=== PATIENT | female | born 1940 | race Caucasian/White ===

== ENCOUNTER 2020-06-26 12:34 | Inpatient (IN) | payer BC ==
[2020-06-26 12:42] VITALS: BMI 26.6
[2020-06-26] MEDS ORDERED: METOPROLOL TARTRATE 5 MG/5 ML VIAL IVPUSH ONE ×3 (13:38→16:02)
[2020-06-26] MEDS ORDERED: METOPROLOL TARTRATE 5 MG/5 ML VIAL ONE ×4 (14:19→16:36)
[2020-06-26 14:37] LABS: BASO % 0.3 % (0-2.0); EOS % 0.6 % (0-4.5); HEMATOCRIT 41.5 % (32.4-45.2); HEMOGLOBIN 13.3 GM/dL (10.7-15.3); LYMPH % 15.6 % (8-40); MCH 28.8 pg (25.7-33.7); MEAN CELL VOLUME 90.1 fl (80-96); MEAN PLT VOLUME 8.3 fl (7.5-11.1); MONO % 8.3 % (3.8-10.2); NEUT % 75.2 % (42.8-82.8); PLATELET COUNT 250 K/MM3 (134-434); RBC 4.61 M/mm3 (3.60-5.2); RDW 16.5 % (11.6-15.6); WHITE BLOOD COUNT 6.9 K/mm3 (4.0-10.0)
[2020-06-26] MEDS ORDERED: dilTIAZem HCL 50 MG/10 ML - 10 ML VIAL IVPUSH ONE ×4 (14:50→21:26)
[2020-06-26 14:55] LABS: POTASSIUM 4.2 mmol/L (3.5-5.1)
[2020-06-26 14:58] LABS: ALBUMIN 3.4 g/dl (3.4-5.0); BLOOD UREA NITROGEN 25.1 mg/dL (7-18); CALCIUM 9.2 mg/dL (8.5-10.1)
[2020-06-26 15:01] LABS: CREATININE 0.7 mg/dL (0.55-1.3)
[2020-06-26] MEDS ORDERED: dilTIAZem HCL 125 MG/25 ML - 25 ML VIAL ONE (15:01)
[2020-06-26 15:03] LABS: BILIRUBIN,TOTAL 0.3 mg/dL (0.2-1); TOT PROT 6.7 g/dl (6.4-8.2)
[2020-06-26 15:06] LABS: N-TERMINAL BNP 3422.9 pg/ml (5-450)
[2020-06-26] MEDS ORDERED: dilTIAZem HCL 50 MG/10 ML - 10 ML VIAL ONE (15:33)
[2020-06-26] MEDS ORDERED: DILTIAZEM INJECTION 125 MG in SODIUM CHLORIDE 100 ML IVPB SCH (21:30)
[2020-06-26] MEDS ORDERED: APIXABAN 5 MG TABLET PO SCH (22:00)
[2020-06-26] MEDS ORDERED: APIXABAN 5 MG TABLET ONE (22:54)
[2020-06-26 23:12] VITALS: TEMP 98.5
[2020-06-27] MEDS ORDERED: DILTIAZEM INJECTION 125 MG in SODIUM CHLORIDE 100 ML IVPB SCH (00:50)
[2020-06-27 06:31] VITALS: BP 139/105; PULSE 150
== END 2020-06-27 06:42 | disposition short-term general hospital (02) | DRG 309 ==
LOC: JER 12:34 → JERBED 17:47
PROVIDERS: ADMIT Hospitalist; ATTEND Hospitalist
DX: I48.0 Paroxysmal atrial fibrillation (principal); I24.8 Other forms of acute ischemic heart disease; R77.8 Other specified abnormalities of plasma proteins; M06.9 Rheumatoid arthritis, unspecified; I11.0 Hypertensive heart disease with heart failure; I50.9 Heart failure, unspecified; I48.92 Unspecified atrial flutter
CPT/HCPCS: 36415; 71045-TC-FY; 80053; 82550; 83880; 84484; 85025; 93005; 93010; 99291; C9803; U0003; U0005

== ENCOUNTER 2020-08-31 10:02 | Emergency (ER) | payer BC ==
[2020-08-31 10:06] VITALS: BP 161/85; PULSE 84; TEMP 98.4; BMI 26.6
[2020-08-31 12:13] LABS: BASO % 0.1 % (0-2.0); EOS % 0.2 % (0-4.5); HEMATOCRIT 31.1 % (32.4-45.2); HEMOGLOBIN 10.2 GM/dL (10.7-15.3); LYMPH % 3.6 % (8-40); MCH 28.9 pg (25.7-33.7); MCHC 32.7 g/dl (32.0-36.0); MEAN CELL VOLUME 88.4 fl (80-96); MEAN PLT VOLUME 6.6 fl (7.5-11.1); MONO % 4.9 % (3.8-10.2); NEUT % 91.2 % (42.8-82.8); PLATELET COUNT 390 K/MM3 (134-434); RBC 3.52 M/mm3 (3.60-5.2); RDW 16.8 % (11.6-15.6); WHITE BLOOD COUNT 11.3 K/mm3 (4.0-10.0)
[2020-08-31] MEDS ORDERED: ACETAMINOPHEN 1000 MG/100 ML VIAL (NON FORMULARY) IVPB ONE (12:18)
[2020-08-31 12:20] LABS: INR 1.26 (0.83-1.09); PROTHROMBIN TIME (PATIENT) 15.1 SEC (9.7-13.0)
[2020-08-31 12:23] LABS: ACTIVATED PTT 40.3 SECONDS (25.2-36.5)
[2020-08-31 12:28] LABS: CHLORIDE 107 mmol/L (98-107); SODIUM 142 mmol/L (136-145)
[2020-08-31 12:30] LABS: ALBUMIN 3.4 g/dl (3.4-5.0); ANION GAP 7 MMOL/L (8-16); CALCIUM 9.2 mg/dL (8.5-10.1); CO2 28 mmol/L (21-32)
[2020-08-31 12:31] LABS: BLOOD UREA NITROGEN 18.9 mg/dL (7-18); GLUCOSE,RANDOM 97 mg/dL (74-106); MAGNESIUM 2.3 mg/dL (1.8-2.4)
[2020-08-31 12:33] LABS: SGPT/ALT 14 U/L (13-61)
[2020-08-31 12:34] LABS: CREATININE 0.6 mg/dL (0.55-1.3); SGOT/AST 17 U/L (15-37)
[2020-08-31 12:35] LABS: BILIRUBIN,TOTAL 0.5 mg/dL (0.2-1); TOT PROT 6.8 g/dl (6.4-8.2)
[2020-08-31 12:36] LABS: ALK PHOS 102 U/L (45-117)
[2020-08-31 12:39] LABS: N-TERMINAL BNP 641.1 pg/ml (5-450)
[2020-08-31] MEDS ORDERED: ACETAMINOPHEN INJECTION 100 ML IVPB ONE (13:26)
[2020-08-31 15:13] LABS: ANISOCYTOSIS 0; MACROCYTOSIS 0; PLATELET ESTIMATE NORMAL
== END 2020-08-31 14:00 | disposition home or self-care (01) ==
LOC: JER 10:02
PROC: 3E0333Z Introduction of Anti-inflammatory into Peripheral Vein, Percutaneous Approach (ICD-10-PCS; principal; 2020-08-31)
DX: R22.42 Localized swelling, mass and lump, left lower limb (principal); R22.41 Localized swelling, mass and lump, right lower limb; M25.561 Pain in right knee
CPT/HCPCS: 36415; 71045-TC-FY; 73562-TC-RT-FY; 80053; 82550; 83735; 83880; 84443; 84484; 85025; 85610; 85730; 93005; 93010; 93970-TC; 99285-25; C9803; J0131; U0003; U0005

== ENCOUNTER 2020-10-16 10:38 | Inpatient (IN) | payer BC, OTHER ==
[2020-10-16 10:54] VITALS: BMI 25.0
[2020-10-16] MEDS ORDERED: ACETAMINOPHEN 325 MG TABLET (FP) PO ONE ×2 (11:52→22:45)
[2020-10-16] MEDS ORDERED: ACETAMINOPHEN 325 MG TABLET (FP) ONE ×2 (12:04→16:43)
[2020-10-16 12:07] LABS: BASO % 0.4 % (0-2.0); EOS % 0.9 % (0-4.5); HEMATOCRIT 19.4 % (32.4-45.2); LYMPH % 12.2 % (8-40); MCH 25.7 pg (25.7-33.7); MCHC 30.5 g/dl (32.0-36.0); MEAN CELL VOLUME 84.3 fl (80-96); MEAN PLT VOLUME 5.9 fl (7.5-11.1); MONO % 4.6 % (3.8-10.2); NEUT % 81.9 % (42.8-82.8); PLATELET COUNT 549 10^3/uL (134-434); RDW 22.1 % (11.6-15.6); WHITE BLOOD COUNT 8.4 K/mm3 (4.0-10.0)
[2020-10-16 12:13] LABS: HEMOGLOBIN 5.9 GM/dL (10.7-15.3)
[2020-10-16 12:28] LABS: CALCIUM 8.2 mg/dL (8.5-10.1)
[2020-10-16 12:29] LABS: ALBUMIN 2.6 g/dl (3.4-5.0); BLOOD UREA NITROGEN 18.6 mg/dL (7-18); MAGNESIUM 2.2 mg/dL (1.8-2.4)
[2020-10-16 12:32] LABS: CREATININE 0.6 mg/dL (0.55-1.3)
[2020-10-16 12:34] LABS: BILIRUBIN,TOTAL 0.6 mg/dL (0.2-1)
[2020-10-16 13:04] LABS: INR 1.56 (0.83-1.09); PROTHROMBIN TIME (PATIENT) 18.9 SEC (9.7-13.0)
[2020-10-16 13:07] LABS: ACTIVATED PTT 38.4 SECONDS (25.2-36.5)
[2020-10-16 13:54] LABS: ANISOCYTOSIS 1+; MACROCYTOSIS 0; PLATELET ESTIMATE INCREASED
[2020-10-16] MEDS ORDERED: PANTOPRAZOLE SODIUM 80 MG in SODIUM CHLORIDE 100 ML IVPB SCH (15:15)
[2020-10-16] MEDS ORDERED: LACTATED RINGERS SOLUTION 1,000 ML/1,000 ML INFUS.BAG IV SCH (15:15)
[2020-10-16] MEDS: PANTOPRAZOLE SODIUM 160 MG in SODIUM CHLORIDE 290 ML IVPB SCH (16:02)
[2020-10-16] MEDS ORDERED: METHOTREXATE 2.5 MG TABLET PO SCH (16:45)
[2020-10-16] MEDS: ACETAMINOPHEN 325 MG TABLET (FP) PO PRN (16:48)
[2020-10-16 22:01] LABS: HEMATOCRIT 22.8 % (32.4-45.2); MCH 25.9 pg (25.7-33.7); MCHC 30.5 g/dl (32.0-36.0); MEAN CELL VOLUME 85.1 fl (80-96); MEAN PLT VOLUME 6.3 fl (7.5-11.1); PLATELET COUNT 523 10^3/uL (134-434); RBC 2.68 M/mm3 (3.60-5.2); WHITE BLOOD COUNT 9.7 K/mm3 (4.0-10.0)
[2020-10-16] MEDS ORDERED: metoPROLOL SUCCINATE 25 MG TAB.SR.24H (FP) PO ONE (22:33)
[2020-10-16] MEDS ORDERED: oxyCODONE HCL 5 MG TABLET PO ONE (22:45)
[2020-10-17] MEDS: ACETAMINOPHEN 325 MG TABLET (FP) PO PRN ×3 (06:44→21:32)
[2020-10-17 07:29] LABS: BASO % 0.4 % (0-2.0); HEMATOCRIT 23.4 % (32.4-45.2); HEMOGLOBIN 7.3 GM/dL (10.7-15.3); LYMPH % 10.1 % (8-40); MCH 26.7 pg (25.7-33.7); MCHC 31.2 g/dl (32.0-36.0); MEAN CELL VOLUME 85.6 fl (80-96); MEAN PLT VOLUME 6.2 fl (7.5-11.1); MONO % 5.9 % (3.8-10.2); NEUT % 82.6 % (42.8-82.8); PLATELET COUNT 513 10^3/uL (134-434); RBC 2.73 M/mm3 (3.60-5.2); RDW 20.8 % (11.6-15.6)
[2020-10-17 07:51] LABS: ALBUMIN 2.6 g/dl (3.4-5.0); BLOOD UREA NITROGEN 11.3 mg/dL (7-18); CALCIUM 8.2 mg/dL (8.5-10.1); MAGNESIUM 2.2 mg/dL (1.8-2.4)
[2020-10-17 07:54] LABS: CREATININE 0.5 mg/dL (0.55-1.3)
[2020-10-17 07:55] LABS: PHOSPHOROUS 3.5 mg/dL (2.5-4.9)
[2020-10-17 07:56] LABS: BILIRUBIN,TOTAL 0.9 mg/dL (0.2-1); TOT PROT 5.7 g/dl (6.4-8.2)
[2020-10-17 08:14] LABS: EPI CELLS 6 /uL (0-25.1); HYALINE CASTS 0 /uL (0-3.1); PH,URINE 6.5 (5.0-8.0); URINE APPEARANCE CLEAR; URINE BACTERIA 57 /uL (0-1359); URINE BILIRUBIN NEGATIVE (NEGATIVE); URINE COLOR YELLOW; URINE GLUCOSE (UA) NEGATIVE (NEGATIVE); URINE KETONE 1+ (NEGATIVE); URINE LEUK ESTERASE NEGATIVE (NEGATIVE); URINE NITRITE NEGATIVE (NEGATIVE); URINE PROTEIN 1+ (NEGATIVE); URINE RBC 4 /uL (0-23.9); URINE WBC 14 /uL (0-25.8)
[2020-10-17] MEDS ORDERED: LACTATED RINGERS SOLUTION 1,000 ML/1,000 ML INFUS.BAG IV SCH (08:28)
[2020-10-17] MEDS ORDERED: FUROSEMIDE 40 MG/4 ML INJECTABLE VIAL IVPUSH ONE (09:58)
[2020-10-17] MEDS: metoPROLOL SUCCINATE 25 MG TAB.SR.24H (FP) PO SCH (10:22)
[2020-10-17] MEDS: AMIODARONE HCL 200 MG TABLET PO SCH (10:22)
[2020-10-17] MEDS: PANTOPRAZOLE SODIUM 160 MG in SODIUM CHLORIDE 290 ML IVPB SCH (14:24)
[2020-10-17] MEDS: LISINOPRIL 10 MG TABLET PO SCH (21:33)
[2020-10-17] MEDS ORDERED: ATORVASTATIN CA 10 MG TABLET (FP) PO SCH (22:00)
[2020-10-17] MEDS ORDERED: MORPHINE SULFATE 2 MG/ML VIAL IVPUSH ONE (22:37)
[2020-10-18 06:41] LABS: BASO % 0.3 % (0-2.0); EOS % 0.7 % (0-4.5); HEMATOCRIT 22.2 % (32.4-45.2); LYMPH % 5.6 % (8-40); MCH 26.6 pg (25.7-33.7); MCHC 31.2 g/dl (32.0-36.0); MEAN CELL VOLUME 85.3 fl (80-96); MEAN PLT VOLUME 6.4 fl (7.5-11.1); MONO % 7.4 % (3.8-10.2); PLATELET COUNT 440 10^3/uL (134-434); RDW 21.4 % (11.6-15.6); WHITE BLOOD COUNT 9.2 K/mm3 (4.0-10.0)
[2020-10-18 06:57] LABS: HEMOGLOBIN 6.9 GM/dL (10.7-15.3)
[2020-10-18 07:01] LABS: BLOOD UREA NITROGEN 10.4 mg/dL (7-18); CALCIUM 8.1 mg/dL (8.5-10.1)
[2020-10-18 07:02] LABS: ALBUMIN 2.3 g/dl (3.4-5.0)
[2020-10-18 07:05] LABS: CREATININE 0.4 mg/dL (0.55-1.3); PHOSPHOROUS 3.2 mg/dL (2.5-4.9)
[2020-10-18 07:06] LABS: BILIRUBIN,TOTAL 0.8 mg/dL (0.2-1); TOT PROT 5.2 g/dl (6.4-8.2)
[2020-10-18] MEDS ORDERED: PANTOPRAZOLE 40 MG TABLET PO SCH (10:00)
[2020-10-18] MEDS: AMIODARONE HCL 200 MG TABLET PO SCH (10:09)
[2020-10-18] MEDS: metoPROLOL SUCCINATE 25 MG TAB.SR.24H (FP) PO SCH (10:10)
[2020-10-18] MEDS: LISINOPRIL 10 MG TABLET PO SCH ×2 (10:10→22:01)
[2020-10-18] MEDS: PANTOPRAZOLE SODIUM 160 MG in SODIUM CHLORIDE 290 ML IVPB SCH (10:27)
[2020-10-18] MEDS ORDERED: POTASSIUM CHLORIDE TABS 20 MEQ TABLET.ER (FP) PO ONE (12:42)
[2020-10-18] MEDS ORDERED: fentaNYL CITRATE 250 MCG/5 ML VIAL ONE (13:55)
[2020-10-18] MEDS ORDERED: PROPOFOL 20 ML ONE (13:56)
[2020-10-18] MEDS ORDERED: SUCCINYLCHOLINE CHLORIDE 200 MG/10 ML SYRINGE ONE (13:57)
[2020-10-18] MEDS ORDERED: ONDANSETRON 4 MG/2 ML VIAL IVPUSH PRN (15:53)
[2020-10-18] MEDS ORDERED: MORPHINE SULFATE 2 MG/ML VIAL IVPUSH ONE (16:03)
[2020-10-18] MEDS ORDERED: MIDAZOLAM HCL 2 MG/2 ML SINGLE DOSE VIAL ONE (16:35)
[2020-10-18] MEDS ORDERED: ACETAMINOPHEN INJECTION 100 ML IVPB ONE (16:35)
[2020-10-18] MEDS ORDERED: ACETAMINOPHEN 1000 MG/100 ML VIAL (NON FORMULARY) IVPB ONE ×3 (16:40→22:00)
[2020-10-18] MEDS: MIDAZOLAM HCL 2 MG/2 ML SINGLE DOSE VIAL IVPUSH PRN ×2 (16:50→17:04)
[2020-10-18] MEDS ORDERED: HYDROmorphone HCl 2 MG/ML VIAL ONE (17:09)
[2020-10-18] MEDS ORDERED: HYDROmorphone HCl 2 MG/ML VIAL IVPUSH ONE ×2 (17:12→17:23)
[2020-10-18] MEDS ORDERED: PT OWN MED DRAWER 7, Y5N ONE ×2 (17:37→20:29)
[2020-10-18] MEDS ORDERED: METHOTREXATE 2.5 MG TABLET PO SCH (18:00)
[2020-10-18] MEDS ORDERED: HYDROmorphone HCl 2 MG/ML VIAL IVPUSH PRN (20:12)
[2020-10-18] MEDS: oxyCODONE HCL 5 MG TABLET PO PRN (20:46)
[2020-10-18] MEDS: ATORVASTATIN CA 10 MG TABLET (FP) PO SCH (21:59)
[2020-10-18] MEDS ORDERED: ceFAZolin 2 GRAM PREMIX BAG IVPB SCH (23:00)
[2020-10-18] MEDS: ceFAZolin 2 GRAM PREMIX BAG IVPB SCH (23:10)
[2020-10-18] MEDS: LACTATED RINGERS SOLUTION 1,000 ML/1,000 ML INFUS.BAG IV SCH (23:11)
[2020-10-19] MEDS: oxyCODONE HCL 5 MG TABLET PO PRN ×2 (03:58→21:44)
[2020-10-19] MEDS: ACETAMINOPHEN 325 MG TABLET (FP) PO PRN ×2 (04:04→21:43)
[2020-10-19] MEDS: ceFAZolin 2 GRAM PREMIX BAG IVPB SCH (06:36)
[2020-10-19 06:50] LABS: BASO % 0.4 % (0-2.0); EOS % 1.4 % (0-4.5); HEMATOCRIT 24.1 % (32.4-45.2); HEMOGLOBIN 7.7 GM/dL (10.7-15.3); LYMPH % 4.2 % (8-40); MCH 27.2 pg (25.7-33.7); MCHC 31.9 g/dl (32.0-36.0); MEAN CELL VOLUME 85.3 fl (80-96); MEAN PLT VOLUME 6.1 fl (7.5-11.1); MONO % 8.3 % (3.8-10.2); NEUT % 85.7 % (42.8-82.8); PLATELET COUNT 394 10^3/uL (134-434); RBC 2.82 M/mm3 (3.60-5.2); RDW 20.6 % (11.6-15.6); WHITE BLOOD COUNT 9.4 K/mm3 (4.0-10.0)
[2020-10-19 07:16] LABS: CALCIUM 7.9 mg/dL (8.5-10.1); CREATININE 0.5 mg/dL (0.55-1.3); PHOSPHOROUS 3.6 mg/dL (2.5-4.9)
[2020-10-19 07:17] LABS: ALBUMIN 2.2 g/dl (3.4-5.0); BLOOD UREA NITROGEN 11.8 mg/dL (7-18); MAGNESIUM 1.8 mg/dL (1.8-2.4)
[2020-10-19 07:18] LABS: BILIRUBIN,TOTAL 0.6 mg/dL (0.2-1); TOT PROT 5.2 g/dl (6.4-8.2)
[2020-10-19] MEDS: AMIODARONE HCL 200 MG TABLET PO SCH (10:20)
[2020-10-19] MEDS: PANTOPRAZOLE 40 MG TABLET PO SCH (10:20)
[2020-10-19] MEDS: LISINOPRIL 10 MG TABLET PO SCH (10:20)
[2020-10-19] MEDS: metoPROLOL SUCCINATE 25 MG TAB.SR.24H (FP) PO SCH (10:30)
[2020-10-19] MEDS: LACTATED RINGERS SOLUTION 1,000 ML/1,000 ML INFUS.BAG IV SCH (15:26)
[2020-10-19] MEDS: ATORVASTATIN CA 10 MG TABLET (FP) PO SCH (21:46)
[2020-10-20] MEDS: LISINOPRIL 10 MG TABLET PO SCH ×3 (06:31→21:01)
[2020-10-20] MEDS: ACETAMINOPHEN 325 MG TABLET (FP) PO PRN (06:33)
[2020-10-20] MEDS: oxyCODONE HCL 5 MG TABLET PO PRN ×3 (06:35→21:01)
[2020-10-20 07:47] LABS: BASO % 0.3 % (0-2.0); EOS % 2.3 % (0-4.5); HEMATOCRIT 23.6 % (32.4-45.2); HEMOGLOBIN 7.6 GM/dL (10.7-15.3); LYMPH % 6.1 % (8-40); MCH 27.4 pg (25.7-33.7); MEAN CELL VOLUME 85.5 fl (80-96); MEAN PLT VOLUME 6.4 fl (7.5-11.1); MONO % 7.9 % (3.8-10.2); NEUT % 83.4 % (42.8-82.8); PLATELET COUNT 394 10^3/uL (134-434); RBC 2.76 M/mm3 (3.60-5.2); RDW 20.6 % (11.6-15.6); WHITE BLOOD COUNT 8.2 K/mm3 (4.0-10.0)
[2020-10-20 07:57] LABS: BLOOD UREA NITROGEN 13.7 mg/dL (7-18); CALCIUM 7.9 mg/dL (8.5-10.1)
[2020-10-20 07:59] LABS: CREATININE 0.5 mg/dL (0.55-1.3)
[2020-10-20 08:00] LABS: PHOSPHOROUS 2.6 mg/dL (2.5-4.9)
[2020-10-20 08:01] LABS: BILIRUBIN,TOTAL 0.4 mg/dL (0.2-1)
[2020-10-20] MEDS: PANTOPRAZOLE 40 MG TABLET PO SCH (09:57)
[2020-10-20] MEDS: AMIODARONE HCL 200 MG TABLET PO SCH (09:58)
[2020-10-20] MEDS: metoPROLOL SUCCINATE 25 MG TAB.SR.24H (FP) PO SCH (09:58)
[2020-10-20 12:04] LABS: ANISOCYTOSIS 1+; MACROCYTOSIS 1+; PLATELET ESTIMATE NORMAL; TARGET CELLS 1+
[2020-10-20] MEDS: LACTATED RINGERS SOLUTION 1,000 ML/1,000 ML INFUS.BAG IV SCH (16:52)
[2020-10-20] MEDS: ATORVASTATIN CA 10 MG TABLET (FP) PO SCH (21:01)
[2020-10-21 07:13] LABS: HEMATOCRIT 23.3 % (32.4-45.2); HEMOGLOBIN 7.1 GM/dL (10.7-15.3); MCH 26.3 pg (25.7-33.7); MCHC 30.7 g/dl (32.0-36.0); MEAN CELL VOLUME 85.7 fl (80-96); MEAN PLT VOLUME 6.4 fl (7.5-11.1); PLATELET COUNT 398 10^3/uL (134-434); RBC 2.72 M/mm3 (3.60-5.2); RDW 20.3 % (11.6-15.6); WHITE BLOOD COUNT 6.1 K/mm3 (4.0-10.0)
[2020-10-21 07:36] LABS: BLOOD UREA NITROGEN 14.9 mg/dL (7-18)
[2020-10-21 07:39] LABS: CREATININE 0.5 mg/dL (0.55-1.3)
[2020-10-21] MEDS: AMIODARONE HCL 200 MG TABLET PO SCH (09:56)
[2020-10-21] MEDS: LISINOPRIL 10 MG TABLET PO SCH ×2 (09:56→21:36)
[2020-10-21] MEDS: PANTOPRAZOLE 40 MG TABLET PO SCH (09:57)
[2020-10-21] MEDS: metoPROLOL SUCCINATE 25 MG TAB.SR.24H (FP) PO SCH (09:57)
[2020-10-21] MEDS: SENNOSIDES 8.6MG TABLET (FP) PO PRN (09:58)
[2020-10-21] MEDS ORDERED: POLYETHYLENE GLYCOL (HEALTHYLAX) 3350 17 GM PACKET PO SCH (10:00)
[2020-10-21] MEDS: oxyCODONE HCL 5 MG TABLET PO PRN (10:30)
[2020-10-21] MEDS: ACETAMINOPHEN 325 MG TABLET (FP) PO PRN ×2 (10:31→22:41)
[2020-10-21] MEDS ORDERED: METHOTREXATE 2.5 MG TABLET PO SCH (11:00)
[2020-10-21] MEDS: POLYETHYLENE GLYCOL (HEALTHYLAX) 3350 17 GM PACKET PO SCH ×2 (14:03→21:37)
[2020-10-21] MEDS: LACTATED RINGERS SOLUTION 1,000 ML/1,000 ML INFUS.BAG IV SCH (16:12)
[2020-10-21] MEDS: ATORVASTATIN CA 10 MG TABLET (FP) PO SCH (21:36)
[2020-10-21] MEDS: DOCUSATE SODIUM 100 MG CAPSULE (FP) PO SCH (21:36)
[2020-10-22] MEDS: LACTATED RINGERS SOLUTION 1,000 ML/1,000 ML INFUS.BAG IV SCH (01:47)
[2020-10-22] MEDS: POLYETHYLENE GLYCOL (HEALTHYLAX) 3350 17 GM PACKET PO SCH ×3 (05:00→21:54)
[2020-10-22] MEDS ORDERED: LISINOPRIL 10 MG TABLET PO ONE (06:38)
[2020-10-22] MEDS ORDERED: metoPROLOL SUCCINATE 25 MG TAB.SR.24H (FP) PO ONE (07:00)
[2020-10-22 08:02] LABS: BASO % 0.4 % (0-2.0); EOS % 2.5 % (0-4.5); HEMATOCRIT 25.6 % (32.4-45.2); LYMPH % 6.9 % (8-40); MCH 26.5 pg (25.7-33.7); MCHC 31.1 g/dl (32.0-36.0); MEAN CELL VOLUME 85.1 fl (80-96); MEAN PLT VOLUME 6.5 fl (7.5-11.1); NEUT % 83.2 % (42.8-82.8); PLATELET COUNT 467 10^3/uL (134-434); RBC 3.01 M/mm3 (3.60-5.2); WHITE BLOOD COUNT 7.8 K/mm3 (4.0-10.0)
[2020-10-22 08:17] LABS: CALCIUM 8.2 mg/dL (8.5-10.1)
[2020-10-22 08:18] LABS: ALBUMIN 2.3 g/dl (3.4-5.0)
[2020-10-22 08:20] LABS: BLOOD UREA NITROGEN 11.4 mg/dL (7-18)
[2020-10-22 08:21] LABS: CREATININE 0.4 mg/dL (0.55-1.3); PHOSPHOROUS 2.5 mg/dL (2.5-4.9)
[2020-10-22 08:22] LABS: BILIRUBIN,TOTAL 0.4 mg/dL (0.2-1); TOT PROT 5.6 g/dl (6.4-8.2)
[2020-10-22] MEDS: AMIODARONE HCL 200 MG TABLET PO SCH (09:12)
[2020-10-22] MEDS: PANTOPRAZOLE 40 MG TABLET PO SCH (09:12)
[2020-10-22] MEDS: ACETAMINOPHEN 325 MG TABLET (FP) PO PRN (12:22)
[2020-10-22] MEDS: oxyCODONE HCL 5 MG TABLET PO PRN (13:48)
[2020-10-22] MEDS ORDERED: FUROSEMIDE 40 MG/4 ML INJECTABLE VIAL IVPUSH ONE (14:15)
[2020-10-22] MEDS ORDERED: amLODIPine BESYLATE 5 MG TABLET (FP) PO ONE (14:44)
[2020-10-22] MEDS: ATORVASTATIN CA 10 MG TABLET (FP) PO SCH (21:54)
[2020-10-22] MEDS: DOCUSATE SODIUM 100 MG CAPSULE (FP) PO SCH (21:54)
[2020-10-22] MEDS: LISINOPRIL 10 MG TABLET PO SCH (21:54)
[2020-10-23] MEDS: POLYETHYLENE GLYCOL (HEALTHYLAX) 3350 17 GM PACKET PO SCH ×3 (06:00→21:44)
[2020-10-23 08:31] LABS: BASO % 0.5 % (0-2.0); EOS % 1.9 % (0-4.5); HEMATOCRIT 24.5 % (32.4-45.2); HEMOGLOBIN 7.7 GM/dL (10.7-15.3); LYMPH % 11.3 % (8-40); MCH 26.7 pg (25.7-33.7); MCHC 31.5 g/dl (32.0-36.0); MEAN CELL VOLUME 84.5 fl (80-96); MEAN PLT VOLUME 6.7 fl (7.5-11.1); MONO % 8.4 % (3.8-10.2); NEUT % 77.9 % (42.8-82.8); PLATELET COUNT 471 10^3/uL (134-434); RDW 20.4 % (11.6-15.6); WHITE BLOOD COUNT 7.3 K/mm3 (4.0-10.0)
[2020-10-23 08:59] LABS: ALBUMIN 2.1 g/dl (3.4-5.0); BLOOD UREA NITROGEN 9.3 mg/dL (7-18); CALCIUM 7.9 mg/dL (8.5-10.1)
[2020-10-23 09:02] LABS: PHOSPHOROUS 2.9 mg/dL (2.5-4.9)
[2020-10-23 09:03] LABS: CREATININE 0.4 mg/dL (0.55-1.3)
[2020-10-23 09:04] LABS: BILIRUBIN,TOTAL 0.5 mg/dL (0.2-1); TOT PROT 5.3 g/dl (6.4-8.2)
[2020-10-23] MEDS: metoPROLOL SUCCINATE 25 MG TAB.SR.24H (FP) PO SCH (09:45)
[2020-10-23] MEDS: AMIODARONE HCL 200 MG TABLET PO SCH (09:45)
[2020-10-23] MEDS: PANTOPRAZOLE 40 MG TABLET PO SCH (09:46)
[2020-10-23] MEDS: LISINOPRIL 10 MG TABLET PO SCH ×2 (09:46→21:40)
[2020-10-23] MEDS: oxyCODONE HCL 5 MG TABLET PO PRN (13:19)
[2020-10-23] MEDS: ACETAMINOPHEN 325 MG TABLET (FP) PO PRN (13:21)
[2020-10-23] MEDS: DOCUSATE SODIUM 100 MG CAPSULE (FP) PO SCH (21:40)
[2020-10-23] MEDS: SENNOSIDES 8.6MG TABLET (FP) PO PRN (21:40)
[2020-10-23] MEDS: ATORVASTATIN CA 10 MG TABLET (FP) PO SCH (21:40)
[2020-10-24] MEDS: POLYETHYLENE GLYCOL (HEALTHYLAX) 3350 17 GM PACKET PO SCH (07:06)
[2020-10-24 07:54] LABS: BASO % 0.8 % (0-2.0); EOS % 3.3 % (0-4.5); HEMATOCRIT 25.4 % (32.4-45.2); MCH 26.3 pg (25.7-33.7); MCHC 31.5 g/dl (32.0-36.0); MEAN CELL VOLUME 83.7 fl (80-96); MEAN PLT VOLUME 6.4 fl (7.5-11.1); MONO % 8.5 % (3.8-10.2); NEUT % 78.4 % (42.8-82.8); PLATELET COUNT 516 10^3/uL (134-434); RBC 3.04 M/mm3 (3.60-5.2); RDW 20.4 % (11.6-15.6); WHITE BLOOD COUNT 6.5 K/mm3 (4.0-10.0)
[2020-10-24 08:18] LABS: ALBUMIN 2.3 g/dl (3.4-5.0); BLOOD UREA NITROGEN 11.2 mg/dL (7-18); CALCIUM 8.1 mg/dL (8.5-10.1)
[2020-10-24 08:21] LABS: CREATININE 0.4 mg/dL (0.55-1.3)
[2020-10-24 08:22] LABS: PHOSPHOROUS 3.2 mg/dL (2.5-4.9)
[2020-10-24 08:23] LABS: BILIRUBIN,TOTAL 0.5 mg/dL (0.2-1); TOT PROT 5.7 g/dl (6.4-8.2)
[2020-10-24] MEDS ORDERED: FUROSEMIDE 40 MG/4 ML INJECTABLE VIAL IVPUSH ONE ×2 (10:35)
[2020-10-24] MEDS ORDERED: MAG HYDROX/AL HYDROX/SIMETH 30 ML UNIT-DOSE CUP PO PRN (10:35)
[2020-10-24] MEDS: PANTOPRAZOLE 40 MG TABLET PO SCH (11:02)
[2020-10-24] MEDS: LISINOPRIL 10 MG TABLET PO SCH ×2 (11:02→21:35)
[2020-10-24] MEDS: metoPROLOL SUCCINATE 25 MG TAB.SR.24H (FP) PO SCH (11:02)
[2020-10-24] MEDS: MULTIVITAMINS THER W-MINERALS COMBO TABLET (FP) PO SCH (11:02)
[2020-10-24] MEDS: AMIODARONE HCL 200 MG TABLET PO SCH (11:03)
[2020-10-24] MEDS: ACETAMINOPHEN 325 MG TABLET (FP) PO PRN ×2 (14:19→22:05)
[2020-10-24 15:09] LABS: N-TERMINAL BNP 2938.4 pg/ml (5-450)
[2020-10-24] MEDS: DOCUSATE SODIUM 100 MG CAPSULE (FP) PO SCH (21:35)
[2020-10-24] MEDS: ATORVASTATIN CA 10 MG TABLET (FP) PO SCH (21:35)
[2020-10-25] MEDS: oxyCODONE HCL 5 MG TABLET PO PRN ×3 (01:27→21:14)
[2020-10-25] MEDS: AMIODARONE HCL 200 MG TABLET PO SCH (09:13)
[2020-10-25] MEDS: PANTOPRAZOLE 40 MG TABLET PO SCH (09:13)
[2020-10-25] MEDS: metoPROLOL SUCCINATE 25 MG TAB.SR.24H (FP) PO SCH (09:14)
[2020-10-25] MEDS: MULTIVITAMINS THER W-MINERALS COMBO TABLET (FP) PO SCH (09:15)
[2020-10-25] MEDS: POLYETHYLENE GLYCOL (HEALTHYLAX) 3350 17 GM PACKET PO SCH (09:15)
[2020-10-25] MEDS: LISINOPRIL 10 MG TABLET PO SCH ×2 (09:15→21:15)
[2020-10-25 11:57] LABS: BASO % 0.5 % (0-2.0); EOS % 2.8 % (0-4.5); HEMATOCRIT 25.2 % (32.4-45.2); HEMOGLOBIN 7.9 GM/dL (10.7-15.3); LYMPH % 7.7 % (8-40); MCHC 31.2 g/dl (32.0-36.0); MEAN CELL VOLUME 83.2 fl (80-96); MEAN PLT VOLUME 6.5 fl (7.5-11.1); MONO % 8.1 % (3.8-10.2); NEUT % 80.9 % (42.8-82.8); PLATELET COUNT 552 10^3/uL (134-434); RBC 3.02 M/mm3 (3.60-5.2); RDW 20.6 % (11.6-15.6); WHITE BLOOD COUNT 7.7 K/mm3 (4.0-10.0)
[2020-10-25 12:26] LABS: CALCIUM 8.3 mg/dL (8.5-10.1)
[2020-10-25 12:27] LABS: ALBUMIN 2.3 g/dl (3.4-5.0); BLOOD UREA NITROGEN 11.7 mg/dL (7-18); MAGNESIUM 2.2 mg/dL (1.8-2.4)
[2020-10-25 12:30] LABS: CREATININE 0.5 mg/dL (0.55-1.3); PHOSPHOROUS 3.3 mg/dL (2.5-4.9)
[2020-10-25 12:31] LABS: BILIRUBIN,TOTAL 0.6 mg/dL (0.2-1)
[2020-10-25 12:32] LABS: TOT PROT 5.7 g/dl (6.4-8.2)
[2020-10-25 13:51] LABS: ANISOCYTOSIS 1+; MACROCYTOSIS 0; OVALOCYTE 1+; PLATELET ESTIMATE INCREASED; TEAR DROP CELLS 1+
[2020-10-25] MEDS: ATORVASTATIN CA 10 MG TABLET (FP) PO SCH (21:15)
[2020-10-25] MEDS: DOCUSATE SODIUM 100 MG CAPSULE (FP) PO SCH (21:15)
[2020-10-26] MEDS: oxyCODONE HCL 5 MG TABLET PO PRN (06:50)
[2020-10-26 07:54] LABS: BASO % 0.7 % (0-2.0); HEMATOCRIT 25.8 % (32.4-45.2); HEMOGLOBIN 7.9 GM/dL (10.7-15.3); LYMPH % 9.5 % (8-40); MCH 25.5 pg (25.7-33.7); MCHC 30.8 g/dl (32.0-36.0); MEAN CELL VOLUME 82.8 fl (80-96); MEAN PLT VOLUME 6.8 fl (7.5-11.1); MONO % 8.8 % (3.8-10.2); PLATELET COUNT 598 10^3/uL (134-434); RBC 3.11 M/mm3 (3.60-5.2); WHITE BLOOD COUNT 6.9 K/mm3 (4.0-10.0)
[2020-10-26 08:12] LABS: CALCIUM 8.4 mg/dL (8.5-10.1)
[2020-10-26 08:13] LABS: ALBUMIN 2.4 g/dl (3.4-5.0); BLOOD UREA NITROGEN 10.6 mg/dL (7-18); MAGNESIUM 2.3 mg/dL (1.8-2.4)
[2020-10-26 08:14] LABS: CREATININE 0.5 mg/dL (0.55-1.3)
[2020-10-26 08:16] LABS: PHOSPHOROUS 3.8 mg/dL (2.5-4.9)
[2020-10-26 08:17] LABS: BILIRUBIN,TOTAL 0.4 mg/dL (0.2-1); TOT PROT 5.8 g/dl (6.4-8.2)
[2020-10-26 09:35] VITALS: BP 145/70; PULSE 86; TEMP 98.1
[2020-10-26] MEDS ORDERED: METHOTREXATE 2.5 MG TABLET PO SCH (10:00)
[2020-10-26] MEDS: POLYETHYLENE GLYCOL (HEALTHYLAX) 3350 17 GM PACKET PO SCH (10:08)
[2020-10-26] MEDS: LISINOPRIL 10 MG TABLET PO SCH (10:08)
[2020-10-26] MEDS: MULTIVITAMINS THER W-MINERALS COMBO TABLET (FP) PO SCH (10:08)
[2020-10-26] MEDS: AMIODARONE HCL 200 MG TABLET PO SCH (10:08)
[2020-10-26] MEDS: PANTOPRAZOLE 40 MG TABLET PO SCH (10:08)
[2020-10-26] MEDS: metoPROLOL SUCCINATE 25 MG TAB.SR.24H (FP) PO SCH (10:08)
== END 2020-10-26 10:27 | DRG 488 ==
LOC: JER 10:38 → JERBED 12:25 → INTOOBSV 12:25 → OBSVTOIN 15:05 → J4W 20:39
PROVIDERS: ATTEND Internal Medicine
PROC: 30233N1 Transfusion of Nonautologous Red Blood Cells into Peripheral Vein, Percutaneous Approach (ICD-10-PCS; 2020-10-16)
PROC: 0S9C0ZZ Drainage of Right Knee Joint, Open Approach (ICD-10-PCS; principal; 2020-10-18 15:00)
DX: M25.061 Hemarthrosis, right knee (principal); D62 Acute posthemorrhagic anemia; S80.01XA Contusion of right knee, initial encounter; I10 Essential (primary) hypertension; E87.6 Hypokalemia; E78.5 Hyperlipidemia, unspecified; D64.9 Anemia, unspecified; Z79.01 Long term (current) use of anticoagulants; E11.9 Type 2 diabetes mellitus without complications; I48.0 Paroxysmal atrial fibrillation; M06.9 Rheumatoid arthritis, unspecified; M25.461 Effusion, right knee; K59.00 Constipation, unspecified; W19.XXXA Unspecified fall, initial encounter; Y93.89 Activity, other specified; Y92.89 Other specified places as the place of occurrence of the external cause; Y99.8 Other external cause status
CPT/HCPCS: 36415; 36430; 36511; 71045-TC-FY; 73560-TC-RT-FY; 73700-TC-RT; 80048; 80053; 81003; 82272; 82550; 82607; 82728; 82746; 83010; 83540; 83550; 83615; 83735; 83880; 84100; 84436; 84443; 84484; 85025; 85027; 85045; 85610; 85730; 86140; 86850; 86900; 86901; 86922; 87070; 87205; 93005; 93010; 94010; 94760; 94761; 97116-GP; 97162-GP; 99285-25; C9803; G0378; J0131; J8610; P9038; P9058; U0003; U0005

== ENCOUNTER 2022-03-08 05:09 | Inpatient (IN) | payer BC ==
[2022-03-08] MEDS ORDERED: METOPROLOL TARTRATE 5 MG/5 ML VIAL ONE ×2 (05:17→08:52)
[2022-03-08] MEDS ORDERED: METOPROLOL TARTRATE 5 MG/5 ML VIAL IVPUSH ONE ×2 (05:28→08:25)
[2022-03-08 07:03] LABS: INR 1.15 (0.83-1.09); PROTHROMBIN TIME (PATIENT) 13.3 SEC (9.7-13.0)
[2022-03-08 07:06] LABS: ACTIVATED PTT 34.8 SECONDS (25.2-36.5)
[2022-03-08] MEDS ORDERED: metoPROLOL SUCCINATE 25 MG TAB.SR.24H (FP) PO ONE ×2 (07:20→07:26)
[2022-03-08 07:30] LABS: BASO % 0.4 % (0-2.0); EOS % 0.2 % (0-4.5); HEMOGLOBIN 13.5 GM/dL (10.7-15.3); MCH 28.4 pg (25.7-33.7); MCHC 31.5 g/dl (32.0-36.0); MEAN CELL VOLUME 90.1 fl (80-96); MEAN PLT VOLUME 8.4 fl (7.5-11.1); MONO % 6.6 % (3.8-10.2); NEUT % 80.8 % (42.8-82.8); PLATELET COUNT 282 10^3/uL (134-434); RBC 4.77 M/mm3 (3.60-5.2); RDW 20.9 % (11.6-15.6); WHITE BLOOD COUNT 9.1 K/mm3 (4.0-10.0)
[2022-03-08 07:34] LABS: LACTIC ACID 2.7 mmol/L (0.4-2.0)
[2022-03-08] MEDS ORDERED: SODIUM CHLORIDE 1,000 ML IV STA (08:27)
[2022-03-08 08:35] LABS: ALBUMIN 3.4 g/dl (3.4-5.0)
[2022-03-08 08:36] LABS: MAGNESIUM 2.4 mg/dL (1.8-2.4)
[2022-03-08 08:38] LABS: PHOSPHOROUS 3.7 mg/dL (2.5-4.9)
[2022-03-08 08:39] LABS: CREATININE 1.1 mg/dL (0.55-1.3)
[2022-03-08 08:40] LABS: BILIRUBIN,TOTAL 0.5 mg/dL (0.2-1); TOT PROT 6.7 g/dl (6.4-8.2)
[2022-03-08 09:06] LABS: ANISOCYTOSIS 1+; MACROCYTOSIS 0
[2022-03-08] MEDS ORDERED: dilTIAZem HCL 125 MG/25 ML - 25 ML VIAL ONE ×2 (09:24→12:47)
[2022-03-08] MEDS ORDERED: METOPROLOL TARTRATE 25 MG TABLET (FP) ONE ×3 (09:24→18:08)
[2022-03-08] MEDS ORDERED: dilTIAZem HCL 50 MG/10 ML - 10 ML VIAL IVPUSH ONE ×2 (09:25→12:43)
[2022-03-08] MEDS ORDERED: METOPROLOL TARTRATE 25 MG TABLET (FP) PO SCH (09:30)
[2022-03-08 10:51] LABS: N-TERMINAL BNP 7890.6 pg/ml (5-450)
[2022-03-08] MEDS: METOPROLOL TARTRATE 25 MG TABLET (FP) PO SCH ×2 (11:57→18:11)
[2022-03-08] MEDS ORDERED: CALCIUM GLUCONATE 10% - 1,000 MG/10 ML VIAL IVPUSH ONE (13:41)
[2022-03-08] MEDS ORDERED: SODIUM CHLORIDE 500 ML IV STA (14:17)
[2022-03-08] MEDS ORDERED: HEPARIN NA (PORCINE) 5,000 UNITS/ML 1ML VIAL IVPUSH ONE (14:55)
[2022-03-08] MEDS ORDERED: HEPARIN NA (PORCINE) 5,000 UNITS/ML 1ML VIAL IVPUSH PRN ×2 (14:55)
[2022-03-08] MEDS ORDERED: AMIODARONE HCL 200 MG TABLET PO ONE (14:59)
[2022-03-08] MEDS ORDERED: AMIODARONE HCL 200 MG TABLET ONE (15:13)
[2022-03-08] MEDS ORDERED: HEPARIN INFUSION - 25,000 UNITS/500 ML INFUS.BAG IVPB ONE ×2 (15:14→16:41)
[2022-03-08] MEDS ORDERED: HEPARIN NA (PORCINE) 5,000 UNITS/ML 1ML VIAL ONE ×2 (15:14→16:41)
[2022-03-08] MEDS: HEPARIN INFUSION - 25,000 UNITS/500 ML INFUS.BAG IVPB SCH (16:50)
[2022-03-09 00:37] LABS: INR 1.15 (0.83-1.09); PROTHROMBIN TIME (PATIENT) 13.2 SEC (9.7-13.0)
[2022-03-09 00:40] LABS: ACTIVATED PTT 93.1 SECONDS (25.2-36.5)
[2022-03-09] MEDS: METOPROLOL TARTRATE 25 MG TABLET (FP) PO SCH ×4 (00:48→17:08)
[2022-03-09] MEDS ORDERED: METOPROLOL TARTRATE 25 MG TABLET (FP) ONE (00:48)
[2022-03-09 01:34] LABS: URINE APPEARANCE CLOUDY; URINE BILIRUBIN NEGATIVE (NEGATIVE); URINE COLOR YELLOW; URINE GLUCOSE (UA) NEGATIVE (NEGATIVE); URINE KETONE NEGATIVE (NEGATIVE); URINE LEUK ESTERASE NEGATIVE (NEGATIVE); URINE NITRITE NEGATIVE (NEGATIVE); URINE PROTEIN TRACE (NEGATIVE); URINE UROBILINOGEN 0.2 mg/dL (0.2-1.0)
[2022-03-09 07:46] LABS: BASO % 0.4 % (0-2.0); HEMOGLOBIN 11.7 GM/dL (10.7-15.3); LYMPH % 13.5 % (8-40); MCH 29.3 pg (25.7-33.7); MCHC 32.4 g/dl (32.0-36.0); MEAN CELL VOLUME 90.5 fl (80-96); MEAN PLT VOLUME 8.3 fl (7.5-11.1); MONO % 7.7 % (3.8-10.2); NEUT % 77.4 % (42.8-82.8); PLATELET COUNT 211 10^3/uL (134-434); RBC 3.98 M/mm3 (3.60-5.2); RDW 19.5 % (11.6-15.6); WHITE BLOOD COUNT 7.7 K/mm3 (4.0-10.0)
[2022-03-09 08:14] LABS: CALCIUM 8.4 mg/dL (8.5-10.1)
[2022-03-09 08:15] LABS: BLOOD UREA NITROGEN 24.6 mg/dL (7-18)
[2022-03-09 08:18] LABS: CREATININE 0.9 mg/dL (0.55-1.3)
[2022-03-09] MEDS: MUPIROCIN 2% TOPICAL OINTMENT FOR DECOLONIZATION NS SCH ×2 (09:42→21:36)
[2022-03-09] MEDS: PANTOPRAZOLE 20 MG TABLET PO SCH (09:43)
[2022-03-09] MEDS: ASPIRIN COATED 81 MG TABLET.EC PO SCH (09:43)
[2022-03-09] MEDS ORDERED: AMIODARONE HCL 200 MG TABLET PO SCH (10:00)
[2022-03-09 11:26] LABS: MAGNESIUM 2.1 mg/dL (1.8-2.4)
[2022-03-09 11:30] LABS: PHOSPHOROUS 2.9 mg/dL (2.5-4.9)
[2022-03-09] MEDS ORDERED: METOPROLOL TARTRATE 5 MG/5 ML VIAL IVPUSH ONE ×3 (14:59→17:27)
[2022-03-09] MEDS: HEPARIN INFUSION - 25,000 UNITS/500 ML INFUS.BAG IVPB SCH (17:05)
[2022-03-09] MEDS: CHLORHEXIDINE GLUCONATE 4% CLEANSER FOR DECOLONIZATION TP SCH (21:36)
[2022-03-09] MEDS: AMIODARONE HCL 200 MG TABLET PO SCH (21:36)
[2022-03-10] MEDS: METOPROLOL TARTRATE 25 MG TABLET (FP) PO SCH ×4 (00:40→18:10)
[2022-03-10 07:25] LABS: HEMATOCRIT 36.5 % (32.4-45.2); HEMOGLOBIN 11.8 GM/dL (10.7-15.3); MCH 28.9 pg (25.7-33.7); MCHC 32.2 g/dl (32.0-36.0); MEAN CELL VOLUME 89.8 fl (80-96); MEAN PLT VOLUME 8.6 fl (7.5-11.1); PLATELET COUNT 210 10^3/uL (134-434); RBC 4.07 M/mm3 (3.60-5.2); RDW 19.9 % (11.6-15.6); WHITE BLOOD COUNT 7.3 K/mm3 (4.0-10.0)
[2022-03-10 07:46] LABS: ALBUMIN 2.7 g/dl (3.4-5.0); BLOOD UREA NITROGEN 19.5 mg/dL (7-18); CALCIUM 8.3 mg/dL (8.5-10.1)
[2022-03-10 07:50] LABS: CREATININE 0.8 mg/dL (0.55-1.3); PHOSPHOROUS 2.4 mg/dL (2.5-4.9)
[2022-03-10 07:51] LABS: BILIRUBIN,TOTAL 0.5 mg/dL (0.2-1); TOT PROT 5.7 g/dl (6.4-8.2)
[2022-03-10] MEDS: PANTOPRAZOLE 20 MG TABLET PO SCH (10:57)
[2022-03-10] MEDS: ASPIRIN COATED 81 MG TABLET.EC PO SCH (10:57)
[2022-03-10] MEDS: MUPIROCIN 2% TOPICAL OINTMENT FOR DECOLONIZATION NS SCH ×2 (10:57→22:11)
[2022-03-10] MEDS: AMIODARONE HCL 200 MG TABLET PO SCH ×2 (10:57→22:11)
[2022-03-10] MEDS ORDERED: METOPROLOL TARTRATE 25 MG TABLET (FP) PO ONE (14:33)
[2022-03-10] MEDS ORDERED: ACETAMINOPHEN 325 MG TABLET (FP) PO ONE (15:00)
[2022-03-10] MEDS: HEPARIN INFUSION - 25,000 UNITS/500 ML INFUS.BAG IVPB SCH (16:40)
[2022-03-10] MEDS: METOPROLOL TARTRATE 50 MG TABLET (FP) PO SCH (22:11)
[2022-03-10] MEDS: CHLORHEXIDINE GLUCONATE 4% CLEANSER FOR DECOLONIZATION TP SCH (22:12)
[2022-03-10] MEDS ORDERED: METOPROLOL TARTRATE 5 MG/5 ML VIAL ONE ×2 (22:28→22:35)
[2022-03-11] MEDS ORDERED: METOPROLOL TARTRATE 5 MG/5 ML VIAL IVPUSH ONE ×4 (00:02→11:30)
[2022-03-11] MEDS: METOPROLOL TARTRATE 50 MG TABLET (FP) PO SCH ×3 (05:45→21:23)
[2022-03-11] MEDS ORDERED: AMIODARONE HCL 200 MG TABLET PO ONE (06:30)
[2022-03-11 08:52] LABS: BASO % 0.4 % (0-2.0); EOS % 0.7 % (0-4.5); HEMATOCRIT 38.5 % (32.4-45.2); LYMPH % 9.5 % (8-40); MCH 28.2 pg (25.7-33.7); MCHC 31.2 g/dl (32.0-36.0); MEAN CELL VOLUME 90.4 fl (80-96); MEAN PLT VOLUME 8.8 fl (7.5-11.1); MONO % 7.2 % (3.8-10.2); NEUT % 82.2 % (42.8-82.8); PLATELET COUNT 210 10^3/uL (134-434); RBC 4.26 M/mm3 (3.60-5.2); RDW 19.4 % (11.6-15.6); WHITE BLOOD COUNT 7.6 K/mm3 (4.0-10.0)
[2022-03-11] MEDS: AMIODARONE HCL 200 MG TABLET PO SCH ×2 (09:02→21:23)
[2022-03-11] MEDS: PANTOPRAZOLE 20 MG TABLET PO SCH (09:02)
[2022-03-11] MEDS: ASPIRIN COATED 81 MG TABLET.EC PO SCH (09:02)
[2022-03-11] MEDS: MUPIROCIN 2% TOPICAL OINTMENT FOR DECOLONIZATION NS SCH (09:03)
[2022-03-11 09:29] LABS: BLOOD UREA NITROGEN 20.6 mg/dL (7-18)
[2022-03-11 09:30] LABS: ALBUMIN 2.8 g/dl (3.4-5.0); MAGNESIUM 2.3 mg/dL (1.8-2.4)
[2022-03-11 09:33] LABS: CREATININE 0.8 mg/dL (0.55-1.3); PHOSPHOROUS 2.9 mg/dL (2.5-4.9)
[2022-03-11 09:34] LABS: TOT PROT 5.9 g/dl (6.4-8.2)
[2022-03-11 09:35] LABS: BILIRUBIN,TOTAL 0.6 mg/dL (0.2-1)
[2022-03-11] MEDS ORDERED: METOPROLOL TARTRATE 5 MG/5 ML VIAL IVPUSH PRN (11:30)
[2022-03-11] MEDS ORDERED: ONDANSETRON 4 MG/2 ML VIAL IVPUSH PRN (11:37)
[2022-03-11] MEDS: FUROSEMIDE 40 MG/4 ML INJECTABLE VIAL IVPUSH SCH (11:45)
[2022-03-11] MEDS ORDERED: ONDANSETRON 4 MG/2 ML VIAL ONE (11:55)
[2022-03-11] MEDS: POLYETHYLENE GLYCOL (HEALTHYLAX) 3350 17 GM PACKET PO SCH (13:10)
[2022-03-11] MEDS ORDERED: HEPARIN INFUSION - 25,000 UNITS/500 ML INFUS.BAG IVPB SCH (20:36)
[2022-03-11] MEDS ORDERED: HEPARIN NA (PORCINE) 5,000 UNITS/ML 1ML VIAL IVPUSH PRN ×4 (20:36)
[2022-03-11] MEDS: dilTIAZem HCL 30 MG TABLET PO SCH (21:23)
[2022-03-11] MEDS ORDERED: MUPIROCIN 2% TOPICAL OINTMENT FOR DECOLONIZATION NS SCH (22:00)
[2022-03-11] MEDS ORDERED: CHLORHEXIDINE GLUCONATE 4% CLEANSER FOR DECOLONIZATION TP SCH (22:00)
[2022-03-12] MEDS: dilTIAZem HCL 30 MG TABLET PO SCH ×3 (05:24→22:18)
[2022-03-12] MEDS: METOPROLOL TARTRATE 50 MG TABLET (FP) PO SCH ×3 (05:24→22:17)
[2022-03-12 08:12] LABS: HEMATOCRIT 36.4 % (32.4-45.2); HEMOGLOBIN 11.4 GM/dL (10.7-15.3); MCH 28.5 pg (25.7-33.7); MCHC 31.5 g/dl (32.0-36.0); MEAN CELL VOLUME 90.5 fl (80-96); MEAN PLT VOLUME 8.9 fl (7.5-11.1); PLATELET COUNT 198 10^3/uL (134-434); RBC 4.02 M/mm3 (3.60-5.2); RDW 19.4 % (11.6-15.6)
[2022-03-12] MEDS ORDERED: ASPIRIN COATED 81 MG TABLET.EC PO SCH (10:00)
[2022-03-12] MEDS: AMIODARONE HCL 200 MG TABLET PO SCH ×2 (10:22→22:17)
[2022-03-12] MEDS: POLYETHYLENE GLYCOL (HEALTHYLAX) 3350 17 GM PACKET PO SCH (10:23)
[2022-03-12] MEDS: FUROSEMIDE 40 MG/4 ML INJECTABLE VIAL IVPUSH SCH (10:23)
[2022-03-12] MEDS: PANTOPRAZOLE 20 MG TABLET PO SCH (10:23)
[2022-03-12] MEDS ORDERED: METOPROLOL TARTRATE 5 MG/5 ML VIAL IVPUSH ONE (12:47)
[2022-03-12 15:04] LABS: ALBUMIN 2.9 g/dl (3.4-5.0); BLOOD UREA NITROGEN 24.9 mg/dL (7-18); MAGNESIUM 2.2 mg/dL (1.8-2.4)
[2022-03-12 15:07] LABS: CREATININE 0.9 mg/dL (0.55-1.3); PHOSPHOROUS 2.7 mg/dL (2.5-4.9)
[2022-03-12 15:09] LABS: BILIRUBIN,TOTAL 0.6 mg/dL (0.2-1); TOT PROT 6.2 g/dl (6.4-8.2)
[2022-03-12] MEDS ORDERED: METOPROLOL TARTRATE 5 MG/5 ML VIAL IVPUSH PRN (16:09)
[2022-03-13] MEDS: dilTIAZem HCL 30 MG TABLET PO SCH ×3 (05:48→22:04)
[2022-03-13 08:10] LABS: HEMATOCRIT 36.2 % (32.4-45.2); HEMOGLOBIN 11.1 GM/dL (10.7-15.3); MCH 27.9 pg (25.7-33.7); MCHC 30.8 g/dl (32.0-36.0); MEAN CELL VOLUME 90.5 fl (80-96); PLATELET COUNT 199 10^3/uL (134-434); RBC 3.99 M/mm3 (3.60-5.2); RDW 19.7 % (11.6-15.6)
[2022-03-13 08:29] LABS: CALCIUM 9.1 mg/dL (8.5-10.1)
[2022-03-13 08:30] LABS: ALBUMIN 2.7 g/dl (3.4-5.0); BLOOD UREA NITROGEN 24.3 mg/dL (7-18)
[2022-03-13 08:33] LABS: CREATININE 0.8 mg/dL (0.55-1.3)
[2022-03-13 08:34] LABS: BILIRUBIN,TOTAL 0.6 mg/dL (0.2-1); TOT PROT 5.8 g/dl (6.4-8.2)
[2022-03-13] MEDS: AMIODARONE HCL 200 MG TABLET PO SCH ×2 (09:48→22:04)
[2022-03-13] MEDS: PANTOPRAZOLE 20 MG TABLET PO SCH (09:48)
[2022-03-13] MEDS: FUROSEMIDE 40 MG/4 ML INJECTABLE VIAL IVPUSH SCH (09:49)
[2022-03-13] MEDS: METOPROLOL TARTRATE 50 MG TABLET (FP) PO SCH ×3 (09:49→22:03)
[2022-03-13] MEDS: POLYETHYLENE GLYCOL (HEALTHYLAX) 3350 17 GM PACKET PO SCH (09:49)
[2022-03-13] MEDS ORDERED: METHOTREXATE 2.5 MG TABLET PO SCH (10:30)
[2022-03-13 15:12] LABS: MAGNESIUM 2.2 mg/dL (1.8-2.4)
[2022-03-14] MEDS: dilTIAZem HCL 30 MG TABLET PO SCH ×3 (05:45→21:03)
[2022-03-14 08:20] LABS: HEMATOCRIT 36.3 % (32.4-45.2); HEMOGLOBIN 11.3 GM/dL (10.7-15.3); MCH 28.1 pg (25.7-33.7); MCHC 31.2 g/dl (32.0-36.0); PLATELET COUNT 225 10^3/uL (134-434); RBC 4.03 M/mm3 (3.60-5.2); RDW 19.3 % (11.6-15.6); WHITE BLOOD COUNT 7.9 K/mm3 (4.0-10.0)
[2022-03-14 08:27] LABS: ALBUMIN 2.7 g/dl (3.4-5.0); BLOOD UREA NITROGEN 20.2 mg/dL (7-18); CREATININE 0.7 mg/dL (0.55-1.3)
[2022-03-14 08:28] LABS: BILIRUBIN,TOTAL 0.6 mg/dL (0.2-1); TOT PROT 5.8 g/dl (6.4-8.2)
[2022-03-14 08:29] LABS: CALCIUM 8.8 mg/dL (8.5-10.1)
[2022-03-14] MEDS: POLYETHYLENE GLYCOL (HEALTHYLAX) 3350 17 GM PACKET PO SCH (09:32)
[2022-03-14] MEDS: ASPIRIN 81 MG CHEWABLE TABLETS PO SCH (09:32)
[2022-03-14] MEDS: AMIODARONE HCL 200 MG TABLET PO SCH ×2 (09:32→21:03)
[2022-03-14] MEDS: PANTOPRAZOLE 20 MG TABLET PO SCH (09:32)
[2022-03-14] MEDS: METOPROLOL TARTRATE 50 MG TABLET (FP) PO SCH ×2 (09:32→21:03)
[2022-03-14 19:39] VITALS: BMI 26.8
[2022-03-15 03:56] VITALS: RESP 20
[2022-03-15 06:05] VITALS: TEMP 98
[2022-03-15] MEDS: dilTIAZem HCL 30 MG TABLET PO SCH ×2 (06:41→14:45)
[2022-03-15 08:17] LABS: BASO % 0.4 % (0-2.0); EOS % 1.8 % (0-4.5); HEMATOCRIT 38.5 % (32.4-45.2); LYMPH % 9.4 % (8-40); MCH 28.3 pg (25.7-33.7); MCHC 31.3 g/dl (32.0-36.0); MEAN CELL VOLUME 90.6 fl (80-96); MONO % 7.8 % (3.8-10.2); NEUT % 80.6 % (42.8-82.8); PLATELET COUNT 241 10^3/uL (134-434); RBC 4.25 M/mm3 (3.60-5.2); WHITE BLOOD COUNT 7.9 K/mm3 (4.0-10.0)
[2022-03-15 08:37] LABS: CALCIUM 9.1 mg/dL (8.5-10.1)
[2022-03-15 08:38] LABS: BLOOD UREA NITROGEN 22.1 mg/dL (7-18); MAGNESIUM 2.3 mg/dL (1.8-2.4)
[2022-03-15 08:41] LABS: CREATININE 0.8 mg/dL (0.55-1.3); PHOSPHOROUS 3.1 mg/dL (2.5-4.9)
[2022-03-15] MEDS: AMIODARONE HCL 200 MG TABLET PO SCH (10:22)
[2022-03-15] MEDS: POLYETHYLENE GLYCOL (HEALTHYLAX) 3350 17 GM PACKET PO SCH (10:22)
[2022-03-15] MEDS: ASPIRIN 81 MG CHEWABLE TABLETS PO SCH (10:22)
[2022-03-15] MEDS: PANTOPRAZOLE 20 MG TABLET PO SCH (10:22)
[2022-03-15] MEDS: METOPROLOL TARTRATE 50 MG TABLET (FP) PO SCH (10:22)
[2022-03-15] MEDS ORDERED: AMIODARONE HCL 200 MG TABLET PO ONE (13:58)
[2022-03-15] MEDS ORDERED: dilTIAZem HCL 30 MG TABLET PO ONE (14:23)
[2022-03-15] MEDS ORDERED: METOPROLOL TARTRATE 50 MG TABLET (FP) PO ONE (14:23)
[2022-03-15 17:10] VITALS: BP 150/68; PULSE 55
== END 2022-03-15 17:11 | disposition home or self-care (01) | DRG 309 ==
LOC: JER 05:09 → JERBED 08:55 → JICU 03-09 01:14 → J4W 03-11 14:38
PROVIDERS: ADMIT Internal Medicine Pulmonary Disease; ATTEND Internal Medicine
DX: I48.0 Paroxysmal atrial fibrillation (principal); I50.20 Unspecified systolic (congestive) heart failure; I50.32 Chronic diastolic (congestive) heart failure; I47.1 Supraventricular tachycardia; I25.119 Atherosclerotic heart disease of native coronary artery with unspecified angina pectoris; E78.5 Hyperlipidemia, unspecified; M06.9 Rheumatoid arthritis, unspecified; I11.0 Hypertensive heart disease with heart failure; R74.01 Elevation of levels of liver transaminase levels
CPT/HCPCS: 0241U-QW; 36415; 71045-TC-FY; 80048; 80053; 81003; 82272; 82550; 83605; 83735; 83880; 84100; 84443; 84484; 85025; 85027; 85610; 85730; 86850; 86900; 86901; 87086; 87186; 93005; 93010; 93306-TC; 99285-25; J1644

== ENCOUNTER 2022-03-25 11:22 | Inpatient (IN) | payer BC ==
[2022-03-25 13:53] LABS: BASO % 0.4 % (0-2.0); EOS % 0.1 % (0-4.5); HEMATOCRIT 36.7 % (32.4-45.2); HEMOGLOBIN 11.5 GM/dL (10.7-15.3); LYMPH % 8.5 % (8-40); MCH 28.3 pg (25.7-33.7); MCHC 31.4 g/dl (32.0-36.0); MEAN CELL VOLUME 90.2 fl (80-96); MEAN PLT VOLUME 7.9 fl (7.5-11.1); MONO % 6.7 % (3.8-10.2); NEUT % 84.3 % (42.8-82.8); PLATELET COUNT 350 10^3/uL (134-434); RBC 4.07 M/mm3 (3.60-5.2); RDW 19.4 % (11.6-15.6)
[2022-03-25] MEDS ORDERED: VANCOMYCIN 1 GM in D5W (PRE-DOCKED) 1,000 MG/250 ML IVPB ONE (14:05)
[2022-03-25] MEDS ORDERED: PIPERACILLIN/TAZOB 4.5 GM 4.5 GM in DEXTROSE 5%-WATER 100 ML IVPB ONE (14:06)
[2022-03-25] MEDS ORDERED: FUROSEMIDE 40 MG/4 ML INJECTABLE VIAL IVPUSH ONE (14:08)
[2022-03-25 14:18] LABS: ALBUMIN 3.1 g/dl (3.4-5.0); BLOOD UREA NITROGEN 22.3 mg/dL (7-18); CALCIUM 9.1 mg/dL (8.5-10.1)
[2022-03-25] MEDS ORDERED: PIPERACILLIN/TAZOB 4.5 GM 4.5 GM/100 ML BAG IVPB ONE (14:19)
[2022-03-25] MEDS ORDERED: FUROSEMIDE 40 MG/4 ML INJECTABLE VIAL ONE (14:19)
[2022-03-25] MEDS ORDERED: VANCOMYCIN/WATER FOR INJ (PEG) 1,000 MG/200 ML BAG IVPB ONE (14:19)
[2022-03-25 14:23] LABS: BILIRUBIN,TOTAL 0.7 mg/dL (0.2-1); TOT PROT 6.4 g/dl (6.4-8.2)
[2022-03-25 14:26] LABS: N-TERMINAL BNP 2402.4 pg/ml (5-450)
[2022-03-25 14:34] LABS: CREATININE 0.7 mg/dL (0.55-1.3)
[2022-03-25] MEDS ORDERED: NOREPINEPHRINE BITARTRATE 4 MG/4 ML ML IV ONE (15:07)
[2022-03-25] MEDS ORDERED: ACETAMINOPHEN 325 MG TABLET (FP) PO PRN (15:30)
[2022-03-25] MEDS ORDERED: METHOTREXATE 2.5 MG TABLET PO SCH (15:30)
[2022-03-25] MEDS ORDERED: POLYETHYLENE GLYCOL (HEALTHYLAX) 3350 17 GM PACKET ONE (21:08)
[2022-03-25] MEDS ORDERED: ATORVASTATIN CA 10 MG TABLET (FP) ONE (21:09)
[2022-03-25] MEDS ORDERED: LISINOPRIL 20 MG TABLET ONE (21:09)
[2022-03-25] MEDS ORDERED: dilTIAZem HCL 30 MG TABLET ONE (21:09)
[2022-03-25] MEDS ORDERED: METOPROLOL TARTRATE 50 MG TABLET (FP) ONE (21:09)
[2022-03-25] MEDS: ATORVASTATIN CA 10 MG TABLET (FP) PO SCH (21:15)
[2022-03-25] MEDS: LISINOPRIL 20 MG TABLET PO SCH (21:15)
[2022-03-25] MEDS: POLYETHYLENE GLYCOL (HEALTHYLAX) 3350 17 GM PACKET PO SCH (21:15)
[2022-03-25] MEDS: dilTIAZem HCL 30 MG TABLET PO SCH (21:15)
[2022-03-25] MEDS: METOPROLOL TARTRATE 50 MG TABLET (FP) PO SCH (21:15)
[2022-03-25] MEDS: METHOTREXATE 2.5 MG TABLET PO SCH (21:59)
[2022-03-25] MEDS ORDERED: AMIODARONE HCL 200 MG TABLET PO SCH (22:00)
[2022-03-26] MEDS ORDERED: FUROSEMIDE 40 MG/4 ML INJECTABLE VIAL ONE ×2 (06:50→13:40)
[2022-03-26] MEDS ORDERED: POLYETHYLENE GLYCOL (HEALTHYLAX) 3350 17 GM PACKET ONE ×2 (06:50→13:39)
[2022-03-26] MEDS ORDERED: dilTIAZem HCL 30 MG TABLET ONE ×2 (06:50→13:40)
[2022-03-26] MEDS: POLYETHYLENE GLYCOL (HEALTHYLAX) 3350 17 GM PACKET PO SCH ×3 (06:55→22:12)
[2022-03-26] MEDS: FUROSEMIDE 40 MG/4 ML INJECTABLE VIAL IVPUSH SCH ×2 (06:55→15:14)
[2022-03-26] MEDS: dilTIAZem HCL 30 MG TABLET PO SCH ×3 (06:57→22:11)
[2022-03-26 07:33] LABS: BASO % 0.5 % (0-2.0); HEMATOCRIT 32.8 % (32.4-45.2); HEMOGLOBIN 10.6 GM/dL (10.7-15.3); LYMPH % 12.2 % (8-40); MCH 28.8 pg (25.7-33.7); MCHC 32.3 g/dl (32.0-36.0); MEAN PLT VOLUME 7.5 fl (7.5-11.1); NEUT % 77.3 % (42.8-82.8); PLATELET COUNT 313 10^3/uL (134-434); RBC 3.68 M/mm3 (3.60-5.2); RDW 18.6 % (11.6-15.6); WHITE BLOOD COUNT 6.4 K/mm3 (4.0-10.0)
[2022-03-26 07:53] LABS: BLOOD UREA NITROGEN 25.5 mg/dL (7-18); CALCIUM 8.8 mg/dL (8.5-10.1); MAGNESIUM 2.4 mg/dL (1.8-2.4)
[2022-03-26 07:56] LABS: PHOSPHOROUS 4.4 mg/dL (2.5-4.9)
[2022-03-26] MEDS ORDERED: dilTIAZem HCL 30 MG TABLET PO SCH (10:00)
[2022-03-26] MEDS: METOPROLOL TARTRATE 50 MG TABLET (FP) PO SCH (10:36)
[2022-03-26] MEDS ORDERED: ENOXAPARIN NA (PORCINE) 40 MG/0.4 ML DISP.SYRIN SQ ONE (10:38)
[2022-03-26] MEDS ORDERED: LISINOPRIL 20 MG TABLET ONE (10:38)
[2022-03-26] MEDS ORDERED: ASPIRIN 81 MG CHEWABLE TABLETS ONE (10:38)
[2022-03-26] MEDS ORDERED: AMIODARONE HCL 200 MG TABLET ONE (10:38)
[2022-03-26] MEDS: LISINOPRIL 20 MG TABLET PO SCH ×2 (10:44→22:12)
[2022-03-26] MEDS: ASPIRIN 81 MG CHEWABLE TABLETS PO SCH (10:44)
[2022-03-26] MEDS: ENOXAPARIN NA (PORCINE) 40 MG/0.4 ML DISP.SYRIN SQ SCH (10:44)
[2022-03-26] MEDS: AMIODARONE HCL 200 MG TABLET PO SCH (10:44)
[2022-03-26] MEDS ORDERED: METOPROLOL TARTRATE 50 MG TABLET (FP) PO ONE (18:47)
[2022-03-26] MEDS ORDERED: METOPROLOL TARTRATE 5 MG/5 ML VIAL IVPUSH ONE (18:47)
[2022-03-26] MEDS ORDERED: METOPROLOL TARTRATE 50 MG TABLET (FP) ONE (18:55)
[2022-03-26] MEDS ORDERED: METOPROLOL TARTRATE 5 MG/5 ML VIAL ONE (18:55)
[2022-03-26] MEDS: ATORVASTATIN CA 10 MG TABLET (FP) PO SCH (22:11)
[2022-03-26 22:50] VITALS: BMI 27.1
[2022-03-27] MEDS: dilTIAZem HCL 30 MG TABLET PO SCH ×3 (05:49→23:40)
[2022-03-27] MEDS: FUROSEMIDE 40 MG/4 ML INJECTABLE VIAL IVPUSH SCH (05:50)
[2022-03-27] MEDS: POLYETHYLENE GLYCOL (HEALTHYLAX) 3350 17 GM PACKET PO SCH ×3 (05:53→23:40)
[2022-03-27] MEDS: AMIODARONE HCL 200 MG TABLET PO SCH ×2 (08:03→09:36)
[2022-03-27] MEDS: METOPROLOL TARTRATE 50 MG TABLET (FP) PO SCH ×3 (08:21→23:43)
[2022-03-27] MEDS ORDERED: dilTIAZem HCL 30 MG TABLET PO SCH (08:28)
[2022-03-27 08:35] LABS: CALCIUM 8.6 mg/dL (8.5-10.1)
[2022-03-27 08:36] LABS: ALBUMIN 2.8 g/dl (3.4-5.0); BLOOD UREA NITROGEN 22.3 mg/dL (7-18); MAGNESIUM 2.1 mg/dL (1.8-2.4)
[2022-03-27 08:39] LABS: CREATININE 0.8 mg/dL (0.55-1.3)
[2022-03-27 08:41] LABS: PHOSPHOROUS 3.3 mg/dL (2.5-4.9); TOT PROT 5.8 g/dl (6.4-8.2)
[2022-03-27] MEDS: ENOXAPARIN NA (PORCINE) 40 MG/0.4 ML DISP.SYRIN SQ SCH (09:35)
[2022-03-27] MEDS: ASPIRIN 81 MG CHEWABLE TABLETS PO SCH (09:35)
[2022-03-27 09:37] LABS: BILIRUBIN,DIRECT 0.2 mg/dL (0.0-0.2); BILIRUBIN,TOTAL 0.7 mg/dL (0.2-1)
[2022-03-27] MEDS: LISINOPRIL 20 MG TABLET PO SCH ×2 (09:38→23:43)
[2022-03-27] MEDS ORDERED: FLU VACC QS2022-23(6MOS UP)/PF 60 MCG/0.5 ML SYRINGE IM ONE (12:00)
[2022-03-27 13:48] LABS: CREATININE 0.9 mg/dL (0.55-1.3)
[2022-03-27] MEDS: ATORVASTATIN CA 10 MG TABLET (FP) PO SCH (23:41)
[2022-03-28] MEDS: dilTIAZem HCL 30 MG TABLET PO SCH ×3 (06:06→21:45)
[2022-03-28] MEDS: POLYETHYLENE GLYCOL (HEALTHYLAX) 3350 17 GM PACKET PO SCH ×3 (06:07→21:41)
[2022-03-28 08:20] LABS: HEMATOCRIT 35.1 % (32.4-45.2); HEMOGLOBIN 11.2 GM/dL (10.7-15.3); MCH 28.5 pg (25.7-33.7); MCHC 31.9 g/dl (32.0-36.0); MEAN CELL VOLUME 89.1 fl (80-96); MEAN PLT VOLUME 7.3 fl (7.5-11.1); PLATELET COUNT 289 10^3/uL (134-434); RBC 3.94 M/mm3 (3.60-5.2); RDW 18.7 % (11.6-15.6); WHITE BLOOD COUNT 6.1 K/mm3 (4.0-10.0)
[2022-03-28 09:14] LABS: CALCIUM 8.7 mg/dL (8.5-10.1)
[2022-03-28 09:15] LABS: MAGNESIUM 2.4 mg/dL (1.8-2.4)
[2022-03-28 09:18] LABS: CREATININE 0.8 mg/dL (0.55-1.3); PHOSPHOROUS 2.9 mg/dL (2.5-4.9)
[2022-03-28] MEDS: LISINOPRIL 20 MG TABLET PO SCH ×2 (09:24→21:42)
[2022-03-28] MEDS: ENOXAPARIN NA (PORCINE) 40 MG/0.4 ML DISP.SYRIN SQ SCH (09:24)
[2022-03-28] MEDS: FUROSEMIDE 40 MG/4 ML INJECTABLE VIAL IVPUSH SCH (09:25)
[2022-03-28] MEDS: ASPIRIN 81 MG CHEWABLE TABLETS PO SCH (09:26)
[2022-03-28] MEDS: METOPROLOL TARTRATE 50 MG TABLET (FP) PO SCH ×2 (09:26→21:42)
[2022-03-28] MEDS: AMIODARONE HCL 200 MG TABLET PO SCH (09:27)
[2022-03-28] MEDS ORDERED: guaiFENesin 200 MG/10 ML 10 ML UNIT-DOSE CUPS PO ONE (18:18)
[2022-03-28] MEDS: ATORVASTATIN CA 10 MG TABLET (FP) PO SCH (21:43)
[2022-03-29] MEDS: dilTIAZem HCL 30 MG TABLET PO SCH ×4 (06:43→22:07)
[2022-03-29] MEDS: POLYETHYLENE GLYCOL (HEALTHYLAX) 3350 17 GM PACKET PO SCH ×3 (06:43→22:07)
[2022-03-29 08:39] LABS: HEMATOCRIT 36.1 % (32.4-45.2); HEMOGLOBIN 11.4 GM/dL (10.7-15.3); MCH 28.3 pg (25.7-33.7); MCHC 31.5 g/dl (32.0-36.0); MEAN CELL VOLUME 89.7 fl (80-96); MEAN PLT VOLUME 7.3 fl (7.5-11.1); PLATELET COUNT 296 10^3/uL (134-434); RBC 4.02 M/mm3 (3.60-5.2); RDW 18.8 % (11.6-15.6); WHITE BLOOD COUNT 7.5 K/mm3 (4.0-10.0)
[2022-03-29 08:53] LABS: BLOOD UREA NITROGEN 17.5 mg/dL (7-18)
[2022-03-29 08:54] LABS: CALCIUM 8.6 mg/dL (8.5-10.1); MAGNESIUM 2.4 mg/dL (1.8-2.4)
[2022-03-29 08:57] LABS: CREATININE 0.8 mg/dL (0.55-1.3); PHOSPHOROUS 2.4 mg/dL (2.5-4.9)
[2022-03-29] MEDS: AMIODARONE HCL 200 MG TABLET PO SCH (10:02)
[2022-03-29] MEDS: METOPROLOL TARTRATE 50 MG TABLET (FP) PO SCH ×2 (10:02→22:07)
[2022-03-29] MEDS: ASPIRIN 81 MG CHEWABLE TABLETS PO SCH (10:02)
[2022-03-29] MEDS: FUROSEMIDE 40 MG/4 ML INJECTABLE VIAL IVPUSH SCH (10:02)
[2022-03-29] MEDS: ENOXAPARIN NA (PORCINE) 40 MG/0.4 ML DISP.SYRIN SQ SCH (10:02)
[2022-03-29] MEDS: LISINOPRIL 20 MG TABLET PO SCH ×2 (10:02→22:07)
[2022-03-29] MEDS: guaiFENesin 200 MG/10 ML 10 ML UNIT-DOSE CUPS PO PRN (18:30)
[2022-03-29] MEDS: ATORVASTATIN CA 10 MG TABLET (FP) PO SCH (22:07)
[2022-03-29] MEDS ORDERED: dilTIAZem HCL 50 MG/10 ML - 10 ML VIAL IVPUSH ONE (22:30)
[2022-03-30] MEDS ORDERED: SODIUM CHLORIDE 250 ML IV STA (02:08)
[2022-03-30] MEDS: POLYETHYLENE GLYCOL (HEALTHYLAX) 3350 17 GM PACKET PO SCH ×3 (06:47→21:27)
[2022-03-30] MEDS: dilTIAZem HCL 30 MG TABLET PO SCH ×3 (06:47→21:27)
[2022-03-30 09:24] LABS: HEMATOCRIT 38.7 % (32.4-45.2); HEMOGLOBIN 12.2 GM/dL (10.7-15.3); MCH 28.4 pg (25.7-33.7); MCHC 31.5 g/dl (32.0-36.0); MEAN CELL VOLUME 90.2 fl (80-96); MEAN PLT VOLUME 6.9 fl (7.5-11.1); PLATELET COUNT 275 10^3/uL (134-434); RDW 18.8 % (11.6-15.6); WHITE BLOOD COUNT 6.5 K/mm3 (4.0-10.0)
[2022-03-30 09:28] LABS: INR 1.2 (0.83-1.09); PROTHROMBIN TIME (PATIENT) 13.8 SEC (9.7-13.0)
[2022-03-30 09:54] LABS: CALCIUM 8.7 mg/dL (8.5-10.1)
[2022-03-30 09:55] LABS: ALBUMIN 2.8 g/dl (3.4-5.0); BLOOD UREA NITROGEN 13.4 mg/dL (7-18); MAGNESIUM 2.2 mg/dL (1.8-2.4)
[2022-03-30 09:58] LABS: CREATININE 0.8 mg/dL (0.55-1.3); PHOSPHOROUS 2.6 mg/dL (2.5-4.9)
[2022-03-30 09:59] LABS: BILIRUBIN,TOTAL 0.7 mg/dL (0.2-1); TOT PROT 6.1 g/dl (6.4-8.2)
[2022-03-30] MEDS: ASPIRIN 81 MG CHEWABLE TABLETS PO SCH (10:10)
[2022-03-30] MEDS: ENOXAPARIN NA (PORCINE) 40 MG/0.4 ML DISP.SYRIN SQ SCH (10:10)
[2022-03-30] MEDS: METOPROLOL TARTRATE 50 MG TABLET (FP) PO SCH ×3 (10:10→21:30)
[2022-03-30] MEDS: AMIODARONE HCL 200 MG TABLET PO SCH (10:10)
[2022-03-30] MEDS: LISINOPRIL 20 MG TABLET PO SCH ×2 (10:10→21:31)
[2022-03-30 10:19] LABS: ANISOCYTOSIS 2+; MACROCYTOSIS 1+; OVALOCYTE 1+
[2022-03-30 14:52] LABS: EPI CELLS 33 /uL (0-25.1); HYALINE CASTS 1 /uL (0-3.1); PH,URINE 6.5 (5.0-8.0); URINE APPEARANCE CLEAR; URINE BACTERIA >9,000 /uL (0-1359); URINE BILIRUBIN NEGATIVE (NEGATIVE); URINE COLOR YELLOW; URINE GLUCOSE (UA) NEGATIVE (NEGATIVE); URINE KETONE NEGATIVE (NEGATIVE); URINE LEUK ESTERASE NEGATIVE (NEGATIVE); URINE NITRITE NEGATIVE (NEGATIVE); URINE PROTEIN 1+ (NEGATIVE); URINE RBC 16 /uL (0-23.9); URINE WBC 6 /uL (0-25.8)
[2022-03-30] MEDS: ACETAMINOPHEN 325 MG TABLET (FP) PO PRN (16:52)
[2022-03-30] MEDS ORDERED: VANCOMYCIN/WATER 1,250 MG/250 ML BAG (RESTRICTED TO ID ONLY) IVPB ONE (17:13)
[2022-03-30] MEDS ORDERED: CEFEPIME 2 GM in DEXTROSE 5%-WATER 100 ML IVPB SCH (17:15)
[2022-03-30] MEDS: ATORVASTATIN CA 10 MG TABLET (FP) PO SCH (21:28)
[2022-03-30] MEDS: guaiFENesin 200 MG/10 ML 10 ML UNIT-DOSE CUPS PO PRN (21:31)
[2022-03-31] MEDS: METOPROLOL TARTRATE 50 MG TABLET (FP) PO SCH ×3 (00:08→22:09)
[2022-03-31] MEDS: dilTIAZem HCL 50 MG/10 ML - 10 ML VIAL IVPUSH PRN (00:39)
[2022-03-31] MEDS: ACETAMINOPHEN 325 MG TABLET (FP) PO PRN ×2 (01:04→16:09)
[2022-03-31] MEDS: BENZOCAINE/MENTH/CETYLPYRD CL 1 EACH LOZENGE MM PRN (01:05)
[2022-03-31] MEDS: dilTIAZem HCL 30 MG TABLET PO SCH ×3 (05:59→17:51)
[2022-03-31] MEDS: POLYETHYLENE GLYCOL (HEALTHYLAX) 3350 17 GM PACKET PO SCH ×3 (05:59→22:30)
[2022-03-31 07:47] LABS: BASO % 0.3 % (0-2.0); EOS % 0.5 % (0-4.5); HEMOGLOBIN 11.8 GM/dL (10.7-15.3); LYMPH % 5.3 % (8-40); MCH 28.4 pg (25.7-33.7); MEAN CELL VOLUME 88.9 fl (80-96); MEAN PLT VOLUME 7.4 fl (7.5-11.1); MONO % 8.9 % (3.8-10.2); PLATELET COUNT 247 10^3/uL (134-434); RBC 4.16 M/mm3 (3.60-5.2); RDW 19.2 % (11.6-15.6); WHITE BLOOD COUNT 6.1 K/mm3 (4.0-10.0)
[2022-03-31 07:54] LABS: CALCIUM 8.7 mg/dL (8.5-10.1)
[2022-03-31 07:55] LABS: ALBUMIN 2.8 g/dl (3.4-5.0); MAGNESIUM 2.1 mg/dL (1.8-2.4)
[2022-03-31 07:57] LABS: CREATININE 0.7 mg/dL (0.55-1.3); PHOSPHOROUS 2.8 mg/dL (2.5-4.9)
[2022-03-31 07:59] LABS: BLOOD UREA NITROGEN 15.8 mg/dL (7-18)
[2022-03-31 08:00] LABS: BILIRUBIN,TOTAL 0.5 mg/dL (0.2-1)
[2022-03-31] MEDS: FOLIC ACID 1 MG TABLET (FP) PO SCH (10:18)
[2022-03-31] MEDS: LISINOPRIL 20 MG TABLET PO SCH ×2 (10:18→22:18)
[2022-03-31] MEDS: AMIODARONE HCL 200 MG TABLET PO SCH ×2 (10:18→22:19)
[2022-03-31] MEDS: ENOXAPARIN NA (PORCINE) 40 MG/0.4 ML DISP.SYRIN SQ SCH (10:18)
[2022-03-31] MEDS: ASPIRIN 81 MG CHEWABLE TABLETS PO SCH (10:18)
[2022-03-31] MEDS: FUROSEMIDE 40 MG/4 ML INJECTABLE VIAL IVPUSH SCH (10:19)
[2022-03-31 14:20] LABS: N-TERMINAL BNP 1371.6 pg/ml (5-450)
[2022-03-31] MEDS: CEFTRIAXONE 1 GM in DEXTROSE 5%-WATER - 50 ML IVPB SCH (15:53)
[2022-03-31] MEDS: KCL 10 MEQ IVPB 10 MEQ/100 ML INFUS.BAG IVPB SCH ×3 (15:53→22:10)
[2022-03-31] MEDS ORDERED: REMDESIVIR 200 MG in SODIUM CHLORIDE 250 ML IVPB ONE (17:00)
[2022-03-31] MEDS ORDERED: KCL 10 MEQ IVPB 10 MEQ/100 ML INFUS.BAG IVPB SCH (22:15)
[2022-03-31] MEDS: ATORVASTATIN CA 10 MG TABLET (FP) PO SCH (22:18)
[2022-03-31] MEDS: guaiFENesin 200 MG/10 ML 10 ML UNIT-DOSE CUPS PO PRN (22:26)
[2022-04-01] MEDS: dilTIAZem HCL 30 MG TABLET PO SCH ×4 (00:11→17:46)
[2022-04-01] MEDS: guaiFENesin 200 MG/10 ML 10 ML UNIT-DOSE CUPS PO PRN ×2 (04:28→19:03)
[2022-04-01] MEDS: dilTIAZem HCL 50 MG/10 ML - 10 ML VIAL IVPUSH PRN (04:29)
[2022-04-01] MEDS: POLYETHYLENE GLYCOL (HEALTHYLAX) 3350 17 GM PACKET PO SCH ×3 (05:50→21:42)
[2022-04-01] MEDS: CEFTRIAXONE 1 GM in DEXTROSE 5%-WATER - 50 ML IVPB SCH (09:00)
[2022-04-01] MEDS: ENOXAPARIN NA (PORCINE) 40 MG/0.4 ML DISP.SYRIN SQ SCH (09:00)
[2022-04-01] MEDS: LISINOPRIL 20 MG TABLET PO SCH ×2 (09:01→21:54)
[2022-04-01] MEDS: FOLIC ACID 1 MG TABLET (FP) PO SCH (09:01)
[2022-04-01] MEDS: METOPROLOL TARTRATE 50 MG TABLET (FP) PO SCH ×2 (09:02→21:54)
[2022-04-01] MEDS: AMIODARONE HCL 200 MG TABLET PO SCH ×2 (09:03→21:54)
[2022-04-01] MEDS: ASPIRIN 81 MG CHEWABLE TABLETS PO SCH (09:03)
[2022-04-01] MEDS: FUROSEMIDE 40 MG/4 ML INJECTABLE VIAL IVPUSH SCH (09:03)
[2022-04-01] MEDS: METHOTREXATE 2.5 MG TABLET PO SCH (09:49)
[2022-04-01] MEDS ORDERED: CEFTRIAXONE 1 GM in DEXTROSE 5%-WATER - 50 ML IVPB SCH (10:00)
[2022-04-01] MEDS ORDERED: LISINOPRIL 20 MG TABLET PO SCH (13:23)
[2022-04-01] MEDS: DEXAMETHASONE SOD PHOSPHATE 10 MG/1 ML VIAL IVPUSH SCH (16:07)
[2022-04-01] MEDS: KCL 10 MEQ IVPB 10 MEQ/100 ML INFUS.BAG IVPB SCH ×2 (16:07→17:04)
[2022-04-01] MEDS: REMDESIVIR 100 MG in SODIUM CHLORIDE 250 ML IVPB SCH (16:08)
[2022-04-01] MEDS ORDERED: POTASSIUM CHLORIDE TABS 20 MEQ TABLET.ER (FP) PO ONE (16:52)
[2022-04-01] MEDS: ATORVASTATIN CA 10 MG TABLET (FP) PO SCH (21:54)
[2022-04-01] MEDS: BENZOCAINE/MENTH/CETYLPYRD CL 1 EACH LOZENGE MM PRN (21:55)
[2022-04-02] MEDS: dilTIAZem HCL 30 MG TABLET PO SCH ×4 (00:44→18:01)
[2022-04-02] MEDS: POLYETHYLENE GLYCOL (HEALTHYLAX) 3350 17 GM PACKET PO SCH ×3 (05:43→21:07)
[2022-04-02] MEDS: BENZOCAINE/MENTH/CETYLPYRD CL 1 EACH LOZENGE MM PRN ×3 (05:44→21:07)
[2022-04-02] MEDS: guaiFENesin 200 MG/10 ML 10 ML UNIT-DOSE CUPS PO PRN ×3 (05:44→21:07)
[2022-04-02 09:25] LABS: BASO % 0.1 % (0-2.0); HEMATOCRIT 36.5 % (32.4-45.2); HEMOGLOBIN 11.6 GM/dL (10.7-15.3); LYMPH % 8.6 % (8-40); MCH 28.4 pg (25.7-33.7); MCHC 31.8 g/dl (32.0-36.0); MEAN CELL VOLUME 89.2 fl (80-96); MEAN PLT VOLUME 7.7 fl (7.5-11.1); MONO % 5.4 % (3.8-10.2); NEUT % 85.9 % (42.8-82.8); PLATELET COUNT 224 10^3/uL (134-434); RBC 4.09 M/mm3 (3.60-5.2); RDW 19.3 % (11.6-15.6); WHITE BLOOD COUNT 4.5 K/mm3 (4.0-10.0)
[2022-04-02 09:57] LABS: ALBUMIN 2.7 g/dl (3.4-5.0); CALCIUM 8.6 mg/dL (8.5-10.1)
[2022-04-02 09:58] LABS: BLOOD UREA NITROGEN 23.3 mg/dL (7-18); MAGNESIUM 2.1 mg/dL (1.8-2.4)
[2022-04-02 10:00] LABS: CREATININE 0.7 mg/dL (0.55-1.3); PHOSPHOROUS 2.8 mg/dL (2.5-4.9)
[2022-04-02 10:02] LABS: BILIRUBIN,TOTAL 0.3 mg/dL (0.2-1)
[2022-04-02] MEDS: ENOXAPARIN NA (PORCINE) 40 MG/0.4 ML DISP.SYRIN SQ SCH (10:35)
[2022-04-02] MEDS: FUROSEMIDE 40 MG/4 ML INJECTABLE VIAL IVPUSH SCH (10:36)
[2022-04-02] MEDS: FOLIC ACID 1 MG TABLET (FP) PO SCH (10:36)
[2022-04-02] MEDS: LISINOPRIL 20 MG TABLET PO SCH ×2 (10:36→21:07)
[2022-04-02] MEDS: DEXAMETHASONE SOD PHOSPHATE 10 MG/1 ML VIAL IVPUSH SCH (10:36)
[2022-04-02] MEDS: METOPROLOL TARTRATE 50 MG TABLET (FP) PO SCH ×2 (10:36→21:07)
[2022-04-02] MEDS: ASPIRIN 81 MG CHEWABLE TABLETS PO SCH (10:36)
[2022-04-02] MEDS: AMIODARONE HCL 200 MG TABLET PO SCH ×2 (10:36→21:06)
[2022-04-02] MEDS: REMDESIVIR 100 MG in SODIUM CHLORIDE 250 ML IVPB SCH (16:20)
[2022-04-02] MEDS: ATORVASTATIN CA 10 MG TABLET (FP) PO SCH (21:07)
[2022-04-03] MEDS: dilTIAZem HCL 30 MG TABLET PO SCH ×5 (00:46→23:06)
[2022-04-03] MEDS: guaiFENesin 200 MG/10 ML 10 ML UNIT-DOSE CUPS PO PRN (03:42)
[2022-04-03] MEDS: BENZOCAINE/MENTH/CETYLPYRD CL 1 EACH LOZENGE MM PRN (03:42)
[2022-04-03] MEDS: POLYETHYLENE GLYCOL (HEALTHYLAX) 3350 17 GM PACKET PO SCH ×3 (06:01→22:21)
[2022-04-03 09:46] LABS: BASO % 0.1 % (0-2.0); HEMATOCRIT 33.8 % (32.4-45.2); HEMOGLOBIN 10.8 GM/dL (10.7-15.3); LYMPH % 7.9 % (8-40); MCH 28.6 pg (25.7-33.7); MCHC 32.1 g/dl (32.0-36.0); MONO % 6.9 % (3.8-10.2); NEUT % 85.1 % (42.8-82.8); PLATELET COUNT 223 10^3/uL (134-434); RDW 18.5 % (11.6-15.6); WHITE BLOOD COUNT 6.5 K/mm3 (4.0-10.0)
[2022-04-03] MEDS: FUROSEMIDE 40 MG TABLET (FP) PO SCH (09:50)
[2022-04-03] MEDS: FOLIC ACID 1 MG TABLET (FP) PO SCH (09:50)
[2022-04-03] MEDS: DEXAMETHASONE SOD PHOSPHATE 10 MG/1 ML VIAL IVPUSH SCH (09:50)
[2022-04-03] MEDS: AMIODARONE HCL 200 MG TABLET PO SCH ×2 (09:50→22:20)
[2022-04-03] MEDS: ASPIRIN 81 MG CHEWABLE TABLETS PO SCH (09:51)
[2022-04-03] MEDS: ENOXAPARIN NA (PORCINE) 40 MG/0.4 ML DISP.SYRIN SQ SCH (09:51)
[2022-04-03] MEDS: METOPROLOL TARTRATE 50 MG TABLET (FP) PO SCH ×2 (09:51→22:20)
[2022-04-03] MEDS: LISINOPRIL 20 MG TABLET PO SCH ×2 (09:57→22:20)
[2022-04-03 10:03] LABS: CALCIUM 8.4 mg/dL (8.5-10.1)
[2022-04-03 10:04] LABS: ALBUMIN 2.8 g/dl (3.4-5.0); BLOOD UREA NITROGEN 27.7 mg/dL (7-18); MAGNESIUM 2.2 mg/dL (1.8-2.4)
[2022-04-03 10:06] LABS: CREATININE 0.8 mg/dL (0.55-1.3); PHOSPHOROUS 2.6 mg/dL (2.5-4.9)
[2022-04-03 10:08] LABS: BILIRUBIN,TOTAL 0.3 mg/dL (0.2-1); TOT PROT 5.8 g/dl (6.4-8.2)
[2022-04-03] MEDS: REMDESIVIR 100 MG in SODIUM CHLORIDE 250 ML IVPB SCH (15:39)
[2022-04-03] MEDS: guaiFENesin/CODEINE 10 ML UNIT-DOSE CUPS PO SCH (22:20)
[2022-04-03] MEDS: ATORVASTATIN CA 10 MG TABLET (FP) PO SCH (22:21)
[2022-04-04] MEDS: POLYETHYLENE GLYCOL (HEALTHYLAX) 3350 17 GM PACKET PO SCH ×3 (07:06→21:55)
[2022-04-04] MEDS: dilTIAZem HCL 30 MG TABLET PO SCH ×4 (07:06→23:29)
[2022-04-04 09:18] LABS: BASO % 0.1 % (0-2.0); HEMATOCRIT 36.1 % (32.4-45.2); HEMOGLOBIN 11.6 GM/dL (10.7-15.3); MCH 28.4 pg (25.7-33.7); MCHC 32.1 g/dl (32.0-36.0); MEAN CELL VOLUME 88.5 fl (80-96); MEAN PLT VOLUME 7.7 fl (7.5-11.1); MONO % 6.9 % (3.8-10.2); PLATELET COUNT 227 10^3/uL (134-434); RBC 4.08 M/mm3 (3.60-5.2); RDW 18.4 % (11.6-15.6); WHITE BLOOD COUNT 6.5 K/mm3 (4.0-10.0)
[2022-04-04 09:21] LABS: CALCIUM 8.7 mg/dL (8.5-10.1)
[2022-04-04 09:22] LABS: ALBUMIN 2.7 g/dl (3.4-5.0); BLOOD UREA NITROGEN 28.8 mg/dL (7-18); MAGNESIUM 2.3 mg/dL (1.8-2.4)
[2022-04-04 09:25] LABS: CREATININE 0.6 mg/dL (0.55-1.3); PHOSPHOROUS 3.6 mg/dL (2.5-4.9)
[2022-04-04 09:26] LABS: BILIRUBIN,TOTAL 0.4 mg/dL (0.2-1)
[2022-04-04 09:27] LABS: TOT PROT 5.8 g/dl (6.4-8.2)
[2022-04-04] MEDS ORDERED: guaiFENesin/CODEINE 5 ML UNIT-DOSE CUPS PO PRN (10:00)
[2022-04-04] MEDS: ENOXAPARIN NA (PORCINE) 40 MG/0.4 ML DISP.SYRIN SQ SCH (10:13)
[2022-04-04] MEDS: LISINOPRIL 20 MG TABLET PO SCH ×2 (10:13→21:55)
[2022-04-04] MEDS: METOPROLOL TARTRATE 50 MG TABLET (FP) PO SCH ×2 (10:13→21:58)
[2022-04-04] MEDS: FUROSEMIDE 40 MG TABLET (FP) PO SCH (10:13)
[2022-04-04] MEDS: AMIODARONE HCL 200 MG TABLET PO SCH (10:13)
[2022-04-04] MEDS: ASPIRIN 81 MG CHEWABLE TABLETS PO SCH (10:13)
[2022-04-04] MEDS: FOLIC ACID 1 MG TABLET (FP) PO SCH (10:13)
[2022-04-04] MEDS: DEXAMETHASONE SOD PHOSPHATE 10 MG/1 ML VIAL IVPUSH SCH (10:14)
[2022-04-04] MEDS: REMDESIVIR 100 MG in SODIUM CHLORIDE 250 ML IVPB SCH (15:22)
[2022-04-04] MEDS: ATORVASTATIN CA 10 MG TABLET (FP) PO SCH (21:50)
[2022-04-04] MEDS: guaiFENesin/CODEINE 10 ML UNIT-DOSE CUPS PO SCH (21:59)
[2022-04-05] MEDS: POLYETHYLENE GLYCOL (HEALTHYLAX) 3350 17 GM PACKET PO SCH ×3 (06:37→21:53)
[2022-04-05] MEDS: dilTIAZem HCL 30 MG TABLET PO SCH ×2 (06:37→12:37)
[2022-04-05 09:32] LABS: ALBUMIN 2.7 g/dl (3.4-5.0); BILIRUBIN,TOTAL 0.5 mg/dL (0.2-1); BLOOD UREA NITROGEN 28.9 mg/dL (7-18); CALCIUM 8.5 mg/dL (8.5-10.1); CREATININE 0.7 mg/dL (0.55-1.3); MAGNESIUM 2.2 mg/dL (1.8-2.4); TOT PROT 5.6 g/dl (6.4-8.2)
[2022-04-05] MEDS: AMIODARONE HCL 200 MG TABLET PO SCH (10:58)
[2022-04-05] MEDS: METOPROLOL TARTRATE 50 MG TABLET (FP) PO SCH (10:58)
[2022-04-05] MEDS: ENOXAPARIN NA (PORCINE) 40 MG/0.4 ML DISP.SYRIN SQ SCH (10:59)
[2022-04-05] MEDS: DEXAMETHASONE SOD PHOSPHATE 10 MG/1 ML VIAL IVPUSH SCH (10:59)
[2022-04-05] MEDS: LISINOPRIL 20 MG TABLET PO SCH ×2 (10:59→21:53)
[2022-04-05] MEDS: FOLIC ACID 1 MG TABLET (FP) PO SCH (10:59)
[2022-04-05] MEDS: FUROSEMIDE 40 MG TABLET (FP) PO SCH (10:59)
[2022-04-05] MEDS: ASPIRIN 81 MG CHEWABLE TABLETS PO SCH (10:59)
[2022-04-05] MEDS ORDERED: AMIODARONE HCL 200 MG TABLET PO SCH (12:45)
[2022-04-05] MEDS: ATORVASTATIN CA 10 MG TABLET (FP) PO SCH (21:53)
[2022-04-05] MEDS: guaiFENesin/CODEINE 10 ML UNIT-DOSE CUPS PO SCH (21:53)
[2022-04-06] MEDS: POLYETHYLENE GLYCOL (HEALTHYLAX) 3350 17 GM PACKET PO SCH ×2 (06:25→14:57)
[2022-04-06 08:12] LABS: BASO % 0.1 % (0-2.0); HEMATOCRIT 35.8 % (32.4-45.2); HEMOGLOBIN 11.6 GM/dL (10.7-15.3); LYMPH % 7.5 % (8-40); MCH 28.4 pg (25.7-33.7); MCHC 32.5 g/dl (32.0-36.0); MEAN CELL VOLUME 87.3 fl (80-96); MEAN PLT VOLUME 7.9 fl (7.5-11.1); MONO % 9.3 % (3.8-10.2); NEUT % 83.1 % (42.8-82.8); PLATELET COUNT 262 10^3/uL (134-434); RBC 4.09 M/mm3 (3.60-5.2); RDW 18.7 % (11.6-15.6); WHITE BLOOD COUNT 7.9 K/mm3 (4.0-10.0)
[2022-04-06 08:18] LABS: CALCIUM 8.1 mg/dL (8.5-10.1)
[2022-04-06 08:19] LABS: ALBUMIN 2.7 g/dl (3.4-5.0); BLOOD UREA NITROGEN 33.3 mg/dL (7-18); MAGNESIUM 2.3 mg/dL (1.8-2.4)
[2022-04-06 08:22] LABS: CREATININE 0.8 mg/dL (0.55-1.3); PHOSPHOROUS 2.7 mg/dL (2.5-4.9)
[2022-04-06 08:23] LABS: BILIRUBIN,TOTAL 0.5 mg/dL (0.2-1); TOT PROT 5.6 g/dl (6.4-8.2)
[2022-04-06] MEDS: LISINOPRIL 20 MG TABLET PO SCH (09:21)
[2022-04-06] MEDS: ENOXAPARIN NA (PORCINE) 40 MG/0.4 ML DISP.SYRIN SQ SCH (09:21)
[2022-04-06] MEDS: FUROSEMIDE 40 MG TABLET (FP) PO SCH (09:21)
[2022-04-06] MEDS: DEXAMETHASONE SOD PHOSPHATE 10 MG/1 ML VIAL IVPUSH SCH (09:21)
[2022-04-06] MEDS: FOLIC ACID 1 MG TABLET (FP) PO SCH (09:21)
[2022-04-06] MEDS: ASPIRIN 81 MG CHEWABLE TABLETS PO SCH (09:21)
[2022-04-06] MEDS ORDERED: AMIODARONE HCL 200 MG TABLET PO SCH (10:00)
[2022-04-06 10:59] VITALS: RESP 18
[2022-04-06 13:59] VITALS: BP 147/70; PULSE 54; TEMP 98.6
== END 2022-04-06 14:58 | disposition home or self-care (01) | DRG 291 ==
LOC: JER 11:22 → JERBED 14:04 → J4W 03-26 21:39 → J4S 03-28 00:20
PROVIDERS: ADMIT Internal Medicine; ATTEND Internal Medicine
PROC: XW033E5 Introduction of Remdesivir Anti-infective into Peripheral Vein, Percutaneous Approach, New Technology Group 5 (ICD-10-PCS; principal; 2022-03-31)
PROC: 3E0333Z Introduction of Anti-inflammatory into Peripheral Vein, Percutaneous Approach (ICD-10-PCS; 2022-04-01)
DX: I11.0 Hypertensive heart disease with heart failure (principal); I50.33 Acute on chronic diastolic (congestive) heart failure; U07.1 COVID-19; I47.20 Ventricular tachycardia, unspecified; N39.0 Urinary tract infection, site not specified; E78.5 Hyperlipidemia, unspecified; M06.9 Rheumatoid arthritis, unspecified; I48.0 Paroxysmal atrial fibrillation; I08.1 Rheumatic disorders of both mitral and tricuspid valves; I25.119 Atherosclerotic heart disease of native coronary artery with unspecified angina pectoris; I27.20 Pulmonary hypertension, unspecified
CPT/HCPCS: 0241U-QW; 36415; 71045-TC-FY; 71250-TC; 80048; 80053; 80076; 81003; 83735; 83880; 84100; 84439; 84443; 84484; 85025; 85027; 85610; 87040; 87070; 87081; 87086; 87186; 93005; 93010; 94761; 97116-GP; 97161-GP; 99285-25; C9399; C9803-CS; G0008; J1100; J8610; Q2036; U0003; U0005

== ENCOUNTER 2022-04-08 12:02 | Observation (INO) | payer BC ==
[2022-04-08] MEDS ORDERED: LACTATED RINGERS SOLUTION 1000 ML INFUS.BAG IV ONE ×2 (13:05→14:43)
[2022-04-08 13:33] LABS: VENOUS BASE EXCESS 3.5 mmol/L (-2-2); VENOUS O2 SATURATION 34.2 % (70-80); VENOUS PCO2 39.6 mmHg (38-52); VENOUS PH 7.459 (7.310-7.410)
[2022-04-08 13:38] LABS: BASO % 0.4 % (0-2.0); EOS % 1.1 % (0-4.5); HEMATOCRIT 44.5 % (32.4-45.2); HEMOGLOBIN 13.8 GM/dL (10.7-15.3); LYMPH % 5.8 % (8-40); MCH 27.6 pg (25.7-33.7); MCHC 30.9 g/dl (32.0-36.0); MEAN CELL VOLUME 89.2 fl (80-96); MEAN PLT VOLUME 8.4 fl (7.5-11.1); MONO % 9.5 % (3.8-10.2); NEUT % 83.2 % (42.8-82.8); PLATELET COUNT 355 10^3/uL (134-434); RBC 4.99 M/mm3 (3.60-5.2); RDW 20.1 % (11.6-15.6)
[2022-04-08] MEDS ORDERED: ACETAMINOPHEN 1000 MG/100 ML BAG IVPB ONE (13:38)
[2022-04-08 13:45] LABS: INR 1.06 (0.83-1.09); PROTHROMBIN TIME (PATIENT) 12.2 SEC (9.7-13.0)
[2022-04-08 13:47] LABS: ACTIVATED PTT 30.6 SECONDS (25.2-36.5)
[2022-04-08 14:13] LABS: BLOOD UREA NITROGEN 40.8 mg/dL (7-18); CALCIUM 9.1 mg/dL (8.5-10.1)
[2022-04-08 14:18] LABS: BILIRUBIN,TOTAL 0.6 mg/dL (0.2-1); TOT PROT 6.2 g/dl (6.4-8.2)
[2022-04-08 14:19] LABS: EPI CELLS >36 /uL (0-25.1); HYALINE CASTS 2 /uL (0-3.1); URINE APPEARANCE CLOUDY; URINE BACTERIA 19 /uL (0-1359); URINE BILIRUBIN NEGATIVE (NEGATIVE); URINE COLOR YELLOW; URINE GLUCOSE (UA) NEGATIVE (NEGATIVE); URINE KETONE NEGATIVE (NEGATIVE); URINE LEUK ESTERASE 1+ (NEGATIVE); URINE NITRITE NEGATIVE (NEGATIVE); URINE PROTEIN 2+ (NEGATIVE); URINE RBC 37 /uL (0-23.9); URINE WBC 32 /uL (0-25.8)
[2022-04-08 14:23] LABS: YEAST NEGATIVE (NEGATIVE)
[2022-04-08 14:26] LABS: ALBUMIN 3.3 g/dl (3.4-5.0)
[2022-04-08 14:38] LABS: MAGNESIUM 2.5 mg/dL (1.8-2.4)
[2022-04-08] MEDS ORDERED: ACETAMINOPHEN INJECTION 100 ML IVPB ONE (15:18)
[2022-04-08 17:10] LABS: PH,URINE 5.5 (5.0-8.0); URINE APPEARANCE CLOUDY; URINE BILIRUBIN NEGATIVE (NEGATIVE); URINE COLOR YELLOW; URINE GLUCOSE (UA) NEGATIVE (NEGATIVE); URINE KETONE NEGATIVE (NEGATIVE); URINE LEUK ESTERASE NEGATIVE (NEGATIVE); URINE NITRITE NEGATIVE (NEGATIVE); URINE PROTEIN TRACE (NEGATIVE)
[2022-04-08] MEDS ORDERED: ENOXAPARIN NA (PORCINE) 40 MG/0.4 ML DISP.SYRIN SQ ONE (22:40)
[2022-04-08] MEDS ORDERED: ATORVASTATIN CA 10 MG TABLET (FP) ONE ×2 (22:40→23:40)
[2022-04-08] MEDS ORDERED: LISINOPRIL 20 MG TABLET ONE (22:40)
[2022-04-08] MEDS: ENOXAPARIN NA (PORCINE) 40 MG/0.4 ML DISP.SYRIN SQ SCH (22:42)
[2022-04-08 23:01] LABS: BASO % 0.2 % (0-2.0); EOS % 1.7 % (0-4.5); HEMATOCRIT 35.5 % (32.4-45.2); HEMOGLOBIN 11.2 GM/dL (10.7-15.3); LYMPH % 10.7 % (8-40); MCHC 31.5 g/dl (32.0-36.0); MEAN PLT VOLUME 7.6 fl (7.5-11.1); MONO % 11.8 % (3.8-10.2); NEUT % 75.6 % (42.8-82.8); PLATELET COUNT 280 10^3/uL (134-434); RBC 3.99 M/mm3 (3.60-5.2); RDW 20.3 % (11.6-15.6); WHITE BLOOD COUNT 8.5 K/mm3 (4.0-10.0)
[2022-04-08] MEDS: LISINOPRIL 20 MG TABLET PO SCH (23:34)
[2022-04-08] MEDS: ATORVASTATIN CA 10 MG TABLET (FP) PO SCH (23:44)
[2022-04-09 06:38] VITALS: BMI 25.0
[2022-04-09 07:59] LABS: BASO % 0.1 % (0-2.0); EOS % 3.2 % (0-4.5); HEMATOCRIT 34.7 % (32.4-45.2); HEMOGLOBIN 11.1 GM/dL (10.7-15.3); LYMPH % 11.4 % (8-40); MCH 28.6 pg (25.7-33.7); MEAN CELL VOLUME 89.2 fl (80-96); MONO % 10.9 % (3.8-10.2); NEUT % 74.4 % (42.8-82.8); PLATELET COUNT 268 10^3/uL (134-434); WHITE BLOOD COUNT 7.9 K/mm3 (4.0-10.0)
[2022-04-09 08:13] LABS: CALCIUM 7.9 mg/dL (8.5-10.1); MAGNESIUM 2.3 mg/dL (1.8-2.4)
[2022-04-09 08:14] LABS: BLOOD UREA NITROGEN 33.9 mg/dL (7-18)
[2022-04-09 08:16] LABS: CREATININE 0.8 mg/dL (0.55-1.3); PHOSPHOROUS 3.1 mg/dL (2.5-4.9)
[2022-04-09 08:17] LABS: TOT PROT 4.9 g/dl (6.4-8.2)
[2022-04-09 08:18] LABS: BILIRUBIN,TOTAL 0.5 mg/dL (0.2-1)
[2022-04-09 08:32] LABS: ALBUMIN 2.5 g/dl (3.4-5.0)
[2022-04-09] MEDS ORDERED: ASPIRIN COATED 81 MG TABLET.EC PO SCH (10:00)
[2022-04-09] MEDS: AMIODARONE HCL 200 MG TABLET PO SCH (10:36)
[2022-04-09] MEDS: LISINOPRIL 20 MG TABLET PO SCH ×2 (10:36→22:18)
[2022-04-09] MEDS: ENOXAPARIN NA (PORCINE) 40 MG/0.4 ML DISP.SYRIN SQ SCH (10:36)
[2022-04-09] MEDS: FUROSEMIDE 40 MG TABLET (FP) PO SCH (10:36)
[2022-04-09 18:31] LABS: BLOOD UREA NITROGEN 32.2 mg/dL (7-18); CALCIUM 8.2 mg/dL (8.5-10.1)
[2022-04-09 18:32] LABS: ALBUMIN 2.8 g/dl (3.4-5.0); MAGNESIUM 2.5 mg/dL (1.8-2.4)
[2022-04-09] MEDS: RIVAROXABAN 20 MG TABLET PO SCH (18:34)
[2022-04-09 18:35] LABS: CREATININE 0.9 mg/dL (0.55-1.3)
[2022-04-09 18:36] LABS: BILIRUBIN,TOTAL 0.4 mg/dL (0.2-1); TOT PROT 5.4 g/dl (6.4-8.2)
[2022-04-09] MEDS: ATORVASTATIN CA 10 MG TABLET (FP) PO SCH (22:17)
[2022-04-10 08:28] LABS: BASO % 0.1 % (0-2.0); EOS % 2.4 % (0-4.5); HEMATOCRIT 33.8 % (32.4-45.2); HEMOGLOBIN 10.8 GM/dL (10.7-15.3); LYMPH % 11.3 % (8-40); MCH 28.7 pg (25.7-33.7); MCHC 31.8 g/dl (32.0-36.0); MEAN CELL VOLUME 90.3 fl (80-96); MEAN PLT VOLUME 8.7 fl (7.5-11.1); MONO % 9.2 % (3.8-10.2); PLATELET COUNT 268 10^3/uL (134-434); RBC 3.75 M/mm3 (3.60-5.2); RDW 19.5 % (11.6-15.6); WHITE BLOOD COUNT 7.4 K/mm3 (4.0-10.0)
[2022-04-10] MEDS: FUROSEMIDE 40 MG TABLET (FP) PO SCH (09:18)
[2022-04-10] MEDS: LISINOPRIL 20 MG TABLET PO SCH ×2 (09:18→23:02)
[2022-04-10] MEDS: AMIODARONE HCL 200 MG TABLET PO SCH (09:19)
[2022-04-10] MEDS ORDERED: AMIODARONE HCL 200 MG TABLET PO SCH (16:18)
[2022-04-10] MEDS: RIVAROXABAN 20 MG TABLET PO SCH (17:15)
[2022-04-10] MEDS: POLYETHYLENE GLYCOL (HEALTHYLAX) 3350 17 GM PACKET PO SCH (23:01)
[2022-04-10] MEDS: ATORVASTATIN CA 10 MG TABLET (FP) PO SCH (23:01)
[2022-04-11 07:19] VITALS: RESP 18
[2022-04-11] MEDS: METHIMAZOLE 5 MG TABLET PO SCH ×2 (08:07→14:11)
[2022-04-11 08:39] LABS: CALCIUM 8.1 mg/dL (8.5-10.1)
[2022-04-11 08:40] LABS: BLOOD UREA NITROGEN 23.9 mg/dL (7-18)
[2022-04-11 08:43] LABS: CREATININE 0.8 mg/dL (0.55-1.3)
[2022-04-11 08:44] LABS: HEMATOCRIT 35.7 % (32.4-45.2); HEMOGLOBIN 11.4 GM/dL (10.7-15.3); MCH 28.8 pg (25.7-33.7); MCHC 31.9 g/dl (32.0-36.0); MEAN CELL VOLUME 90.2 fl (80-96); MEAN PLT VOLUME 7.9 fl (7.5-11.1); PLATELET COUNT 278 10^3/uL (134-434); RBC 3.95 M/mm3 (3.60-5.2); RDW 19.5 % (11.6-15.6)
[2022-04-11 09:05] VITALS: PULSE 58
[2022-04-11] MEDS: POLYETHYLENE GLYCOL (HEALTHYLAX) 3350 17 GM PACKET PO SCH (09:26)
[2022-04-11] MEDS: LISINOPRIL 20 MG TABLET PO SCH (09:26)
[2022-04-11] MEDS: FUROSEMIDE 40 MG TABLET (FP) PO SCH (09:26)
[2022-04-11] MEDS ORDERED: LISINOPRIL 10 MG TABLET PO SCH (12:55)
[2022-04-11 14:26] VITALS: BP 112/47; TEMP 99.2
[2022-04-11] MEDS: RIVAROXABAN 20 MG TABLET PO SCH (17:23)
[2022-04-14 16:07] LABS: THYROID STIM IMMUNOGLOBULIN <0.10 IU/L (0.00-0.55)
== END 2022-04-11 20:50 | disposition home or self-care (01) ==
LOC: JER 12:02 → JERBED 16:23 → UNDOADMOB 16:23 → INTOOBSV 17:17 → OBSVTOIN 17:17 → J4W 04-09 02:46 → JERBED 04-09 02:46 → J4W 04-09 13:36 → JERBED 04-09 13:36
PROVIDERS: ADMIT Internal Medicine; ATTEND Internal Medicine
PROC: 3E033NZ Introduction of Analgesics, Hypnotics, Sedatives into Peripheral Vein, Percutaneous Approach (ICD-10-PCS; principal; 2022-04-09)
PROC: 3E023GC Introduction of Other Therapeutic Substance into Muscle, Percutaneous Approach (ICD-10-PCS; 2022-04-09)
PROC: 3E0337Z Introduction of Electrolytic and Water Balance Substance into Peripheral Vein, Percutaneous Approach (ICD-10-PCS; 2022-04-09)
DX: I25.10 Atherosclerotic heart disease of native coronary artery without angina pectoris (principal); I48.91 Unspecified atrial fibrillation; M25.00 Hemarthrosis, unspecified joint; E86.0 Dehydration; E78.5 Hyperlipidemia, unspecified; I11.9 Hypertensive heart disease without heart failure; I11.0 Hypertensive heart disease with heart failure; I50.30 Unspecified diastolic (congestive) heart failure; M19.90 Unspecified osteoarthritis, unspecified site; U07.1 COVID-19; R09.02 Hypoxemia; D72.0 Genetic anomalies of leukocytes; R00.0 Tachycardia, unspecified; Z79.01 Long term (current) use of anticoagulants; Z88.1 Allergy status to other antibiotic agents
CPT/HCPCS: 0241U-QW; 36415; 70450-TC; 71045-TC-FY; 80048; 80053; 81003; 82803; 83735; 83880; 84100; 84439; 84443; 84445; 84481; 84484; 85025; 85027; 85610; 85730; 86850; 86900; 86901; 87040; 87086; 93005; 93010; 93925-TC; 96372; 96374; 99285-25; G0378

== ENCOUNTER 2022-04-21 09:08 | Inpatient (IN) | payer BC ==
[2022-04-21] MEDS ORDERED: SODIUM CHLORIDE 0.9% 500 ML INFUS.BAG IV ONE (10:31)
[2022-04-21] MEDS ORDERED: dilTIAZem HCL 30 MG TABLET PO ONE (10:31)
[2022-04-21] MEDS ORDERED: dilTIAZem HCL 30 MG TABLET ONE (10:52)
[2022-04-21 12:06] LABS: HEMATOCRIT 33.5 % (32.4-45.2); HEMOGLOBIN 10.5 GM/dL (10.7-15.3); MCH 28.4 pg (25.7-33.7); MCHC 31.4 g/dl (32.0-36.0); MEAN CELL VOLUME 90.6 fl (80-96); MEAN PLT VOLUME 7.4 fl (7.5-11.1); PLATELET COUNT 238 10^3/uL (134-434); RBC 3.69 M/mm3 (3.60-5.2); RDW 19.2 % (11.6-15.6); WHITE BLOOD COUNT 7.6 K/mm3 (4.0-10.0)
[2022-04-21 12:17] LABS: INR 2.44 (0.83-1.09); PROTHROMBIN TIME (PATIENT) 28.3 SEC (9.7-13.0)
[2022-04-21 12:20] LABS: ACTIVATED PTT 46.3 SECONDS (25.2-36.5)
[2022-04-21 12:39] LABS: ALBUMIN 2.7 g/dl (3.4-5.0); BLOOD UREA NITROGEN 24.2 mg/dL (7-18); CALCIUM 8.5 mg/dL (8.5-10.1); MAGNESIUM 2.2 mg/dL (1.8-2.4)
[2022-04-21 12:40] LABS: ANISOCYTOSIS 1+; MACROCYTOSIS 1+
[2022-04-21 12:42] LABS: CREATININE 0.8 mg/dL (0.55-1.3)
[2022-04-21 12:44] LABS: BILIRUBIN,TOTAL 0.8 mg/dL (0.2-1); TOT PROT 5.9 g/dl (6.4-8.2)
[2022-04-21 12:47] LABS: N-TERMINAL BNP 7224.2 pg/ml (5-450)
[2022-04-21 14:58] LABS: ANION GAP 10 MMOL/L (8-16); BLOOD UREA NITROGEN 24.3 mg/dL (7-18); CALCIUM 8.6 mg/dL (8.5-10.1); CHLORIDE 114 mmol/L (98-107); CO2 20 mmol/L (21-32); CREATININE 0.7 mg/dL (0.55-1.3); GLUCOSE,RANDOM 108 mg/dL (74-106); SODIUM 144 mmol/L (136-145)
[2022-04-21] MEDS ORDERED: ACETAMINOPHEN 325 MG TABLET (FP) PO ONE (17:41)
[2022-04-21] MEDS ORDERED: ACETAMINOPHEN 325 MG TABLET (FP) ONE (17:56)
[2022-04-21] MEDS ORDERED: dilTIAZem HCL 50 MG/10 ML - 10 ML VIAL IVPUSH ONE (20:27)
[2022-04-21] MEDS ORDERED: HEPARIN NA (PORCINE) 5,000 UNITS/ML 1ML VIAL IVPUSH PRN ×2 (21:30)
[2022-04-21] MEDS ORDERED: SOTALOL HCL 80 MG TABLET (FP) PO SCH (22:00)
[2022-04-21] MEDS: HEPARIN INFUSION - 25,000 UNITS/500 ML INFUS.BAG IVPB SCH (23:12)
[2022-04-22 00:41] VITALS: BMI 25.9
[2022-04-22] MEDS: HEPARIN INFUSION - 25,000 UNITS/500 ML INFUS.BAG IVPB SCH ×2 (07:00→21:38)
[2022-04-22] MEDS ORDERED: metoPROLOL SUCCINATE 25 MG TAB.SR.24H (FP) PO SCH (10:00)
[2022-04-22] MEDS: METHIMAZOLE 5 MG TABLET PO SCH ×2 (15:00→21:39)
[2022-04-22] MEDS ORDERED: metoPROLOL SUCCINATE 25 MG TAB.SR.24H (FP) PO ONE (18:00)
[2022-04-23] MEDS: METHIMAZOLE 5 MG TABLET PO SCH ×3 (05:40→21:47)
[2022-04-23] MEDS: FUROSEMIDE 40 MG TABLET (FP) PO SCH (09:51)
[2022-04-23] MEDS: LISINOPRIL 10 MG TABLET PO SCH ×2 (09:51→21:47)
[2022-04-23 10:11] LABS: CALCIUM 8.5 mg/dL (8.5-10.1)
[2022-04-23 10:12] LABS: ALBUMIN 2.7 g/dl (3.4-5.0); BLOOD UREA NITROGEN 13.5 mg/dL (7-18)
[2022-04-23 10:15] LABS: CREATININE 0.6 mg/dL (0.55-1.3)
[2022-04-23 10:17] LABS: BILIRUBIN,TOTAL 0.4 mg/dL (0.2-1); TOT PROT 5.7 g/dl (6.4-8.2)
[2022-04-23] MEDS: RIVAROXABAN 20 MG TABLET PO SCH (18:02)
[2022-04-24] MEDS: METHIMAZOLE 5 MG TABLET PO SCH ×3 (06:09→21:36)
[2022-04-24 08:14] LABS: PH,URINE 6.5 (5.0-8.0); URINE APPEARANCE CLEAR; URINE BILIRUBIN NEGATIVE (NEGATIVE); URINE COLOR YELLOW; URINE GLUCOSE (UA) NEGATIVE (NEGATIVE); URINE KETONE NEGATIVE (NEGATIVE); URINE LEUK ESTERASE NEGATIVE (NEGATIVE); URINE NITRITE NEGATIVE (NEGATIVE); URINE PROTEIN TRACE (NEGATIVE)
[2022-04-24 08:25] LABS: BASO % 0.4 % (0-2.0); EOS % 4.5 % (0-4.5); HEMATOCRIT 31.9 % (32.4-45.2); HEMOGLOBIN 10.4 GM/dL (10.7-15.3); LYMPH % 12.9 % (8-40); MCHC 32.5 g/dl (32.0-36.0); MEAN PLT VOLUME 7.4 fl (7.5-11.1); MONO % 8.7 % (3.8-10.2); NEUT % 73.5 % (42.8-82.8); PLATELET COUNT 262 10^3/uL (134-434); RBC 3.58 M/mm3 (3.60-5.2); RDW 18.9 % (11.6-15.6); WHITE BLOOD COUNT 4.9 K/mm3 (4.0-10.0)
[2022-04-24 09:02] LABS: ALBUMIN 2.4 g/dl (3.4-5.0); BLOOD UREA NITROGEN 12.4 mg/dL (7-18); CALCIUM 8.3 mg/dL (8.5-10.1)
[2022-04-24 09:03] LABS: MAGNESIUM 1.9 mg/dL (1.8-2.4)
[2022-04-24 09:05] LABS: CREATININE 0.6 mg/dL (0.55-1.3); PHOSPHOROUS 2.7 mg/dL (2.5-4.9)
[2022-04-24 09:06] LABS: BILIRUBIN,TOTAL 0.4 mg/dL (0.2-1); TOT PROT 5.3 g/dl (6.4-8.2)
[2022-04-24] MEDS: POLYETHYLENE GLYCOL (HEALTHYLAX) 3350 17 GM PACKET PO SCH ×2 (09:56→21:36)
[2022-04-24] MEDS: LISINOPRIL 10 MG TABLET PO SCH ×2 (10:00→21:36)
[2022-04-24] MEDS: FUROSEMIDE 40 MG TABLET (FP) PO SCH (10:00)
[2022-04-24] MEDS: RIVAROXABAN 20 MG TABLET PO SCH (17:21)
[2022-04-25] MEDS: METHIMAZOLE 5 MG TABLET PO SCH ×3 (06:26→21:18)
[2022-04-25 07:58] LABS: BASO % 0.4 % (0-2.0); EOS % 5.6 % (0-4.5); HEMOGLOBIN 10.9 GM/dL (10.7-15.3); LYMPH % 12.4 % (8-40); MCH 28.8 pg (25.7-33.7); MCHC 32.2 g/dl (32.0-36.0); MEAN CELL VOLUME 89.4 fl (80-96); MEAN PLT VOLUME 7.4 fl (7.5-11.1); MONO % 8.8 % (3.8-10.2); NEUT % 72.8 % (42.8-82.8); PLATELET COUNT 272 10^3/uL (134-434); RDW 18.9 % (11.6-15.6); WHITE BLOOD COUNT 4.8 K/mm3 (4.0-10.0)
[2022-04-25 08:15] LABS: CALCIUM 8.4 mg/dL (8.5-10.1)
[2022-04-25 08:16] LABS: ALBUMIN 2.6 g/dl (3.4-5.0); BLOOD UREA NITROGEN 13.5 mg/dL (7-18)
[2022-04-25 08:18] LABS: CREATININE 0.6 mg/dL (0.55-1.3)
[2022-04-25 08:20] LABS: BILIRUBIN,TOTAL 0.3 mg/dL (0.2-1); TOT PROT 5.6 g/dl (6.4-8.2)
[2022-04-25] MEDS: POLYETHYLENE GLYCOL (HEALTHYLAX) 3350 17 GM PACKET PO SCH ×2 (09:11→21:18)
[2022-04-25] MEDS: LISINOPRIL 10 MG TABLET PO SCH ×2 (10:22→21:18)
[2022-04-25] MEDS: FUROSEMIDE 40 MG TABLET (FP) PO SCH (10:22)
[2022-04-25] MEDS: RIVAROXABAN 20 MG TABLET PO SCH (17:29)
[2022-04-26] MEDS: METHIMAZOLE 5 MG TABLET PO SCH ×3 (06:00→22:09)
[2022-04-26 08:03] LABS: BASO % 0.7 % (0-2.0); EOS % 6.4 % (0-4.5); HEMOGLOBIN 11.4 GM/dL (10.7-15.3); MCH 28.1 pg (25.7-33.7); MCHC 31.8 g/dl (32.0-36.0); MEAN CELL VOLUME 88.5 fl (80-96); MEAN PLT VOLUME 7.7 fl (7.5-11.1); MONO % 8.6 % (3.8-10.2); NEUT % 69.3 % (42.8-82.8); PLATELET COUNT 309 10^3/uL (134-434); RBC 4.07 M/mm3 (3.60-5.2); RDW 19.1 % (11.6-15.6); WHITE BLOOD COUNT 5.1 K/mm3 (4.0-10.0)
[2022-04-26 08:30] LABS: ALBUMIN 2.8 g/dl (3.4-5.0); BLOOD UREA NITROGEN 15.2 mg/dL (7-18); CALCIUM 8.8 mg/dL (8.5-10.1)
[2022-04-26 08:33] LABS: CREATININE 0.7 mg/dL (0.55-1.3); PHOSPHOROUS 3.3 mg/dL (2.5-4.9)
[2022-04-26 08:34] LABS: BILIRUBIN,TOTAL 0.4 mg/dL (0.2-1); TOT PROT 5.8 g/dl (6.4-8.2)
[2022-04-26] MEDS: LISINOPRIL 10 MG TABLET PO SCH ×2 (10:08→21:34)
[2022-04-26] MEDS: FUROSEMIDE 40 MG TABLET (FP) PO SCH (10:08)
[2022-04-26] MEDS: POLYETHYLENE GLYCOL (HEALTHYLAX) 3350 17 GM PACKET PO SCH ×2 (10:09→21:35)
[2022-04-26] MEDS: RIVAROXABAN 20 MG TABLET PO SCH (17:20)
[2022-04-27] MEDS: METHIMAZOLE 5 MG TABLET PO SCH ×3 (05:34→22:57)
[2022-04-27 07:45] LABS: BASO % 0.5 % (0-2.0); HEMATOCRIT 32.8 % (32.4-45.2); HEMOGLOBIN 10.9 GM/dL (10.7-15.3); LYMPH % 14.2 % (8-40); MCH 29.3 pg (25.7-33.7); MCHC 33.1 g/dl (32.0-36.0); MEAN CELL VOLUME 88.3 fl (80-96); MEAN PLT VOLUME 7.2 fl (7.5-11.1); MONO % 11.1 % (3.8-10.2); NEUT % 68.2 % (42.8-82.8); PLATELET COUNT 298 10^3/uL (134-434); RBC 3.71 M/mm3 (3.60-5.2); RDW 19.6 % (11.6-15.6); WHITE BLOOD COUNT 5.5 K/mm3 (4.0-10.0)
[2022-04-27 08:05] LABS: ALBUMIN 2.5 g/dl (3.4-5.0); BLOOD UREA NITROGEN 16.8 mg/dL (7-18); CALCIUM 8.4 mg/dL (8.5-10.1); MAGNESIUM 2.1 mg/dL (1.8-2.4)
[2022-04-27 08:08] LABS: CREATININE 0.7 mg/dL (0.55-1.3)
[2022-04-27 08:10] LABS: BILIRUBIN,TOTAL 0.4 mg/dL (0.2-1); TOT PROT 5.6 g/dl (6.4-8.2)
[2022-04-27] MEDS: FUROSEMIDE 40 MG TABLET (FP) PO SCH (10:27)
[2022-04-27] MEDS: POLYETHYLENE GLYCOL (HEALTHYLAX) 3350 17 GM PACKET PO SCH ×2 (10:27→22:57)
[2022-04-27] MEDS: LISINOPRIL 10 MG TABLET PO SCH ×2 (10:27→22:55)
[2022-04-27 11:34] VITALS: RESP 18
[2022-04-27] MEDS: PETROLATUM, WHITE 30 GM TUBE TP SCH (13:23)
[2022-04-27] MEDS: RIVAROXABAN 20 MG TABLET PO SCH (17:26)
[2022-04-28] MEDS: METHIMAZOLE 5 MG TABLET PO SCH ×2 (06:14→14:20)
[2022-04-28 06:47] VITALS: TEMP 98.7
[2022-04-28 07:34] LABS: HEMOGLOBIN 11.3 GM/dL (10.7-15.3); MCH 28.3 pg (25.7-33.7); MCHC 32.3 g/dl (32.0-36.0); MEAN CELL VOLUME 87.7 fl (80-96); MEAN PLT VOLUME 7.6 fl (7.5-11.1); PLATELET COUNT 340 10^3/uL (134-434); RDW 19.2 % (11.6-15.6); WHITE BLOOD COUNT 5.2 K/mm3 (4.0-10.0)
[2022-04-28 07:52] LABS: ALBUMIN 2.6 g/dl (3.4-5.0)
[2022-04-28 07:53] LABS: CALCIUM 8.9 mg/dL (8.5-10.1)
[2022-04-28 07:54] LABS: MAGNESIUM 2.3 mg/dL (1.8-2.4); PHOSPHOROUS 3.6 mg/dL (2.5-4.9)
[2022-04-28 07:55] LABS: CREATININE 0.7 mg/dL (0.55-1.3)
[2022-04-28 07:56] LABS: BILIRUBIN,TOTAL 0.3 mg/dL (0.2-1); TOT PROT 5.7 g/dl (6.4-8.2)
[2022-04-28] MEDS: POTASSIUM CHLORIDE TABS 20 MEQ TABLET.ER (FP) PO SCH ×2 (10:29→10:46)
[2022-04-28] MEDS: POLYETHYLENE GLYCOL (HEALTHYLAX) 3350 17 GM PACKET PO SCH (10:39)
[2022-04-28] MEDS: FUROSEMIDE 40 MG TABLET (FP) PO SCH (10:46)
[2022-04-28] MEDS: LISINOPRIL 10 MG TABLET PO SCH (10:46)
[2022-04-28] MEDS: PETROLATUM, WHITE 30 GM TUBE TP SCH (10:46)
[2022-04-28 14:31] VITALS: BP 127/77; PULSE 66
== END 2022-04-28 15:12 | disposition home or self-care (01) | DRG 308 ==
LOC: JER 09:08 → INTOOBSV 11:44 → JERBED 11:44 → UNDOADMOB 11:44 → JERBED 15:33 → J4W 21:57 → OBSVTOIN 04-22 09:20
PROVIDERS: ADMIT Internal Medicine; ATTEND Internal Medicine
DX: I48.0 Paroxysmal atrial fibrillation (principal); I50.43 Acute on chronic combined systolic (congestive) and diastolic (congestive) heart failure; U07.1 COVID-19; M33.13 Other dermatomyositis without myopathy; E78.5 Hyperlipidemia, unspecified; M06.9 Rheumatoid arthritis, unspecified; E05.80 Other thyrotoxicosis without thyrotoxic crisis or storm; T46.2X5A Adverse effect of other antidysrhythmic drugs, initial encounter; I11.0 Hypertensive heart disease with heart failure; I27.20 Pulmonary hypertension, unspecified; R77.8 Other specified abnormalities of plasma proteins; R04.0 Epistaxis; I25.119 Atherosclerotic heart disease of native coronary artery with unspecified angina pectoris; I47.20 Ventricular tachycardia, unspecified; E87.6 Hypokalemia
CPT/HCPCS: 36415; 71045-TC-FY; 80048; 80053; 81003; 83735; 83880; 84100; 84439; 84443; 84484; 85025; 85027; 85610; 85730; 86140; 86850; 86900; 86901; 87086; 87186; 93005; 93010; 97162-GP; 99285-25; C9803-CS; G0378; J1644; U0003; U0005

== ENCOUNTER 2022-05-05 09:56 | Inpatient (IN) | payer BC ==
[2022-05-05 11:33] LABS: WHITE BLOOD COUNT 9.1 K/mm3 (4.0-10.0)
[2022-05-05 11:34] LABS: BASO % 0.3 % (0-2.0); EOS % 0.1 % (0-4.5); HEMATOCRIT 34.4 % (32.4-45.2); MCHC 32.1 g/dl (32.0-36.0); MEAN CELL VOLUME 87.1 fl (80-96); MEAN PLT VOLUME 7.2 fl (7.5-11.1); MONO % 5.5 % (3.8-10.2); NEUT % 88.1 % (42.8-82.8); PLATELET COUNT 527 10^3/uL (134-434); RBC 3.95 M/mm3 (3.60-5.2); RDW 19.6 % (11.6-15.6)
[2022-05-05 11:38] LABS: INR 1.42 (0.83-1.09); PROTHROMBIN TIME (PATIENT) 16.4 SEC (9.7-13.0)
[2022-05-05 12:01] LABS: ALBUMIN 3.1 g/dl (3.4-5.0); BLOOD UREA NITROGEN 16.4 mg/dL (7-18); CALCIUM 9.2 mg/dL (8.5-10.1); MAGNESIUM 2.3 mg/dL (1.8-2.4)
[2022-05-05 12:05] LABS: CREATININE 0.9 mg/dL (0.55-1.3)
[2022-05-05 12:06] LABS: TOT PROT 6.6 g/dl (6.4-8.2)
[2022-05-05 12:07] LABS: BILIRUBIN,TOTAL 0.5 mg/dL (0.2-1)
[2022-05-05 12:10] LABS: N-TERMINAL BNP 3539.2 pg/ml (5-450)
[2022-05-05] MEDS ORDERED: dilTIAZem HCL 50 MG/10 ML - 10 ML VIAL IVPUSH ONE (18:32)
[2022-05-05] MEDS ORDERED: dilTIAZem HCL 50 MG/10 ML - 10 ML VIAL ONE (18:36)
[2022-05-06] MEDS ORDERED: dilTIAZem HCL 50 MG/10 ML - 10 ML VIAL IVPUSH ONE (02:18)
[2022-05-06 02:40] VITALS: BMI 26.3
[2022-05-06] MEDS: METHIMAZOLE 5 MG TABLET PO SCH ×3 (06:42→21:18)
[2022-05-06 07:30] LABS: BASO % 0.6 % (0-2.0); EOS % 0.8 % (0-4.5); MCH 27.8 pg (25.7-33.7); MCHC 32.2 g/dl (32.0-36.0); MEAN CELL VOLUME 86.5 fl (80-96); MEAN PLT VOLUME 7.5 fl (7.5-11.1); MONO % 8.6 % (3.8-10.2); PLATELET COUNT 482 10^3/uL (134-434); RBC 3.58 M/mm3 (3.60-5.2); RDW 19.8 % (11.6-15.6); WHITE BLOOD COUNT 6.7 K/mm3 (4.0-10.0)
[2022-05-06 09:21] LABS: CALCIUM 8.9 mg/dL (8.5-10.1)
[2022-05-06 09:22] LABS: ALBUMIN 2.8 g/dl (3.4-5.0); BLOOD UREA NITROGEN 18.2 mg/dL (7-18); MAGNESIUM 2.2 mg/dL (1.8-2.4)
[2022-05-06 09:24] LABS: CREATININE 0.9 mg/dL (0.55-1.3)
[2022-05-06 09:26] LABS: BILIRUBIN,TOTAL 0.4 mg/dL (0.2-1); PHOSPHOROUS 3.5 mg/dL (2.5-4.9); TOT PROT 5.8 g/dl (6.4-8.2)
[2022-05-06] MEDS: POLYETHYLENE GLYCOL (HEALTHYLAX) 3350 17 GM PACKET PO SCH ×2 (09:36→21:19)
[2022-05-06] MEDS: LISINOPRIL 10 MG TABLET PO SCH ×2 (09:36→21:18)
[2022-05-06] MEDS: FUROSEMIDE 40 MG TABLET (FP) PO SCH (09:36)
[2022-05-06] MEDS ORDERED: ENOXAPARIN NA (PORCINE) 40 MG/0.4 ML DISP.SYRIN SQ SCH (10:00)
[2022-05-06] MEDS ORDERED: DIGOXIN 0.5 MG/2 ML AMPUL IVPUSH ONE ×3 (11:06→23:08)
[2022-05-06] MEDS ORDERED: POTASSIUM CHLORIDE TABS 10 MEQ TABLET.ER (FP) PO ONE (12:40)
[2022-05-06 14:58] LABS: EPI CELLS 6 /uL (0-25.1); HYALINE CASTS 0 /uL (0-3.1); URINE APPEARANCE CLEAR; URINE BACTERIA >9,000 /uL (0-1359); URINE BILIRUBIN NEGATIVE (NEGATIVE); URINE COLOR YELLOW; URINE GLUCOSE (UA) NEGATIVE (NEGATIVE); URINE KETONE NEGATIVE (NEGATIVE); URINE LEUK ESTERASE TRACE (NEGATIVE); URINE NITRITE NEGATIVE (NEGATIVE); URINE PROTEIN NEGATIVE (NEGATIVE); URINE RBC 17 /uL (0-23.9); URINE UROBILINOGEN 0.2 mg/dL (0.2-1.0); URINE WBC 32 /uL (0-25.8)
[2022-05-06] MEDS: RIVAROXABAN 15 MG TABLET PO SCH (17:12)
[2022-05-07] MEDS ORDERED: DIGOXIN 0.5 MG/2 ML AMPUL ONE (02:51)
[2022-05-07 03:30] VITALS: RESP 20
[2022-05-07] MEDS: DIGOXIN 0.125 MG TABLET PO SCH ×2 (06:16→09:43)
[2022-05-07] MEDS: METHIMAZOLE 5 MG TABLET PO SCH ×3 (06:25→21:23)
[2022-05-07 08:33] LABS: HEMATOCRIT 33.1 % (32.4-45.2); HEMOGLOBIN 10.5 GM/dL (10.7-15.3); MCH 27.6 pg (25.7-33.7); MCHC 31.9 g/dl (32.0-36.0); MEAN CELL VOLUME 86.6 fl (80-96); MEAN PLT VOLUME 7.5 fl (7.5-11.1); PLATELET COUNT 497 10^3/uL (134-434); RBC 3.82 M/mm3 (3.60-5.2); RDW 19.3 % (11.6-15.6); WHITE BLOOD COUNT 8.1 K/mm3 (4.0-10.0)
[2022-05-07 08:44] LABS: ALBUMIN 2.8 g/dl (3.4-5.0); BLOOD UREA NITROGEN 18.6 mg/dL (7-18); CALCIUM 8.4 mg/dL (8.5-10.1)
[2022-05-07 08:45] LABS: MAGNESIUM 1.9 mg/dL (1.8-2.4)
[2022-05-07 08:47] LABS: BILIRUBIN,TOTAL 0.4 mg/dL (0.2-1); CREATININE 0.8 mg/dL (0.55-1.3); PHOSPHOROUS 3.2 mg/dL (2.5-4.9); TOT PROT 5.9 g/dl (6.4-8.2)
[2022-05-07] MEDS: LISINOPRIL 10 MG TABLET PO SCH ×2 (09:43→21:23)
[2022-05-07] MEDS: POLYETHYLENE GLYCOL (HEALTHYLAX) 3350 17 GM PACKET PO SCH ×2 (09:43→21:23)
[2022-05-07] MEDS: FUROSEMIDE 40 MG TABLET (FP) PO SCH (09:44)
[2022-05-07] MEDS: RIVAROXABAN 15 MG TABLET PO SCH (17:08)
[2022-05-07 22:37] VITALS: BP 135/81; PULSE 108; TEMP 98.9
== END 2022-05-08 02:00 | disposition home health service (06) | DRG 308 ==
LOC: JER 09:56 → JERBED 20:23 → OBSVTOIN 23:34 → J4W 05-06 02:06
PROVIDERS: ADMIT Internal Medicine; ATTEND Internal Medicine
DX: I48.92 Unspecified atrial flutter (principal); U07.1 COVID-19; I50.42 Chronic combined systolic (congestive) and diastolic (congestive) heart failure; I25.10 Atherosclerotic heart disease of native coronary artery without angina pectoris; I11.0 Hypertensive heart disease with heart failure; E78.5 Hyperlipidemia, unspecified; Z79.01 Long term (current) use of anticoagulants; I48.0 Paroxysmal atrial fibrillation; E05.80 Other thyrotoxicosis without thyrotoxic crisis or storm; T46.2X5A Adverse effect of other antidysrhythmic drugs, initial encounter; D64.9 Anemia, unspecified
CPT/HCPCS: 0241U-QW; 36415; 71045-TC-FY; 80053; 81003; 82550; 83036; 83735; 83880; 84100; 84439; 84443; 84481; 84484; 85025; 85027; 85610; 85730; 86850; 86900; 86901; 93005; 93010; 97162-GP; 99285-25; G0378

== ENCOUNTER 2022-05-15 04:57 | Observation (INO) | payer BC ==
[2022-05-15 05:12] VITALS: BMI 24.3
[2022-05-15] MEDS ORDERED: dilTIAZem HCL 50 MG/10 ML - 10 ML VIAL IVPUSH ONE (05:35)
[2022-05-15] MEDS ORDERED: dilTIAZem HCL 125 MG/25 ML - 25 ML VIAL ONE (06:06)
[2022-05-15] MEDS ORDERED: dilTIAZem HCL 60 MG TABLET PO ONE (06:23)
[2022-05-15] MEDS ORDERED: dilTIAZem HCL 60 MG TABLET ONE (06:26)
[2022-05-15] MEDS ORDERED: PIPERACILLIN/TAZOB 4.5 GM 4.5 GM in DEXTROSE 5%-WATER 100 ML IVPB ONE (06:49)
[2022-05-15] MEDS ORDERED: VANCOMYCIN 1 GM in D5W (PRE-DOCKED) 1,000 MG/250 ML IVPB ONE (06:49)
[2022-05-15 06:51] LABS: VENOUS BASE EXCESS 1.2 mmol/L (-2-2); VENOUS O2 SATURATION 42.5 % (70-80); VENOUS PCO2 53.3 mmHg (38-52); VENOUS PH 7.335 (7.310-7.410)
[2022-05-15] MEDS ORDERED: PIPERACILLIN/TAZOB 4.5 GM 4.5 GM/100 ML BAG IVPB ONE (06:52)
[2022-05-15 06:57] LABS: BASO % 0.5 % (0-2.0); EOS % 0.3 % (0-4.5); HEMATOCRIT 33.8 % (32.4-45.2); HEMOGLOBIN 10.5 GM/dL (10.7-15.3); LYMPH % 5.7 % (8-40); MCH 26.9 pg (25.7-33.7); MEAN CELL VOLUME 86.7 fl (80-96); MEAN PLT VOLUME 7.7 fl (7.5-11.1); MONO % 7.6 % (3.8-10.2); NEUT % 85.9 % (42.8-82.8); PLATELET COUNT 350 10^3/uL (134-434); RDW 19.8 % (11.6-15.6); WHITE BLOOD COUNT 12.6 K/mm3 (4.0-10.0)
[2022-05-15 07:06] LABS: CHLORIDE 125 mmol/L (98-107); SODIUM 147 mmol/L (136-145)
[2022-05-15 07:09] LABS: CO2 20 mmol/L (21-32); GLUCOSE,RANDOM 75 mg/dL (74-106); MAGNESIUM 1.2 mg/dL (1.8-2.4)
[2022-05-15 07:11] LABS: CREATININE 0.4 mg/dL (0.55-1.3)
[2022-05-15 07:12] LABS: INR 1.72 (0.83-1.09); PHOSPHOROUS 1.9 mg/dL (2.5-4.9); PROTHROMBIN TIME (PATIENT) 19.9 SEC (9.7-13.0); SGPT/ALT 13 U/L (13-61)
[2022-05-15 07:13] LABS: BILIRUBIN,TOTAL 0.3 mg/dL (0.2-1)
[2022-05-15 07:15] LABS: ACTIVATED PTT 39.8 SECONDS (25.2-36.5)
[2022-05-15] MEDS ORDERED: VANCOMYCIN/WATER FOR INJ (PEG) 1,000 MG/200 ML BAG IVPB ONE (07:20)
[2022-05-15 08:24] LABS: ALBUMIN 1.8 g/dl (3.4-5.0); ALK PHOS 62 U/L (45-117); ANION GAP 2 MMOL/L (8-16); CALCIUM 5.2 mg/dL (8.5-10.1); SGOT/AST 19 U/L (15-37); TOT PROT 3.9 g/dl (6.4-8.2)
[2022-05-15] MEDS ORDERED: MAGNESIUM SULF 50% (8.12 MEQ/2 ML-1 GM VIAL) IVPB ONE (08:26)
[2022-05-15] MEDS ORDERED: POTASSIUM CHLORIDE ORAL LIQUID 20 MEQ/15 ML PO ONE ×2 (08:26→08:59)
[2022-05-15] MEDS ORDERED: KCL 10 MEQ IVPB 10 MEQ/100 ML INFUS.BAG IVPB ONE (08:40)
[2022-05-15] MEDS ORDERED: MAGNESIUM SULFATE IN WATER 2 GM/50 ML IVPB IVPB ONE (08:40)
[2022-05-15] MEDS: KCL 10 MEQ IVPB 10 MEQ/100 ML INFUS.BAG IVPB SCH ×3 (09:15→10:11)
[2022-05-15] MEDS ORDERED: POTASSIUM CHLORIDE TABS 20 MEQ TABLET.ER (FP) PO ONE (09:18)
[2022-05-15 09:35] LABS: BLOOD UREA NITROGEN 21.2 mg/dL (7-18)
[2022-05-15 09:38] LABS: CREATININE 0.8 mg/dL (0.55-1.3)
[2022-05-15 09:40] LABS: BILIRUBIN,TOTAL 0.5 mg/dL (0.2-1); TOT PROT 5.8 g/dl (6.4-8.2)
[2022-05-15 09:42] LABS: ALBUMIN 2.7 g/dl (3.4-5.0); CALCIUM 8.4 mg/dL (8.5-10.1)
[2022-05-15] MEDS ORDERED: FUROSEMIDE 40 MG/4 ML INJECTABLE VIAL IVPUSH ONE (11:19)
[2022-05-15] MEDS ORDERED: FUROSEMIDE 40 MG/4 ML INJECTABLE VIAL ONE (11:30)
[2022-05-15 13:34] LABS: EPI CELLS 21 /uL (0-25.1); HYALINE CASTS 1 /uL (0-3.1); PH,URINE 5.5 (5.0-8.0); URINE APPEARANCE CLEAR; URINE BACTERIA >9,000 /uL (0-1359); URINE BILIRUBIN NEGATIVE (NEGATIVE); URINE COLOR YELLOW; URINE GLUCOSE (UA) NEGATIVE (NEGATIVE); URINE KETONE NEGATIVE (NEGATIVE); URINE LEUK ESTERASE NEGATIVE (NEGATIVE); URINE NITRITE POSITIVE (NEGATIVE); URINE PROTEIN TRACE (NEGATIVE); URINE RBC 4 /uL (0-23.9); URINE UROBILINOGEN 0.2 mg/dL (0.2-1.0); URINE WBC 13 /uL (0-25.8)
[2022-05-15] MEDS: LISINOPRIL 10 MG TABLET PO SCH (21:41)
[2022-05-15] MEDS: RIVAROXABAN 15 MG TABLET PO SCH (21:42)
[2022-05-15] MEDS: METHIMAZOLE 5 MG TABLET PO SCH (22:00)
[2022-05-16] MEDS: POLYETHYLENE GLYCOL (HEALTHYLAX) 3350 17 GM PACKET PO SCH ×3 (06:48→21:21)
[2022-05-16] MEDS: METHIMAZOLE 5 MG TABLET PO SCH ×3 (06:48→21:20)
[2022-05-16 08:25] LABS: INR 2.38 (0.83-1.09); PROTHROMBIN TIME (PATIENT) 27.4 SEC (9.7-13.0)
[2022-05-16 08:28] LABS: ACTIVATED PTT 45.1 SECONDS (25.2-36.5)
[2022-05-16 08:30] LABS: BASO % 0.3 % (0-2.0); EOS % 2.1 % (0-4.5); HEMATOCRIT 29.8 % (32.4-45.2); HEMOGLOBIN 9.4 GM/dL (10.7-15.3); LYMPH % 9.8 % (8-40); MCH 27.2 pg (25.7-33.7); MCHC 31.7 g/dl (32.0-36.0); MEAN CELL VOLUME 85.8 fl (80-96); MEAN PLT VOLUME 7.6 fl (7.5-11.1); MONO % 4.7 % (3.8-10.2); NEUT % 83.1 % (42.8-82.8); PLATELET COUNT 309 10^3/uL (134-434); RBC 3.47 M/mm3 (3.60-5.2); WHITE BLOOD COUNT 7.9 K/mm3 (4.0-10.0)
[2022-05-16 08:54] LABS: BLOOD UREA NITROGEN 19.6 mg/dL (7-18)
[2022-05-16 08:55] LABS: ALBUMIN 2.7 g/dl (3.4-5.0)
[2022-05-16 08:56] LABS: CALCIUM 8.7 mg/dL (8.5-10.1)
[2022-05-16 08:57] LABS: MAGNESIUM 2.3 mg/dL (1.8-2.4); PHOSPHOROUS 3.1 mg/dL (2.5-4.9)
[2022-05-16 08:59] LABS: BILIRUBIN,TOTAL 0.5 mg/dL (0.2-1); CREATININE 0.7 mg/dL (0.55-1.3)
[2022-05-16 09:00] LABS: TOT PROT 5.8 g/dl (6.4-8.2)
[2022-05-16] MEDS: DIGOXIN 0.125 MG TABLET PO SCH (09:41)
[2022-05-16] MEDS: LISINOPRIL 10 MG TABLET PO SCH ×2 (09:41→21:20)
[2022-05-16] MEDS: ASPIRIN 81 MG CHEWABLE TABLETS PO SCH (09:42)
[2022-05-16] MEDS: FUROSEMIDE 40 MG/4 ML INJECTABLE VIAL IVPUSH SCH (17:06)
[2022-05-16] MEDS: RIVAROXABAN 15 MG TABLET PO SCH (18:02)
[2022-05-17 08:30] LABS: BLOOD UREA NITROGEN 17.1 mg/dL (7-18); CALCIUM 8.5 mg/dL (8.5-10.1)
[2022-05-17 08:31] LABS: ALBUMIN 2.8 g/dl (3.4-5.0)
[2022-05-17 08:33] LABS: PHOSPHOROUS 2.8 mg/dL (2.5-4.9)
[2022-05-17 08:34] LABS: CREATININE 0.7 mg/dL (0.55-1.3)
[2022-05-17 08:35] LABS: BILIRUBIN,TOTAL 0.6 mg/dL (0.2-1); TOT PROT 5.9 g/dl (6.4-8.2)
[2022-05-17] MEDS: LISINOPRIL 10 MG TABLET PO SCH ×2 (10:19→21:12)
[2022-05-17] MEDS: FUROSEMIDE 40 MG/4 ML INJECTABLE VIAL IVPUSH SCH (10:20)
[2022-05-17] MEDS: POLYETHYLENE GLYCOL (HEALTHYLAX) 3350 17 GM PACKET PO SCH ×2 (10:20→21:12)
[2022-05-17] MEDS: ASPIRIN 81 MG CHEWABLE TABLETS PO SCH (10:20)
[2022-05-17] MEDS: DIGOXIN 0.125 MG TABLET PO SCH (11:32)
[2022-05-17 13:08] VITALS: RESP 18
[2022-05-17] MEDS: METHIMAZOLE 5 MG TABLET PO SCH ×2 (13:47→21:14)
[2022-05-17] MEDS: RIVAROXABAN 15 MG TABLET PO SCH (17:50)
[2022-05-18] MEDS: METHIMAZOLE 5 MG TABLET PO SCH ×3 (06:41→21:12)
[2022-05-18 08:16] LABS: HEMATOCRIT 28.7 % (32.4-45.2); HEMOGLOBIN 9.7 GM/dL (10.7-15.3); MCH 28.7 pg (25.7-33.7); MCHC 33.6 g/dl (32.0-36.0); MEAN CELL VOLUME 85.5 fl (80-96); MEAN PLT VOLUME 7.2 fl (7.5-11.1); PLATELET COUNT 304 10^3/uL (134-434); RBC 3.36 M/mm3 (3.60-5.2); RDW 19.1 % (11.6-15.6)
[2022-05-18 08:27] LABS: CALCIUM 8.5 mg/dL (8.5-10.1)
[2022-05-18 08:28] LABS: BLOOD UREA NITROGEN 14.1 mg/dL (7-18); MAGNESIUM 2.2 mg/dL (1.8-2.4)
[2022-05-18 08:31] LABS: CREATININE 0.6 mg/dL (0.55-1.3); PHOSPHOROUS 2.7 mg/dL (2.5-4.9)
[2022-05-18] MEDS: ASPIRIN 81 MG CHEWABLE TABLETS PO SCH (10:06)
[2022-05-18] MEDS: FUROSEMIDE 40 MG/4 ML INJECTABLE VIAL IVPUSH SCH (10:07)
[2022-05-18] MEDS: LISINOPRIL 10 MG TABLET PO SCH ×2 (10:07→21:13)
[2022-05-18] MEDS: DIGOXIN 0.125 MG TABLET PO SCH (10:07)
[2022-05-18] MEDS: POLYETHYLENE GLYCOL (HEALTHYLAX) 3350 17 GM PACKET PO SCH ×2 (10:07→21:12)
[2022-05-18] MEDS: RIVAROXABAN 15 MG TABLET PO SCH (18:17)
[2022-05-18 19:56] VITALS: BP 125/52; PULSE 66; TEMP 98
== END 2022-05-18 21:30 | disposition home or self-care (01) ==
LOC: JER 04:57 → INTOOBSV 08:31 → JERBED 08:31 → UNDOADMOB 08:31 → JERBED 14:38 → J4W 18:29
PROVIDERS: ADMIT Internal Medicine; ATTEND Internal Medicine
PROC: 3E033GC Introduction of Other Therapeutic Substance into Peripheral Vein, Percutaneous Approach (ICD-10-PCS; principal; 2022-05-15)
PROC: 3E03329 Introduction of Other Anti-infective into Peripheral Vein, Percutaneous Approach (ICD-10-PCS; 2022-05-15)
DX: U07.1 COVID-19 (principal); I48.0 Paroxysmal atrial fibrillation; I25.10 Atherosclerotic heart disease of native coronary artery without angina pectoris; I11.0 Hypertensive heart disease with heart failure; D64.9 Anemia, unspecified; E05.80 Other thyrotoxicosis without thyrotoxic crisis or storm; R00.2 Palpitations; E78.5 Hyperlipidemia, unspecified; M25.561 Pain in right knee; R06.00 Dyspnea, unspecified; R77.8 Other specified abnormalities of plasma proteins; Z88.8 Allergy status to other drugs, medicaments and biological substances; R74.01 Elevation of levels of liver transaminase levels
CPT/HCPCS: 0241U-QW; 36415; 71045-TC-FY; 80048; 80053; 80061; 80162; 81003; 82550; 82803; 83605; 83735; 83880; 84100; 84436; 84439; 84443; 84479; 84484; 85025; 85027; 85610; 85730; 87040; 87086; 87186; 93005; 93010; 93306-TC; 94761; 96365; 96375; 96376; 97162-GP; 99285-25; G0378

== ENCOUNTER 2022-06-13 09:37 | Inpatient (IN) | payer BC, OTHER ==
[2022-06-13] MEDS ORDERED: FUROSEMIDE 40 MG/4 ML INJECTABLE VIAL IVPUSH ONE (10:35)
[2022-06-13] MEDS ORDERED: FUROSEMIDE 40 MG/4 ML INJECTABLE VIAL ONE (10:57)
[2022-06-13] MEDS ORDERED: VANCOMYCIN 1 GM in D5W (PRE-DOCKED) 1,000 MG/250 ML IVPB ONE (11:16)
[2022-06-13] MEDS ORDERED: PIPERACILLIN/TAZOB 3.375 GM 3.375 GM in DEXTROSE 5%-WATER - 50 ML IVPB ONE (11:16)
[2022-06-13 11:25] LABS: BASO % 0.4 % (0-2.0); EOS % 0.8 % (0-4.5); HEMATOCRIT 28.1 % (32.4-45.2); HEMOGLOBIN 9.3 GM/dL (10.7-15.3); LYMPH % 7.6 % (8-40); MCH 27.2 pg (25.7-33.7); MCHC 33.2 g/dl (32.0-36.0); MEAN CELL VOLUME 81.8 fl (80-96); MEAN PLT VOLUME 7.1 fl (7.5-11.1); NEUT % 87.2 % (42.8-82.8); PLATELET COUNT 398 10^3/uL (134-434); RBC 3.43 M/mm3 (3.60-5.2); RDW 20.9 % (11.6-15.6)
[2022-06-13 11:33] LABS: INR 1.92 (0.83-1.09); PROTHROMBIN TIME (PATIENT) 22.1 SEC (9.7-13.0)
[2022-06-13] MEDS ORDERED: VANCOMYCIN/WATER FOR INJ (PEG) 1,000 MG/200 ML BAG IVPB ONE (11:33)
[2022-06-13] MEDS ORDERED: PIPERACILLIN/TAZOB 3.375 GM 3.375 GM/50 ML BAG IVPB ONE ×2 (11:33→19:28)
[2022-06-13 11:35] LABS: ACTIVATED PTT 41.6 SECONDS (25.2-36.5)
[2022-06-13 11:47] LABS: ALBUMIN 2.9 g/dl (3.4-5.0); BLOOD UREA NITROGEN 16.3 mg/dL (7-18); CALCIUM 8.7 mg/dL (8.5-10.1); MAGNESIUM 2.3 mg/dL (1.8-2.4)
[2022-06-13 11:51] LABS: CREATININE 0.8 mg/dL (0.55-1.3)
[2022-06-13 11:52] LABS: BILIRUBIN,TOTAL 0.7 mg/dL (0.2-1); TOT PROT 6.6 g/dl (6.4-8.2)
[2022-06-13 11:56] LABS: N-TERMINAL BNP 2818.4 pg/ml (5-450)
[2022-06-13 13:12] LABS: VENOUS O2 SATURATION 32.1 % (70-80); VENOUS PH 7.392 (7.310-7.410)
[2022-06-13 13:14] LABS: EPI CELLS 13 /uL (0-25.1); HYALINE CASTS 0 /uL (0-3.1); URINE APPEARANCE CLEAR; URINE BACTERIA >9,000 /uL (0-1359); URINE BILIRUBIN NEGATIVE (NEGATIVE); URINE COLOR YELLOW; URINE GLUCOSE (UA) NEGATIVE (NEGATIVE); URINE KETONE NEGATIVE (NEGATIVE); URINE LEUK ESTERASE NEGATIVE (NEGATIVE); URINE NITRITE POSITIVE (NEGATIVE); URINE PROTEIN NEGATIVE (NEGATIVE); URINE RBC 23 /uL (0-23.9); URINE WBC 44 /uL (0-25.8)
[2022-06-13 13:20] LABS: ANISOCYTOSIS 1+; MACROCYTOSIS 0
[2022-06-13] MEDS: METHIMAZOLE 5 MG TABLET PO SCH (15:32)
[2022-06-13] MEDS ORDERED: PIPERACILLIN/TAZOB 3.375 GM 3.375 GM in DEXTROSE 5%-WATER - 50 ML IVPB SCH (18:00)
[2022-06-13] MEDS: PIPERACILLIN/TAZOB 3.375 GM 3.375 GM in DEXTROSE 5%-WATER - 50 ML IVPB SCH (19:39)
[2022-06-14] MEDS: PIPERACILLIN/TAZOB 3.375 GM 3.375 GM in DEXTROSE 5%-WATER - 50 ML IVPB SCH ×3 (04:30→17:37)
[2022-06-14] MEDS ORDERED: PIPERACILLIN/TAZOB 3.375 GM 3.375 GM/50 ML BAG IVPB ONE (04:33)
[2022-06-14] MEDS ORDERED: FUROSEMIDE 40 MG/4 ML INJECTABLE VIAL ONE (04:33)
[2022-06-14] MEDS ORDERED: LISINOPRIL 10 MG TABLET ONE (04:33)
[2022-06-14 08:24] LABS: ALBUMIN 2.6 g/dl (3.4-5.0); BLOOD UREA NITROGEN 13.2 mg/dL (7-18); CALCIUM 8.2 mg/dL (8.5-10.1); MAGNESIUM 2.3 mg/dL (1.8-2.4)
[2022-06-14 08:27] LABS: BASO % 0.4 % (0-2.0); EOS % 4.6 % (0-4.5); HEMATOCRIT 24.6 % (32.4-45.2); HEMOGLOBIN 8.2 GM/dL (10.7-15.3); MCH 27.1 pg (25.7-33.7); MCHC 33.4 g/dl (32.0-36.0); MEAN CELL VOLUME 81.2 fl (80-96); MEAN PLT VOLUME 7.1 fl (7.5-11.1); MONO % 5.1 % (3.8-10.2); NEUT % 75.9 % (42.8-82.8); PLATELET COUNT 374 10^3/uL (134-434); RBC 3.03 M/mm3 (3.60-5.2); RDW 20.8 % (11.6-15.6)
[2022-06-14 08:28] LABS: CREATININE 0.7 mg/dL (0.55-1.3)
[2022-06-14 08:30] LABS: BILIRUBIN,TOTAL 0.6 mg/dL (0.2-1); TOT PROT 5.8 g/dl (6.4-8.2)
[2022-06-14] MEDS: DIGOXIN 0.125 MG TABLET PO SCH (09:51)
[2022-06-14] MEDS: LISINOPRIL 10 MG TABLET PO SCH ×2 (09:51)
[2022-06-14] MEDS: FUROSEMIDE 40 MG/4 ML INJECTABLE VIAL IVPUSH SCH ×4 (09:52→22:29)
[2022-06-14] MEDS: POLYETHYLENE GLYCOL (HEALTHYLAX) 3350 17 GM PACKET PO SCH ×3 (09:58→22:18)
[2022-06-14] MEDS ORDERED: ASPIRIN 81 MG CHEWABLE TABLETS PO SCH (10:00)
[2022-06-14 10:17] VITALS: BMI 24.5
[2022-06-14] MEDS: METHIMAZOLE 5 MG TABLET PO SCH ×3 (13:34→22:25)
[2022-06-14] MEDS: RIVAROXABAN 15 MG TABLET PO SCH (17:37)
[2022-06-14 18:26] LABS: HEMOGLOBIN 8.7 GM/dL (10.7-15.3); MCH 25.2 pg (25.7-33.7); MCHC 30.9 g/dl (32.0-36.0); MEAN CELL VOLUME 81.4 fl (80-96); MEAN PLT VOLUME 6.6 fl (7.5-11.1); PLATELET COUNT 434 10^3/uL (134-434); RBC 3.44 M/mm3 (3.60-5.2); RDW 20.7 % (11.6-15.6); WHITE BLOOD COUNT 8.7 K/mm3 (4.0-10.0)
[2022-06-14] MEDS ORDERED: FUROSEMIDE 40 MG/4 ML INJECTABLE VIAL IVPUSH SCH (22:55)
[2022-06-15] MEDS: PIPERACILLIN/TAZOB 3.375 GM 3.375 GM in DEXTROSE 5%-WATER - 50 ML IVPB SCH ×3 (03:28→17:41)
[2022-06-15] MEDS: METHIMAZOLE 5 MG TABLET PO SCH ×3 (06:49→21:55)
[2022-06-15] MEDS: FUROSEMIDE 40 MG/4 ML INJECTABLE VIAL IVPUSH SCH ×2 (06:49→13:32)
[2022-06-15 08:41] LABS: BASO % 0.5 % (0-2.0); EOS % 4.1 % (0-4.5); HEMATOCRIT 29.2 % (32.4-45.2); HEMOGLOBIN 9.2 GM/dL (10.7-15.3); LYMPH % 14.7 % (8-40); MCH 26.1 pg (25.7-33.7); MCHC 31.7 g/dl (32.0-36.0); MEAN CELL VOLUME 82.5 fl (80-96); MEAN PLT VOLUME 6.8 fl (7.5-11.1); MONO % 5.9 % (3.8-10.2); NEUT % 74.8 % (42.8-82.8); PLATELET COUNT 461 10^3/uL (134-434); RBC 3.54 M/mm3 (3.60-5.2); RDW 20.7 % (11.6-15.6); WHITE BLOOD COUNT 7.9 K/mm3 (4.0-10.0)
[2022-06-15 09:14] LABS: CALCIUM 8.5 mg/dL (8.5-10.1)
[2022-06-15 09:16] LABS: ALBUMIN 2.7 g/dl (3.4-5.0); BLOOD UREA NITROGEN 16.3 mg/dL (7-18); MAGNESIUM 2.2 mg/dL (1.8-2.4)
[2022-06-15 09:17] LABS: CREATININE 0.9 mg/dL (0.55-1.3)
[2022-06-15 09:18] LABS: PHOSPHOROUS 3.1 mg/dL (2.5-4.9); TOT PROT 6.2 g/dl (6.4-8.2)
[2022-06-15 09:21] LABS: BILIRUBIN,TOTAL 0.6 mg/dL (0.2-1)
[2022-06-15] MEDS: DIGOXIN 0.125 MG TABLET PO SCH (10:31)
[2022-06-15] MEDS: POLYETHYLENE GLYCOL (HEALTHYLAX) 3350 17 GM PACKET PO SCH ×2 (10:32→22:05)
[2022-06-15] MEDS ORDERED: POTASSIUM CHLORIDE ORAL LIQUID 20 MEQ/15 ML PO ONE (16:34)
[2022-06-15] MEDS: RIVAROXABAN 15 MG TABLET PO SCH (17:41)
[2022-06-16] MEDS: PIPERACILLIN/TAZOB 3.375 GM 3.375 GM in DEXTROSE 5%-WATER - 50 ML IVPB SCH ×2 (01:26→09:47)
[2022-06-16] MEDS: METHIMAZOLE 5 MG TABLET PO SCH ×3 (06:34→21:43)
[2022-06-16] MEDS: FUROSEMIDE 40 MG/4 ML INJECTABLE VIAL IVPUSH SCH ×2 (06:48→09:47)
[2022-06-16 07:29] LABS: HEMATOCRIT 26.5 % (32.4-45.2); HEMOGLOBIN 8.4 GM/dL (10.7-15.3); MCH 25.8 pg (25.7-33.7); MCHC 31.7 g/dl (32.0-36.0); MEAN CELL VOLUME 81.4 fl (80-96); MEAN PLT VOLUME 6.6 fl (7.5-11.1); PLATELET COUNT 395 10^3/uL (134-434); RBC 3.25 M/mm3 (3.60-5.2); WHITE BLOOD COUNT 6.9 K/mm3 (4.0-10.0)
[2022-06-16 07:54] LABS: BLOOD UREA NITROGEN 17.4 mg/dL (7-18); CALCIUM 8.2 mg/dL (8.5-10.1); MAGNESIUM 2.4 mg/dL (1.8-2.4)
[2022-06-16 07:57] LABS: CREATININE 0.8 mg/dL (0.55-1.3); PHOSPHOROUS 3.3 mg/dL (2.5-4.9)
[2022-06-16] MEDS: POLYETHYLENE GLYCOL (HEALTHYLAX) 3350 17 GM PACKET PO SCH ×2 (09:48→21:44)
[2022-06-16] MEDS: DIGOXIN 0.125 MG TABLET PO SCH (11:50)
[2022-06-16] MEDS: CEFTRIAXONE 1 GM in DEXTROSE 5%-WATER - 50 ML IVPB SCH (17:31)
[2022-06-16] MEDS: RIVAROXABAN 15 MG TABLET PO SCH (17:31)
[2022-06-16] MEDS: LISINOPRIL 10 MG TABLET PO SCH (21:43)
[2022-06-17] MEDS ORDERED: dilTIAZem HCL 50 MG/10 ML - 10 ML VIAL IVPUSH ONE (03:09)
[2022-06-17 05:50] VITALS: RESP 20
[2022-06-17] MEDS: METHIMAZOLE 5 MG TABLET PO SCH ×2 (06:51→14:12)
[2022-06-17 07:45] LABS: HEMATOCRIT 27.3 % (32.4-45.2); HEMOGLOBIN 8.8 GM/dL (10.7-15.3); MCH 26.2 pg (25.7-33.7); MCHC 32.3 g/dl (32.0-36.0); MEAN PLT VOLUME 6.7 fl (7.5-11.1); PLATELET COUNT 408 10^3/uL (134-434); RBC 3.37 M/mm3 (3.60-5.2); RDW 20.8 % (11.6-15.6); WHITE BLOOD COUNT 10.2 K/mm3 (4.0-10.0)
[2022-06-17 08:35] LABS: CALCIUM 8.4 mg/dL (8.5-10.1)
[2022-06-17 08:36] LABS: BLOOD UREA NITROGEN 19.5 mg/dL (7-18); MAGNESIUM 2.4 mg/dL (1.8-2.4)
[2022-06-17 08:39] LABS: CREATININE 0.9 mg/dL (0.55-1.3); PHOSPHOROUS 3.3 mg/dL (2.5-4.9)
[2022-06-17] MEDS: LISINOPRIL 10 MG TABLET PO SCH (10:58)
[2022-06-17] MEDS: FUROSEMIDE 40 MG/4 ML INJECTABLE VIAL IVPUSH SCH (10:58)
[2022-06-17] MEDS: CEFTRIAXONE 1 GM in DEXTROSE 5%-WATER - 50 ML IVPB SCH (11:00)
[2022-06-17] MEDS: POLYETHYLENE GLYCOL (HEALTHYLAX) 3350 17 GM PACKET PO SCH ×2 (11:00→11:05)
[2022-06-17] MEDS: RIVAROXABAN 15 MG TABLET PO SCH (17:25)
[2022-06-17 19:11] VITALS: BP 104/51; PULSE 51; TEMP 99.2
== END 2022-06-17 20:11 | disposition home health service (06) | DRG 291 ==
LOC: JER 09:37 → JERBED 06-14 00:05 → J4W 06-14 09:07
PROVIDERS: ADMIT Internal Medicine; ATTEND Internal Medicine
DX: I11.0 Hypertensive heart disease with heart failure (principal); I50.33 Acute on chronic diastolic (congestive) heart failure; J18.9 Pneumonia, unspecified organism; J96.01 Acute respiratory failure with hypoxia; I48.92 Unspecified atrial flutter; N39.0 Urinary tract infection, site not specified; E78.5 Hyperlipidemia, unspecified; I48.91 Unspecified atrial fibrillation; I25.10 Atherosclerotic heart disease of native coronary artery without angina pectoris; E05.90 Thyrotoxicosis, unspecified without thyrotoxic crisis or storm; D64.9 Anemia, unspecified; M06.9 Rheumatoid arthritis, unspecified; I27.20 Pulmonary hypertension, unspecified; B96.20 Unspecified Escherichia coli [E. coli] as the cause of diseases classified elsewhere
CPT/HCPCS: 0241U-QW; 36415; 71045-TC-FY; 80048; 80053; 80162; 81003; 82550; 82803; 83735; 83880; 84100; 84439; 84443; 84480; 84484; 85025; 85027; 85610; 85730; 86850; 86900; 86901; 87086; 87186; 93005; 93010; 94660; 94761; 97162-GP; 99285-25

== ENCOUNTER 2022-07-12 09:57 | Inpatient (IN) | payer BC, OTHER ==
[2022-07-12] MEDS ORDERED: FUROSEMIDE 40 MG/4 ML INJECTABLE VIAL IVPUSH ONE ×2 (11:08→14:58)
[2022-07-12] MEDS ORDERED: FUROSEMIDE 40 MG/4 ML INJECTABLE VIAL ONE ×2 (11:15→15:04)
[2022-07-12 11:16] LABS: BASO % 1.1 % (0-2.0); EOS % 1.1 % (0-4.5); HEMATOCRIT 21.8 % (32.4-45.2); LYMPH % 6.3 % (8-40); MCH 23.7 pg (25.7-33.7); MCHC 31.3 g/dl (32.0-36.0); MEAN CELL VOLUME 75.7 fl (80-96); MONO % 3.4 % (3.8-10.2); NEUT % 88.1 % (42.8-82.8); PLATELET COUNT 426 10^3/uL (134-434); RBC 2.88 M/mm3 (3.60-5.2); RDW 21.8 % (11.6-15.6); WHITE BLOOD COUNT 7.7 K/mm3 (4.0-10.0)
[2022-07-12 11:17] LABS: VENOUS BASE EXCESS 5.2 mmol/L (-2-2); VENOUS O2 SATURATION 55.2 % (70-80); VENOUS PCO2 50.8 mmHg (38-52); VENOUS PH 7.399 (7.310-7.410)
[2022-07-12 11:19] LABS: HEMOGLOBIN 6.8 GM/dL (10.7-15.3)
[2022-07-12 11:23] LABS: INR 1.78 (0.83-1.09); PROTHROMBIN TIME (PATIENT) 20.5 SEC (9.7-13.0)
[2022-07-12 11:25] LABS: ACTIVATED PTT 42.8 SECONDS (25.2-36.5)
[2022-07-12 11:35] LABS: POTASSIUM 3.4 mmol/L (3.5-5.1)
[2022-07-12 11:37] LABS: CALCIUM 8.9 mg/dL (8.5-10.1)
[2022-07-12 11:38] LABS: ALBUMIN 3.2 g/dl (3.4-5.0); BLOOD UREA NITROGEN 22.3 mg/dL (7-18)
[2022-07-12 11:41] LABS: CREATININE 0.9 mg/dL (0.55-1.3)
[2022-07-12 11:42] LABS: TOT PROT 6.5 g/dl (6.4-8.2)
[2022-07-12 11:43] LABS: BILIRUBIN,TOTAL 0.4 mg/dL (0.2-1)
[2022-07-12 11:46] LABS: N-TERMINAL BNP 1945.9 pg/ml (5-450)
[2022-07-12 11:51] LABS: ANISOCYTOSIS 3+; MACROCYTOSIS 0; TARGET CELLS 1+
[2022-07-12] MEDS ORDERED: NOREPINEPHRINE BITARTRATE 4 MG/4 ML ML IV ONE ×2 (12:13→12:14)
[2022-07-12] MEDS ORDERED: MIDAZOLAM HCL 2 MG/2 ML SINGLE DOSE VIAL ONE (12:13)
[2022-07-12] MEDS ORDERED: MIDAZOLAM HCL 2 MG/2 ML SINGLE DOSE VIAL IVPUSH ONE (12:55)
[2022-07-12] MEDS ORDERED: PROPOFOL 1,000,000 MCG/100 ML VIAL IVPUSH SCH (13:00)
[2022-07-12] MEDS ORDERED: ACETAMINOPHEN 325 MG TABLET (FP) PO PRN (14:12)
[2022-07-12 17:07] LABS: BASO % 0.6 % (0-2.0); EOS % 0.3 % (0-4.5); HEMATOCRIT 26.1 % (32.4-45.2); HEMOGLOBIN 8.3 GM/dL (10.7-15.3); LYMPH % 8.6 % (8-40); MCH 23.9 pg (25.7-33.7); MCHC 31.8 g/dl (32.0-36.0); MEAN CELL VOLUME 75.2 fl (80-96); MEAN PLT VOLUME 6.9 fl (7.5-11.1); MONO % 2.8 % (3.8-10.2); NEUT % 87.7 % (42.8-82.8); PLATELET COUNT 407 10^3/uL (134-434); RBC 3.47 M/mm3 (3.60-5.2); RDW 21.7 % (11.6-15.6); WHITE BLOOD COUNT 7.8 K/mm3 (4.0-10.0)
[2022-07-12] MEDS ORDERED: METOPROLOL TARTRATE 50 MG TABLET (FP) PO SCH ×2 (17:27→22:00)
[2022-07-12] MEDS ORDERED: METOPROLOL TARTRATE 5 MG/5 ML VIAL IVPUSH ONE ×2 (17:27→18:46)
[2022-07-12] MEDS ORDERED: METOPROLOL TARTRATE 5 MG/5 ML VIAL ONE ×3 (17:30→21:12)
[2022-07-12] MEDS ORDERED: METOPROLOL TARTRATE 50 MG TABLET (FP) ONE (17:51)
[2022-07-12] MEDS ORDERED: RIVAROXABAN 15 MG TABLET PO SCH (18:00)
[2022-07-12] MEDS ORDERED: ADENOSINE 6 MG/2 ML VIAL IVPUSH ONE (18:40)
[2022-07-12] MEDS ORDERED: METOPROLOL TARTRATE 50 MG TABLET (FP) PO ONE (20:03)
[2022-07-12] MEDS: METOPROLOL TARTRATE 5 MG/5 ML VIAL IVPUSH SCH ×2 (20:16→21:10)
[2022-07-12] MEDS ORDERED: POTASSIUM CHLORIDE ORAL LIQUID 20 MEQ/15 ML PO ONE (20:20)
[2022-07-12] MEDS ORDERED: AMIODARONE HCL INJECTION 150 MG in DEXTROSE 5%-WATER - 100 ML IVPB ONE (21:04)
[2022-07-12] MEDS ORDERED: AMIODARONE HCL 150 MG/3 ML VIAL ONE (21:07)
[2022-07-12] MEDS ORDERED: AMIODARONE IN DEXTROSE,ISO-OSM 150 MG/100 ML BAG ONE (21:07)
[2022-07-12] MEDS ORDERED: AMIODARONE IN DEXTROSE,ISO-OSM 150 MG/100 ML BAG IVPB ONE (21:08)
[2022-07-12] MEDS ORDERED: POTASSIUM CHLORIDE ORAL LIQUID 20 MEQ/15 ML ONE (21:13)
[2022-07-12] MEDS ORDERED: AMIODARONE IN DEXTROSE,ISO-OSM 360 MG/200 ML BAG IV SCH (21:30)
[2022-07-12] MEDS ORDERED: AMIODARONE IN DEXTROSE,ISO-OSM 360 MG/200 ML BAG ONE (21:48)
[2022-07-12] MEDS ORDERED: ATORVASTATIN CA 80 MG TABLET (FP) PO SCH (22:00)
[2022-07-12] MEDS ORDERED: SENNOSIDES 8.6MG TABLET (FP) PO SCH (22:00)
[2022-07-12] MEDS ORDERED: METHIMAZOLE 5 MG TABLET PO SCH (22:00)
[2022-07-13] MEDS ORDERED: METOPROLOL TARTRATE 50 MG TABLET (FP) PO SCH
[2022-07-13] MEDS ORDERED: AMIODARONE IN DEXTROSE,ISO-OSM 360 MG/200 ML BAG IV SCH ×2 (01:34→03:31)
[2022-07-13] MEDS ORDERED: PHENYLEPHRINE NS PREMIX 50,000 MCG/500 ML BAG CVP SCH (02:15)
[2022-07-13] MEDS ORDERED: PHENYLEPHRINE NS PREMIX 50,000 MCG/500 ML BAG IVPB SCH (02:30)
[2022-07-13] MEDS ORDERED: FUROSEMIDE INJECTION 100 MG in DEXTROSE 5%-WATER - 90 ML IVPB SCH (03:30)
[2022-07-13] MEDS: AMIODARONE IN DEXTROSE,ISO-OSM 360 MG/200 ML BAG IV SCH ×2 (03:57→12:41)
[2022-07-13] MEDS: METOPROLOL TARTRATE 50 MG TABLET (FP) PO SCH ×4 (05:08→17:17)
[2022-07-13] MEDS: METHIMAZOLE 5 MG TABLET PO SCH ×3 (07:26→21:51)
[2022-07-13 08:04] LABS: POTASSIUM 3.9 mmol/L (3.5-5.1)
[2022-07-13 08:08] LABS: ACTIVATED PTT 45.2 SECONDS (25.2-36.5)
[2022-07-13 08:10] LABS: INR 2.08 (0.83-1.09); PROTHROMBIN TIME (PATIENT) 23.9 SEC (9.7-13.0)
[2022-07-13 08:12] LABS: BLOOD UREA NITROGEN 25.5 mg/dL (7-18)
[2022-07-13 08:13] LABS: CALCIUM 8.9 mg/dL (8.5-10.1)
[2022-07-13 08:14] LABS: MAGNESIUM 2.2 mg/dL (1.8-2.4)
[2022-07-13 08:17] LABS: BILIRUBIN,TOTAL 0.5 mg/dL (0.2-1); CREATININE 1.2 mg/dL (0.55-1.3)
[2022-07-13 08:18] LABS: TOT PROT 6.4 g/dl (6.4-8.2)
[2022-07-13 09:06] LABS: BASO % 0.2 % (0-2.0); EOS % 0.8 % (0-4.5); HEMATOCRIT 27.3 % (32.4-45.2); HEMOGLOBIN 8.6 GM/dL (10.7-15.3); LYMPH % 14.6 % (8-40); MCH 23.7 pg (25.7-33.7); MCHC 31.5 g/dl (32.0-36.0); MEAN CELL VOLUME 75.1 fl (80-96); MEAN PLT VOLUME 7.1 fl (7.5-11.1); MONO % 2.8 % (3.8-10.2); NEUT % 81.6 % (42.8-82.8); PLATELET COUNT 488 10^3/uL (134-434); RBC 3.64 M/mm3 (3.60-5.2); RDW 22.1 % (11.6-15.6); WHITE BLOOD COUNT 9.8 K/mm3 (4.0-10.0)
[2022-07-13] MEDS: ASPIRIN COATED 81 MG TABLET.EC PO SCH (09:06)
[2022-07-13] MEDS: MUPIROCIN 2% TOPICAL OINTMENT FOR DECOLONIZATION NS SCH ×2 (09:06→21:19)
[2022-07-13] MEDS ORDERED: FUROSEMIDE 40 MG/4 ML INJECTABLE VIAL IVPUSH SCH ×2 (10:00)
[2022-07-13] MEDS ORDERED: SODIUM CHLORIDE 0.9% 500 ML INFUS.BAG IV ONE ×2 (11:06→13:13)
[2022-07-13] MEDS ORDERED: POTASSIUM CHLORIDE TABS 10 MEQ TABLET.ER (FP) PO ONE (11:08)
[2022-07-13] MEDS ORDERED: ONDANSETRON 4 MG/2 ML VIAL IVPUSH ONE (11:11)
[2022-07-13] MEDS ORDERED: AMIODARONE HCL 150 MG/3 ML VIAL ONE (11:18)
[2022-07-13] MEDS ORDERED: METOPROLOL TARTRATE 5 MG/5 ML VIAL ONE (11:19)
[2022-07-13] MEDS ORDERED: METOPROLOL TARTRATE 5 MG/5 ML VIAL IVPUSH ONE ×2 (11:30→16:44)
[2022-07-13] MEDS ORDERED: AMIODARONE IN DEXTROSE 150 MG/100 ML PREMIX BAG IVPB ONE (12:00)
[2022-07-13] MEDS: PHENYLEPHRINE NS PREMIX 50,000 MCG/500 ML BAG IVPB SCH ×2 (13:14→17:15)
[2022-07-13] MEDS: POLYETHYLENE GLYCOL (HEALTHYLAX) 3350 17 GM PACKET PO SCH (14:26)
[2022-07-13] MEDS ORDERED: SODIUM CHLORIDE 1,000 ML IV SCH (15:15)
[2022-07-13] MEDS ORDERED: AMIODARONE HCL INJECTION 150 MG in DEXTROSE 5%-WATER - 100 ML IVPB ONE (16:42)
[2022-07-13] MEDS: RIVAROXABAN 15 MG TABLET PO SCH (17:15)
[2022-07-13] MEDS ORDERED: dilTIAZem HCL 50 MG/10 ML - 10 ML VIAL IVPUSH ONE (17:42)
[2022-07-13] MEDS: CHLORHEXIDINE GLUCONATE 4% CLEANSER FOR DECOLONIZATION TP SCH (21:19)
[2022-07-13] MEDS: ATORVASTATIN CA 80 MG TABLET (FP) PO SCH (21:20)
[2022-07-13] MEDS: SENNOSIDES 8.6MG TABLET (FP) PO SCH (21:20)
[2022-07-14] MEDS: METOPROLOL TARTRATE 50 MG TABLET (FP) PO SCH ×5 (00:56→23:39)
[2022-07-14] MEDS: AMIODARONE IN DEXTROSE,ISO-OSM 360 MG/200 ML BAG IV SCH ×5 (00:57→19:51)
[2022-07-14] MEDS ORDERED: AMIODARONE IN DEXTROSE 150 MG/100 ML PREMIX BAG IVPB ONE (07:03)
[2022-07-14] MEDS ORDERED: AMIODARONE IN DEXTROSE,ISO-OSM 150 MG/100 ML BAG ONE (07:03)
[2022-07-14] MEDS: METHIMAZOLE 5 MG TABLET PO SCH ×3 (07:13→21:18)
[2022-07-14 07:34] LABS: BASO % 0.5 % (0-2.0); EOS % 0.9 % (0-4.5); HEMATOCRIT 26.1 % (32.4-45.2); HEMOGLOBIN 8.3 GM/dL (10.7-15.3); LYMPH % 13.1 % (8-40); MCHC 31.6 g/dl (32.0-36.0); MEAN PLT VOLUME 7.5 fl (7.5-11.1); MONO % 3.5 % (3.8-10.2); PLATELET COUNT 421 10^3/uL (134-434); RBC 3.44 M/mm3 (3.60-5.2); RDW 22.4 % (11.6-15.6); WHITE BLOOD COUNT 9.1 K/mm3 (4.0-10.0)
[2022-07-14 08:00] LABS: POTASSIUM 4.1 mmol/L (3.5-5.1)
[2022-07-14 08:10] LABS: CALCIUM 8.7 mg/dL (8.5-10.1)
[2022-07-14 08:11] LABS: ALBUMIN 2.7 g/dl (3.4-5.0); BLOOD UREA NITROGEN 24.9 mg/dL (7-18); MAGNESIUM 2.1 mg/dL (1.8-2.4)
[2022-07-14 08:14] LABS: PHOSPHOROUS 3.9 mg/dL (2.5-4.9)
[2022-07-14 08:15] LABS: BILIRUBIN,TOTAL 0.4 mg/dL (0.2-1); TOT PROT 5.8 g/dl (6.4-8.2)
[2022-07-14] MEDS: POLYETHYLENE GLYCOL (HEALTHYLAX) 3350 17 GM PACKET PO SCH (09:29)
[2022-07-14] MEDS: ASPIRIN COATED 81 MG TABLET.EC PO SCH (09:29)
[2022-07-14] MEDS: MUPIROCIN 2% TOPICAL OINTMENT FOR DECOLONIZATION NS SCH ×2 (09:30→21:18)
[2022-07-14] MEDS ORDERED: VASOPRESSIN 20 UNITS/ML VIAL IV ONE (09:54)
[2022-07-14] MEDS: VASOPRESSIN 40 UNITS/100 ML BAG IV SCH ×2 (10:01→10:47)
[2022-07-14] MEDS ORDERED: PHENYLEPHRINE HCL 10 MG/1 ML SINGLE DOSE VIAL IVPB SCH ×3 (10:30→10:34)
[2022-07-14] MEDS: RIVAROXABAN 15 MG TABLET PO SCH (17:07)
[2022-07-14] MEDS: SENNOSIDES 8.6MG TABLET (FP) PO SCH (21:18)
[2022-07-14] MEDS: ATORVASTATIN CA 80 MG TABLET (FP) PO SCH (21:18)
[2022-07-14] MEDS: CHLORHEXIDINE GLUCONATE 4% CLEANSER FOR DECOLONIZATION TP SCH (21:18)
[2022-07-15] MEDS: METOPROLOL TARTRATE 50 MG TABLET (FP) PO SCH ×4 (06:13→23:12)
[2022-07-15] MEDS: METHIMAZOLE 5 MG TABLET PO SCH ×3 (06:13→21:41)
[2022-07-15 07:56] LABS: BASO % 0.7 % (0-2.0); EOS % 2.4 % (0-4.5); HEMATOCRIT 22.9 % (32.4-45.2); HEMOGLOBIN 7.4 GM/dL (10.7-15.3); LYMPH % 15.2 % (8-40); MCH 24.5 pg (25.7-33.7); MCHC 32.3 g/dl (32.0-36.0); MEAN PLT VOLUME 7.2 fl (7.5-11.1); MONO % 5.3 % (3.8-10.2); NEUT % 76.4 % (42.8-82.8); PLATELET COUNT 360 10^3/uL (134-434); RBC 3.01 M/mm3 (3.60-5.2); RDW 21.5 % (11.6-15.6)
[2022-07-15 08:09] LABS: POTASSIUM 4.3 mmol/L (3.5-5.1)
[2022-07-15 08:11] LABS: BLOOD UREA NITROGEN 25.1 mg/dL (7-18); CALCIUM 8.4 mg/dL (8.5-10.1)
[2022-07-15 08:12] LABS: ALBUMIN 2.6 g/dl (3.4-5.0)
[2022-07-15 08:16] LABS: BILIRUBIN,TOTAL 0.3 mg/dL (0.2-1); TOT PROT 5.5 g/dl (6.4-8.2)
[2022-07-15] MEDS: ASPIRIN COATED 81 MG TABLET.EC PO SCH (09:34)
[2022-07-15] MEDS: POLYETHYLENE GLYCOL (HEALTHYLAX) 3350 17 GM PACKET PO SCH (09:34)
[2022-07-15] MEDS: MUPIROCIN 2% TOPICAL OINTMENT FOR DECOLONIZATION NS SCH ×2 (09:35→21:41)
[2022-07-15] MEDS ORDERED: FUROSEMIDE 40 MG/4 ML INJECTABLE VIAL IVPUSH ONE ×2 (09:44→15:00)
[2022-07-15] MEDS ORDERED: LACTATED RINGERS SOLUTION 1000 ML INFUS.BAG IV ONE (13:05)
[2022-07-15] MEDS ORDERED: METOPROLOL TARTRATE 5 MG/5 ML VIAL IVPUSH ONE ×2 (13:07→23:42)
[2022-07-15] MEDS ORDERED: ALBUMIN HUMAN 25% 12.5 GM/50 ML VIAL IV ONE (15:00)
[2022-07-15 16:07] LABS: BASO % 0.3 % (0-2.0); EOS % 1.2 % (0-4.5); HEMATOCRIT 24.2 % (32.4-45.2); HEMOGLOBIN 7.7 GM/dL (10.7-15.3); LYMPH % 8.2 % (8-40); MCH 24.2 pg (25.7-33.7); MCHC 31.6 g/dl (32.0-36.0); MEAN CELL VOLUME 76.6 fl (80-96); MEAN PLT VOLUME 6.9 fl (7.5-11.1); MONO % 5.8 % (3.8-10.2); NEUT % 84.5 % (42.8-82.8); PLATELET COUNT 368 10^3/uL (134-434); RBC 3.16 M/mm3 (3.60-5.2); RDW 22.2 % (11.6-15.6); WHITE BLOOD COUNT 7.1 K/mm3 (4.0-10.0)
[2022-07-15] MEDS: PANTOPRAZOLE 40 MG TABLET PO SCH ×2 (16:29→21:41)
[2022-07-15 16:41] LABS: ANISOCYTOSIS 3+; MACROCYTOSIS 0; OVALOCYTE 1+
[2022-07-15] MEDS: AMIODARONE IN DEXTROSE,ISO-OSM 360 MG/200 ML BAG IV SCH (18:35)
[2022-07-15] MEDS: CHLORHEXIDINE GLUCONATE 4% CLEANSER FOR DECOLONIZATION TP SCH (21:41)
[2022-07-15] MEDS: SENNOSIDES 8.6MG TABLET (FP) PO SCH (21:41)
[2022-07-15] MEDS: ATORVASTATIN CA 80 MG TABLET (FP) PO SCH (21:41)
[2022-07-15] MEDS: VASOPRESSIN 40 UNITS/100 ML BAG IV SCH (21:51)
[2022-07-15] MEDS ORDERED: METOPROLOL TARTRATE 5 MG/5 ML VIAL ONE (23:46)
[2022-07-16] MEDS: METHIMAZOLE 5 MG TABLET PO SCH ×3 (06:18→21:17)
[2022-07-16] MEDS: METOPROLOL TARTRATE 50 MG TABLET (FP) PO SCH ×3 (06:18→17:08)
[2022-07-16] MEDS: AMIODARONE IN DEXTROSE,ISO-OSM 360 MG/200 ML BAG IV SCH ×2 (07:11→19:14)
[2022-07-16 07:39] LABS: BASO % 0.6 % (0-2.0); EOS % 0.5 % (0-4.5); HEMATOCRIT 28.1 % (32.4-45.2); HEMOGLOBIN 8.9 GM/dL (10.7-15.3); LYMPH % 7.9 % (8-40); MCH 24.8 pg (25.7-33.7); MCHC 31.7 g/dl (32.0-36.0); MEAN CELL VOLUME 78.3 fl (80-96); MEAN PLT VOLUME 7.2 fl (7.5-11.1); MONO % 7.3 % (3.8-10.2); NEUT % 83.7 % (42.8-82.8); PLATELET COUNT 343 10^3/uL (134-434); RBC 3.59 M/mm3 (3.60-5.2); RDW 21.8 % (11.6-15.6); RETICULOCYTES 3.99 % (0.5-1.5); WHITE BLOOD COUNT 8.5 K/mm3 (4.0-10.0)
[2022-07-16 08:46] LABS: POTASSIUM 4.2 mmol/L (3.5-5.1)
[2022-07-16 08:55] LABS: TOT PROT 5.8 g/dl (6.4-8.2)
[2022-07-16 08:56] LABS: BILIRUBIN,TOTAL 0.5 mg/dL (0.2-1)
[2022-07-16 09:01] LABS: CALCIUM 8.6 mg/dL (8.5-10.1)
[2022-07-16 09:02] LABS: ALBUMIN 2.8 g/dl (3.4-5.0)
[2022-07-16 09:04] LABS: BILIRUBIN,DIRECT 0.2 mg/dL (0.0-0.2)
[2022-07-16] MEDS: PANTOPRAZOLE 40 MG TABLET PO SCH (09:42)
[2022-07-16] MEDS: POLYETHYLENE GLYCOL (HEALTHYLAX) 3350 17 GM PACKET PO SCH (09:42)
[2022-07-16] MEDS: MUPIROCIN 2% TOPICAL OINTMENT FOR DECOLONIZATION NS SCH ×2 (09:42→21:18)
[2022-07-16] MEDS: ASPIRIN COATED 81 MG TABLET.EC PO SCH (09:43)
[2022-07-16] MEDS ORDERED: METOPROLOL TARTRATE 5 MG/5 ML VIAL IVPUSH ONE (11:23)
[2022-07-16] MEDS ORDERED: METOPROLOL TARTRATE 5 MG/5 ML VIAL IVPUSH PRN (11:23)
[2022-07-16] MEDS ORDERED: BISACODYL 5 MG TABLET.DR (FP) PO ONE (13:58)
[2022-07-16] MEDS ORDERED: dilTIAZem HCL 25 MG/5 ML - 5 ML VIAL ONE (14:02)
[2022-07-16] MEDS ORDERED: RIVAROXABAN 15 MG TABLET PO SCH (18:00)
[2022-07-16] MEDS: SENNOSIDES 8.6MG TABLET (FP) PO SCH (21:16)
[2022-07-16] MEDS: ATORVASTATIN CA 80 MG TABLET (FP) PO SCH (21:17)
[2022-07-16] MEDS: CHLORHEXIDINE GLUCONATE 4% CLEANSER FOR DECOLONIZATION TP SCH (21:18)
[2022-07-17] MEDS: METOPROLOL TARTRATE 50 MG TABLET (FP) PO SCH ×4 (00:44→18:13)
[2022-07-17] MEDS ORDERED: MELATONIN 5 MG TABLETS PO ONE (00:50)
[2022-07-17] MEDS: AMIODARONE IN DEXTROSE,ISO-OSM 360 MG/200 ML BAG IV SCH ×2 (05:42→18:12)
[2022-07-17] MEDS: METHIMAZOLE 5 MG TABLET PO SCH ×3 (06:13→22:36)
[2022-07-17 07:25] LABS: BASO % 0.5 % (0-2.0); EOS % 0.6 % (0-4.5); HEMATOCRIT 34.7 % (32.4-45.2); HEMOGLOBIN 11.1 GM/dL (10.7-15.3); LYMPH % 9.4 % (8-40); MCH 25.4 pg (25.7-33.7); MEAN CELL VOLUME 79.3 fl (80-96); MEAN PLT VOLUME 7.6 fl (7.5-11.1); MONO % 6.8 % (3.8-10.2); NEUT % 82.7 % (42.8-82.8); PLATELET COUNT 379 10^3/uL (134-434); RBC 4.37 M/mm3 (3.60-5.2); RDW 22.4 % (11.6-15.6); WHITE BLOOD COUNT 8.8 K/mm3 (4.0-10.0)
[2022-07-17 07:46] LABS: CALCIUM 8.9 mg/dL (8.5-10.1); INR 2.31 (0.83-1.09); PROTHROMBIN TIME (PATIENT) 26.6 SEC (9.7-13.0)
[2022-07-17 07:47] LABS: BLOOD UREA NITROGEN 27.8 mg/dL (7-18); MAGNESIUM 2.2 mg/dL (1.8-2.4)
[2022-07-17 07:49] LABS: ACTIVATED PTT 43.8 SECONDS (25.2-36.5)
[2022-07-17 07:50] LABS: PHOSPHOROUS 3.7 mg/dL (2.5-4.9)
[2022-07-17 07:51] LABS: TOT PROT 6.3 g/dl (6.4-8.2)
[2022-07-17 07:52] LABS: BILIRUBIN,TOTAL 0.8 mg/dL (0.2-1)
[2022-07-17] MEDS ORDERED: FUROSEMIDE 100 MG/10 ML INJECTABLE VIAL IVPB ONE (08:19)
[2022-07-17] MEDS: MUPIROCIN 2% TOPICAL OINTMENT FOR DECOLONIZATION NS SCH ×2 (09:48→21:12)
[2022-07-17] MEDS ORDERED: IRON SUCROSE INJECTION 200 MG in SODIUM CHLORIDE 90 ML IVPB ONE (10:00)
[2022-07-17] MEDS ORDERED: FUROSEMIDE 40 MG/4 ML INJECTABLE VIAL IVPUSH ONE (11:52)
[2022-07-17] MEDS: POLYETHYLENE GLYCOL (HEALTHYLAX) 3350 17 GM PACKET PO SCH (12:31)
[2022-07-17] MEDS ORDERED: AMIODARONE IN DEXTROSE,ISO-OSM 150 MG/100 ML BAG IVPB ONE (13:05)
[2022-07-17] MEDS ORDERED: dilTIAZem HCL 25 MG/5 ML - 5 ML VIAL IVPUSH ONE (13:05)
[2022-07-17] MEDS ORDERED: BISACODYL 10 MG SUPP.RECT PR ONE (13:50)
[2022-07-17] MEDS ORDERED: dilTIAZem HCL 50 MG/10 ML - 10 ML VIAL IVPUSH PRN (15:53)
[2022-07-17] MEDS ORDERED: RIVAROXABAN 15 MG TABLET PO SCH (18:00)
[2022-07-17] MEDS: RIVAROXABAN 15 MG TABLET PO SCH (18:13)
[2022-07-17] MEDS: SENNOSIDES 8.6MG TABLET (FP) PO SCH (21:11)
[2022-07-17] MEDS: ATORVASTATIN CA 80 MG TABLET (FP) PO SCH (21:12)
[2022-07-17] MEDS: CHLORHEXIDINE GLUCONATE 4% CLEANSER FOR DECOLONIZATION TP SCH (21:12)
[2022-07-18] MEDS: METOPROLOL TARTRATE 50 MG TABLET (FP) PO SCH ×5 (01:03→18:17)
[2022-07-18] MEDS: METHIMAZOLE 5 MG TABLET PO SCH ×3 (06:16→21:16)
[2022-07-18 07:37] LABS: BASO % 0.2 % (0-2.0); EOS % 0.4 % (0-4.5); LYMPH % 7.2 % (8-40); MCH 25.5 pg (25.7-33.7); MCHC 32.2 g/dl (32.0-36.0); MEAN CELL VOLUME 79.2 fl (80-96); MEAN PLT VOLUME 7.7 fl (7.5-11.1); MONO % 8.4 % (3.8-10.2); NEUT % 83.8 % (42.8-82.8); PLATELET COUNT 354 10^3/uL (134-434); RBC 4.29 M/mm3 (3.60-5.2); RDW 22.5 % (11.6-15.6); WHITE BLOOD COUNT 9.3 K/mm3 (4.0-10.0)
[2022-07-18 07:46] LABS: POTASSIUM 3.6 mmol/L (3.5-5.1)
[2022-07-18 07:56] LABS: CALCIUM 8.9 mg/dL (8.5-10.1)
[2022-07-18 07:57] LABS: BLOOD UREA NITROGEN 24.4 mg/dL (7-18)
[2022-07-18 07:58] LABS: MAGNESIUM 2.3 mg/dL (1.8-2.4)
[2022-07-18 08:00] LABS: CREATININE 0.9 mg/dL (0.55-1.3)
[2022-07-18 08:01] LABS: TOT PROT 6.1 g/dl (6.4-8.2)
[2022-07-18 08:02] LABS: PHOSPHOROUS 3.6 mg/dL (2.5-4.9)
[2022-07-18 08:03] LABS: BILIRUBIN,TOTAL 0.8 mg/dL (0.2-1)
[2022-07-18] MEDS: AMIODARONE IN DEXTROSE,ISO-OSM 360 MG/200 ML BAG IV SCH ×2 (08:19→21:17)
[2022-07-18] MEDS ORDERED: FUROSEMIDE 40 MG/4 ML INJECTABLE VIAL ONE (08:33)
[2022-07-18] MEDS ORDERED: FUROSEMIDE 40 MG/4 ML INJECTABLE VIAL IVPUSH STA (08:43)
[2022-07-18] MEDS ORDERED: IRON SUCROSE INJECTION 200 MG in SODIUM CHLORIDE 90 ML IVPB ONE (10:00)
[2022-07-18] MEDS: POLYETHYLENE GLYCOL (HEALTHYLAX) 3350 17 GM PACKET PO SCH (12:27)
[2022-07-18] MEDS: AMINO ACIDS/PROTEIN HYDROLYS 30 ML LIQUID.PKT PO SCH (18:16)
[2022-07-18] MEDS: RIVAROXABAN 15 MG TABLET PO SCH (18:17)
[2022-07-18] MEDS: ATORVASTATIN CA 80 MG TABLET (FP) PO SCH (21:15)
[2022-07-18] MEDS: CHLORHEXIDINE GLUCONATE 4% CLEANSER FOR DECOLONIZATION TP SCH (21:15)
[2022-07-18] MEDS: SENNOSIDES 8.6MG TABLET (FP) PO SCH (21:16)
[2022-07-18] MEDS: FUROSEMIDE INJECTION 100 MG in DEXTROSE 5%-WATER - 90 ML IVPB SCH (22:56)
[2022-07-19] MEDS: METOPROLOL TARTRATE 50 MG TABLET (FP) PO SCH ×5 (00:21→23:19)
[2022-07-19] MEDS: METHIMAZOLE 5 MG TABLET PO SCH ×3 (06:21→21:12)
[2022-07-19 07:33] LABS: POTASSIUM 3.1 mmol/L (3.5-5.1)
[2022-07-19 07:34] LABS: HEMATOCRIT 34.7 % (32.4-45.2); HEMOGLOBIN 11.3 GM/dL (10.7-15.3); MCH 25.7 pg (25.7-33.7); MCHC 32.5 g/dl (32.0-36.0); MEAN CELL VOLUME 79.1 fl (80-96); MEAN PLT VOLUME 7.5 fl (7.5-11.1); PLATELET COUNT 337 10^3/uL (134-434); RBC 4.39 M/mm3 (3.60-5.2); RDW 23.5 % (11.6-15.6); WHITE BLOOD COUNT 8.4 K/mm3 (4.0-10.0)
[2022-07-19] MEDS: AMIODARONE IN DEXTROSE,ISO-OSM 360 MG/200 ML BAG IV SCH ×2 (07:35→21:12)
[2022-07-19] MEDS: AMINO ACIDS/PROTEIN HYDROLYS 30 ML LIQUID.PKT PO SCH ×2 (07:35→17:13)
[2022-07-19] MEDS: FUROSEMIDE INJECTION 100 MG in DEXTROSE 5%-WATER - 90 ML IVPB SCH ×2 (07:36→17:13)
[2022-07-19 07:38] LABS: CALCIUM 8.6 mg/dL (8.5-10.1)
[2022-07-19 07:39] LABS: BLOOD UREA NITROGEN 22.1 mg/dL (7-18); MAGNESIUM 1.9 mg/dL (1.8-2.4)
[2022-07-19 07:41] LABS: CREATININE 0.9 mg/dL (0.55-1.3); PHOSPHOROUS 2.7 mg/dL (2.5-4.9)
[2022-07-19 07:43] LABS: BILIRUBIN,TOTAL 0.8 mg/dL (0.2-1); TOT PROT 6.4 g/dl (6.4-8.2)
[2022-07-19] MEDS ORDERED: POTASSIUM CHLORIDE TABS 20 MEQ TABLET.ER (FP) PO ONE (08:00)
[2022-07-19] MEDS: POLYETHYLENE GLYCOL (HEALTHYLAX) 3350 17 GM PACKET PO SCH (09:03)
[2022-07-19] MEDS: RIVAROXABAN 15 MG TABLET PO SCH (17:13)
[2022-07-19] MEDS: SENNOSIDES 8.6MG TABLET (FP) PO SCH (21:11)
[2022-07-19] MEDS: ATORVASTATIN CA 80 MG TABLET (FP) PO SCH (21:12)
[2022-07-19] MEDS: CHLORHEXIDINE GLUCONATE 4% CLEANSER FOR DECOLONIZATION TP SCH (21:12)
[2022-07-20] MEDS: METOPROLOL TARTRATE 50 MG TABLET (FP) PO SCH ×3 (05:21→22:11)
[2022-07-20] MEDS: METHIMAZOLE 5 MG TABLET PO SCH ×3 (05:21→22:12)
[2022-07-20 07:27] LABS: BASO % 0.3 % (0-2.0); EOS % 2.6 % (0-4.5); HEMATOCRIT 34.6 % (32.4-45.2); HEMOGLOBIN 11.1 GM/dL (10.7-15.3); LYMPH % 9.5 % (8-40); MCH 25.5 pg (25.7-33.7); MEAN CELL VOLUME 79.6 fl (80-96); MONO % 10.5 % (3.8-10.2); NEUT % 77.1 % (42.8-82.8); PLATELET COUNT 336 10^3/uL (134-434); RBC 4.35 M/mm3 (3.60-5.2); RDW 24.7 % (11.6-15.6); WHITE BLOOD COUNT 7.7 K/mm3 (4.0-10.0)
[2022-07-20 07:42] LABS: CHLORIDE 97 mmol/L (98-107); SODIUM 140 mmol/L (136-145)
[2022-07-20 07:45] LABS: ALBUMIN 2.9 g/dl (3.4-5.0); CALCIUM 8.5 mg/dL (8.5-10.1)
[2022-07-20 07:46] LABS: BLOOD UREA NITROGEN 23.4 mg/dL (7-18); CO2 41 mmol/L (21-32); GLUCOSE,RANDOM 87 mg/dL (74-106); MAGNESIUM 1.8 mg/dL (1.8-2.4)
[2022-07-20 07:48] LABS: PHOSPHOROUS 2.7 mg/dL (2.5-4.9); SGPT/ALT 37 U/L (13-61)
[2022-07-20 07:49] LABS: CREATININE 0.9 mg/dL (0.55-1.3); SGOT/AST 12 U/L (15-37)
[2022-07-20 07:50] LABS: ALK PHOS 103 U/L (45-117); BILIRUBIN,TOTAL 0.7 mg/dL (0.2-1)
[2022-07-20] MEDS: AMINO ACIDS/PROTEIN HYDROLYS 30 ML LIQUID.PKT PO SCH ×2 (08:11→17:09)
[2022-07-20 08:31] LABS: ANION GAP 3 MMOL/L (8-16); POTASSIUM 2.9 mmol/L (3.5-5.1)
[2022-07-20] MEDS ORDERED: POTASSIUM CHLORIDE TABS 20 MEQ TABLET.ER (FP) PO ONE ×2 (08:31→14:17)
[2022-07-20] MEDS ORDERED: KCL 10 MEQ IVPB 10 MEQ/100 ML INFUS.BAG IVPB SCH (08:45)
[2022-07-20] MEDS: AMIODARONE IN DEXTROSE,ISO-OSM 360 MG/200 ML BAG IV SCH (08:47)
[2022-07-20] MEDS: POLYETHYLENE GLYCOL (HEALTHYLAX) 3350 17 GM PACKET PO SCH (09:25)
[2022-07-20 11:58] LABS: ANISOCYTOSIS 2+; MACROCYTOSIS 0; OVALOCYTE 2+; TEAR DROP CELLS 1+
[2022-07-20] MEDS: AMIODARONE HCL 200 MG TABLET PO SCH (12:28)
[2022-07-20] MEDS ORDERED: FUROSEMIDE 40 MG TABLET (FP) PO SCH (12:30)
[2022-07-20] MEDS ORDERED: MAGNESIUM SULF 50% (8.12 MEQ/2 ML-1 GM VIAL) IVPB ONE (14:18)
[2022-07-20 17:02] LABS: IRON SERUM 37 ug/dL (50-175); TOTAL IRON BINDING CAPACITY 375 ug/dL (250-450)
[2022-07-20] MEDS: RIVAROXABAN 15 MG TABLET PO SCH (17:09)
[2022-07-20] MEDS ORDERED: LACTULOSE 20 GM/30 ML UDC (FOR ORAL USE ONLY) PO ONE (17:14)
[2022-07-20 17:16] LABS: RETICULOCYTES 4.18 % (0.5-1.5)
[2022-07-20 18:08] LABS: POTASSIUM 3.8 mmol/L (3.5-5.1)
[2022-07-20 18:10] LABS: MAGNESIUM 2.6 mg/dL (1.8-2.4)
[2022-07-20] MEDS: ATORVASTATIN CA 80 MG TABLET (FP) PO SCH (22:11)
[2022-07-20] MEDS: CHLORHEXIDINE GLUCONATE 4% CLEANSER FOR DECOLONIZATION TP SCH (22:11)
[2022-07-20] MEDS: SENNOSIDES 8.6MG TABLET (FP) PO SCH (22:12)
[2022-07-21] MEDS: METHIMAZOLE 5 MG TABLET PO SCH ×3 (06:22→22:36)
[2022-07-21 08:17] LABS: BASO % 0.3 % (0-2.0); EOS % 2.4 % (0-4.5); HEMATOCRIT 32.9 % (32.4-45.2); HEMOGLOBIN 10.5 GM/dL (10.7-15.3); LYMPH % 8.3 % (8-40); MCH 25.7 pg (25.7-33.7); MEAN CELL VOLUME 80.4 fl (80-96); MEAN PLT VOLUME 7.1 fl (7.5-11.1); MONO % 9.8 % (3.8-10.2); NEUT % 79.2 % (42.8-82.8); PLATELET COUNT 316 10^3/uL (134-434); RBC 4.09 M/mm3 (3.60-5.2); RDW 24.4 % (11.6-15.6); WHITE BLOOD COUNT 9.3 K/mm3 (4.0-10.0)
[2022-07-21] MEDS: AMINO ACIDS/PROTEIN HYDROLYS 30 ML LIQUID.PKT PO SCH ×2 (08:30→18:08)
[2022-07-21 08:31] LABS: POTASSIUM 3.8 mmol/L (3.5-5.1)
[2022-07-21 08:33] LABS: ALBUMIN 2.7 g/dl (3.4-5.0); BLOOD UREA NITROGEN 22.3 mg/dL (7-18); CALCIUM 8.7 mg/dL (8.5-10.1); MAGNESIUM 2.6 mg/dL (1.8-2.4)
[2022-07-21 08:37] LABS: BILIRUBIN,TOTAL 0.7 mg/dL (0.2-1); CREATININE 0.7 mg/dL (0.55-1.3); PHOSPHOROUS 2.6 mg/dL (2.5-4.9); TOT PROT 5.6 g/dl (6.4-8.2)
[2022-07-21] MEDS: METOPROLOL TARTRATE 50 MG TABLET (FP) PO SCH ×2 (10:52→22:36)
[2022-07-21] MEDS: POLYETHYLENE GLYCOL (HEALTHYLAX) 3350 17 GM PACKET PO SCH (10:53)
[2022-07-21] MEDS: AMIODARONE HCL 200 MG TABLET PO SCH (10:53)
[2022-07-21] MEDS: FUROSEMIDE 40 MG TABLET (FP) PO SCH (10:53)
[2022-07-21] MEDS ORDERED: NAPH,MB-DB/K PH,MBDB POWDER PACKET PO ONE (16:36)
[2022-07-21] MEDS ORDERED: GLYCERIN 1 RECTAL SUPPOSITORY, ADULT RC ONE (16:41)
[2022-07-21] MEDS ORDERED: POTASSIUM CHLORIDE TABS 20 MEQ TABLET.ER (FP) PO ONE (17:07)
[2022-07-21] MEDS: RIVAROXABAN 15 MG TABLET PO SCH (18:08)
[2022-07-21] MEDS: SENNOSIDES 8.6MG TABLET (FP) PO SCH (22:36)
[2022-07-21] MEDS: ATORVASTATIN CA 80 MG TABLET (FP) PO SCH (22:36)
[2022-07-22] MEDS: METHIMAZOLE 5 MG TABLET PO SCH ×3 (07:05→21:54)
[2022-07-22 07:56] LABS: HEMATOCRIT 31.8 % (32.4-45.2); HEMOGLOBIN 10.1 GM/dL (10.7-15.3); MCH 25.8 pg (25.7-33.7); MCHC 31.8 g/dl (32.0-36.0); MEAN PLT VOLUME 7.7 fl (7.5-11.1); PLATELET COUNT 293 10^3/uL (134-434); RBC 3.93 M/mm3 (3.60-5.2); RDW 25.1 % (11.6-15.6); WHITE BLOOD COUNT 8.5 K/mm3 (4.0-10.0)
[2022-07-22 08:10] LABS: POTASSIUM 4.1 mmol/L (3.5-5.1)
[2022-07-22 08:14] LABS: ALBUMIN 2.6 g/dl (3.4-5.0); BLOOD UREA NITROGEN 24.6 mg/dL (7-18); CALCIUM 8.7 mg/dL (8.5-10.1); MAGNESIUM 2.6 mg/dL (1.8-2.4)
[2022-07-22] MEDS: AMINO ACIDS/PROTEIN HYDROLYS 30 ML LIQUID.PKT PO SCH ×2 (08:17→17:17)
[2022-07-22 08:18] LABS: CREATININE 0.6 mg/dL (0.55-1.3); PHOSPHOROUS 2.5 mg/dL (2.5-4.9); TOT PROT 5.6 g/dl (6.4-8.2)
[2022-07-22 08:20] LABS: BILIRUBIN,TOTAL 0.7 mg/dL (0.2-1)
[2022-07-22] MEDS: METOPROLOL TARTRATE 50 MG TABLET (FP) PO SCH ×2 (09:22→21:55)
[2022-07-22] MEDS: FUROSEMIDE 40 MG TABLET (FP) PO SCH (09:22)
[2022-07-22] MEDS: POLYETHYLENE GLYCOL (HEALTHYLAX) 3350 17 GM PACKET PO SCH (09:22)
[2022-07-22] MEDS: AMIODARONE HCL 200 MG TABLET PO SCH (09:22)
[2022-07-22] MEDS: RIVAROXABAN 15 MG TABLET PO SCH (17:17)
[2022-07-22] MEDS: ATORVASTATIN CA 80 MG TABLET (FP) PO SCH (21:54)
[2022-07-22] MEDS: SENNOSIDES 8.6MG TABLET (FP) PO SCH (21:55)
[2022-07-22] MEDS ORDERED: dilTIAZem HCL 50 MG/10 ML - 10 ML VIAL IVPUSH ONE (23:38)
[2022-07-22] MEDS ORDERED: SODIUM CHLORIDE 500 ML IV STA (23:39)
[2022-07-23] MEDS ORDERED: DIGOXIN 0.5 MG/2 ML AMPUL IVPUSH ONE
[2022-07-23] MEDS ORDERED: SODIUM CHLORIDE 500 ML IV STA (04:04)
[2022-07-23] MEDS: DIGOXIN 0.5 MG/2 ML AMPUL IVPUSH SCH ×2 (05:57→12:00)
[2022-07-23] MEDS: METOPROLOL TARTRATE 50 MG TABLET (FP) PO SCH ×3 (06:02→21:11)
[2022-07-23] MEDS: METHIMAZOLE 5 MG TABLET PO SCH ×3 (06:03→21:19)
[2022-07-23 07:47] LABS: HEMATOCRIT 32.5 % (32.4-45.2); HEMOGLOBIN 10.2 GM/dL (10.7-15.3); MCH 25.6 pg (25.7-33.7); MCHC 31.5 g/dl (32.0-36.0); MEAN CELL VOLUME 81.4 fl (80-96); MEAN PLT VOLUME 7.3 fl (7.5-11.1); PLATELET COUNT 293 10^3/uL (134-434); RDW 25.1 % (11.6-15.6); WHITE BLOOD COUNT 7.6 K/mm3 (4.0-10.0)
[2022-07-23 08:08] LABS: POTASSIUM 3.7 mmol/L (3.5-5.1)
[2022-07-23 08:09] LABS: CALCIUM 8.3 mg/dL (8.5-10.1)
[2022-07-23 08:10] LABS: BLOOD UREA NITROGEN 24.9 mg/dL (7-18); MAGNESIUM 2.3 mg/dL (1.8-2.4)
[2022-07-23 08:12] LABS: CREATININE 0.6 mg/dL (0.55-1.3)
[2022-07-23] MEDS: POLYETHYLENE GLYCOL (HEALTHYLAX) 3350 17 GM PACKET PO SCH (09:08)
[2022-07-23] MEDS: AMINO ACIDS/PROTEIN HYDROLYS 30 ML LIQUID.PKT PO SCH ×2 (09:08→17:26)
[2022-07-23] MEDS: AMIODARONE HCL 200 MG TABLET PO SCH (09:08)
[2022-07-23] MEDS ORDERED: POTASSIUM CHLORIDE TABS 20 MEQ TABLET.ER (FP) PO ONE (12:26)
[2022-07-23 14:03] VITALS: BMI 24.7
[2022-07-23] MEDS: RIVAROXABAN 15 MG TABLET PO SCH (17:26)
[2022-07-23] MEDS: SENNOSIDES 8.6MG TABLET (FP) PO SCH (21:11)
[2022-07-23] MEDS: ATORVASTATIN CA 80 MG TABLET (FP) PO SCH (21:21)
[2022-07-24 07:11] LABS: HEMATOCRIT 35.1 % (32.4-45.2); HEMOGLOBIN 11.1 GM/dL (10.7-15.3); MCH 25.9 pg (25.7-33.7); MCHC 31.7 g/dl (32.0-36.0); MEAN CELL VOLUME 81.8 fl (80-96); MEAN PLT VOLUME 7.4 fl (7.5-11.1); PLATELET COUNT 312 10^3/uL (134-434); RBC 4.29 M/mm3 (3.60-5.2); WHITE BLOOD COUNT 7.1 K/mm3 (4.0-10.0)
[2022-07-24] MEDS: METHIMAZOLE 5 MG TABLET PO SCH ×3 (07:26→22:00)
[2022-07-24 07:31] LABS: POTASSIUM 4.2 mmol/L (3.5-5.1)
[2022-07-24] MEDS: METOPROLOL TARTRATE 25 MG TABLET (FP) PO SCH ×3 (07:33→21:29)
[2022-07-24 07:38] LABS: CALCIUM 8.5 mg/dL (8.5-10.1)
[2022-07-24 07:39] LABS: ALBUMIN 2.8 g/dl (3.4-5.0); BLOOD UREA NITROGEN 22.5 mg/dL (7-18); MAGNESIUM 2.4 mg/dL (1.8-2.4)
[2022-07-24] MEDS: METOPROLOL TARTRATE 50 MG TABLET (FP) PO SCH (07:39)
[2022-07-24 07:42] LABS: BILIRUBIN,TOTAL 0.5 mg/dL (0.2-1); CREATININE 0.6 mg/dL (0.55-1.3); TOT PROT 5.8 g/dl (6.4-8.2)
[2022-07-24 07:45] LABS: PHOSPHOROUS 2.9 mg/dL (2.5-4.9)
[2022-07-24] MEDS: AMINO ACIDS/PROTEIN HYDROLYS 30 ML LIQUID.PKT PO SCH ×2 (08:16→17:22)
[2022-07-24] MEDS: AMIODARONE HCL 200 MG TABLET PO SCH (09:19)
[2022-07-24] MEDS: POLYETHYLENE GLYCOL (HEALTHYLAX) 3350 17 GM PACKET PO SCH (09:19)
[2022-07-24] MEDS: FUROSEMIDE 40 MG TABLET (FP) PO SCH (10:49)
[2022-07-24] MEDS: RIVAROXABAN 15 MG TABLET PO SCH (17:23)
[2022-07-24] MEDS: DIGOXIN 0.25 MG TABLET PO SCH (17:23)
[2022-07-24] MEDS: ATORVASTATIN CA 80 MG TABLET (FP) PO SCH (21:31)
[2022-07-24] MEDS: SENNOSIDES 8.6MG TABLET (FP) PO SCH (21:31)
[2022-07-24] MEDS: ACETAMINOPHEN 325 MG TABLET (FP) PO PRN (21:38)
[2022-07-25] MEDS: METHIMAZOLE 5 MG TABLET PO SCH ×3 (06:01→22:21)
[2022-07-25] MEDS: METOPROLOL TARTRATE 25 MG TABLET (FP) PO SCH ×3 (06:02→22:10)
[2022-07-25 08:28] LABS: POTASSIUM 4.7 mmol/L (3.5-5.1)
[2022-07-25 08:33] LABS: ALBUMIN 2.8 g/dl (3.4-5.0); CALCIUM 8.9 mg/dL (8.5-10.1)
[2022-07-25 08:34] LABS: BLOOD UREA NITROGEN 21.7 mg/dL (7-18)
[2022-07-25 08:36] LABS: CREATININE 0.6 mg/dL (0.55-1.3)
[2022-07-25 08:38] LABS: BILIRUBIN,TOTAL 0.5 mg/dL (0.2-1)
[2022-07-25] MEDS: FUROSEMIDE 40 MG TABLET (FP) PO SCH (09:46)
[2022-07-25] MEDS: AMINO ACIDS/PROTEIN HYDROLYS 30 ML LIQUID.PKT PO SCH ×2 (09:46→17:36)
[2022-07-25] MEDS: AMIODARONE HCL 200 MG TABLET PO SCH (09:46)
[2022-07-25] MEDS: POLYETHYLENE GLYCOL (HEALTHYLAX) 3350 17 GM PACKET PO SCH (09:47)
[2022-07-25] MEDS: DIGOXIN 0.25 MG TABLET PO SCH (17:36)
[2022-07-25] MEDS: RIVAROXABAN 15 MG TABLET PO SCH (17:37)
[2022-07-25] MEDS: ATORVASTATIN CA 80 MG TABLET (FP) PO SCH (22:11)
[2022-07-25] MEDS: ACETAMINOPHEN 325 MG TABLET (FP) PO PRN (22:12)
[2022-07-25] MEDS: SENNOSIDES 8.6MG TABLET (FP) PO SCH (22:20)
[2022-07-26] MEDS: METOPROLOL TARTRATE 25 MG TABLET (FP) PO SCH ×2 (06:36→13:49)
[2022-07-26] MEDS: METHIMAZOLE 5 MG TABLET PO SCH ×3 (06:37→21:34)
[2022-07-26] MEDS: FUROSEMIDE 40 MG TABLET (FP) PO SCH (10:27)
[2022-07-26] MEDS: AMIODARONE HCL 200 MG TABLET PO SCH (10:27)
[2022-07-26] MEDS: AMINO ACIDS/PROTEIN HYDROLYS 30 ML LIQUID.PKT PO SCH ×2 (10:27→17:12)
[2022-07-26] MEDS: POLYETHYLENE GLYCOL (HEALTHYLAX) 3350 17 GM PACKET PO SCH (10:27)
[2022-07-26 11:55] LABS: BASO % 0.5 % (0-2.0); EOS % 0.5 % (0-4.5); HEMATOCRIT 35.1 % (32.4-45.2); HEMOGLOBIN 11.2 GM/dL (10.7-15.3); LYMPH % 7.6 % (8-40); MCHC 31.8 g/dl (32.0-36.0); MEAN CELL VOLUME 81.6 fl (80-96); MEAN PLT VOLUME 7.8 fl (7.5-11.1); MONO % 4.9 % (3.8-10.2); NEUT % 86.5 % (42.8-82.8); PLATELET COUNT 358 10^3/uL (134-434); RDW 24.1 % (11.6-15.6); WHITE BLOOD COUNT 8.4 K/mm3 (4.0-10.0)
[2022-07-26 12:02] LABS: INR 1.65 (0.83-1.09)
[2022-07-26 12:04] LABS: ACTIVATED PTT 47.5 SECONDS (25.2-36.5)
[2022-07-26 12:49] LABS: ANISOCYTOSIS 2+; MACROCYTOSIS 0
[2022-07-26] MEDS ORDERED: metoPROLOL SUCCINATE 25 MG TAB.SR.24H (FP) PO ONE (14:17)
[2022-07-26] MEDS: DIGOXIN 0.25 MG TABLET PO SCH (17:12)
[2022-07-26] MEDS: RIVAROXABAN 15 MG TABLET PO SCH (17:14)
[2022-07-26] MEDS: ATORVASTATIN CA 80 MG TABLET (FP) PO SCH (21:34)
[2022-07-26] MEDS: SENNOSIDES 8.6MG TABLET (FP) PO SCH (21:35)
[2022-07-27] MEDS: METHIMAZOLE 5 MG TABLET PO SCH ×2 (05:56→14:01)
[2022-07-27 07:28] LABS: HEMATOCRIT 33.8 % (32.4-45.2); MCH 26.2 pg (25.7-33.7); MCHC 32.5 g/dl (32.0-36.0); MEAN CELL VOLUME 80.5 fl (80-96); MEAN PLT VOLUME 8.5 fl (7.5-11.1); PLATELET COUNT 383 10^3/uL (134-434); RBC 4.19 M/mm3 (3.60-5.2); RDW 24.1 % (11.6-15.6); WHITE BLOOD COUNT 7.4 K/mm3 (4.0-10.0)
[2022-07-27 07:39] LABS: POTASSIUM 4.1 mmol/L (3.5-5.1)
[2022-07-27 07:44] LABS: ALBUMIN 2.9 g/dl (3.4-5.0); CALCIUM 9.1 mg/dL (8.5-10.1)
[2022-07-27 07:45] LABS: BLOOD UREA NITROGEN 26.7 mg/dL (7-18); MAGNESIUM 2.2 mg/dL (1.8-2.4)
[2022-07-27 07:48] LABS: CREATININE 0.6 mg/dL (0.55-1.3); PHOSPHOROUS 3.5 mg/dL (2.5-4.9)
[2022-07-27 07:49] LABS: BILIRUBIN,TOTAL 0.4 mg/dL (0.2-1)
[2022-07-27 07:50] LABS: TOT PROT 6.1 g/dl (6.4-8.2)
[2022-07-27] MEDS: AMINO ACIDS/PROTEIN HYDROLYS 30 ML LIQUID.PKT PO SCH (07:50)
[2022-07-27 08:00] VITALS: RESP 18
[2022-07-27 09:21] VITALS: BP 122/70; PULSE 90; TEMP 97.6
[2022-07-27] MEDS: FUROSEMIDE 40 MG TABLET (FP) PO SCH (09:25)
[2022-07-27] MEDS: AMIODARONE HCL 200 MG TABLET PO SCH (09:26)
[2022-07-27] MEDS: POLYETHYLENE GLYCOL (HEALTHYLAX) 3350 17 GM PACKET PO SCH (09:27)
== END 2022-07-27 15:45 | disposition home or self-care (01) | DRG 308 ==
LOC: JER 09:57 → JERBED 13:52 → JICU 07-13 00:54 → J4W 07-20 21:24
PROVIDERS: ADMIT Internal Medicine; ATTEND Internal Medicine
PROC: 30233N1 Transfusion of Nonautologous Red Blood Cells into Peripheral Vein, Percutaneous Approach (ICD-10-PCS; principal; 2022-07-12)
DX: I48.19 Other persistent atrial fibrillation (principal); I50.33 Acute on chronic diastolic (congestive) heart failure; R57.0 Cardiogenic shock; I48.92 Unspecified atrial flutter; E78.5 Hyperlipidemia, unspecified; I27.20 Pulmonary hypertension, unspecified; I11.0 Hypertensive heart disease with heart failure; D50.9 Iron deficiency anemia, unspecified; I25.119 Atherosclerotic heart disease of native coronary artery with unspecified angina pectoris; E05.80 Other thyrotoxicosis without thyrotoxic crisis or storm; R00.2 Palpitations; M06.8A Other specified rheumatoid arthritis, other specified site; K59.00 Constipation, unspecified; R04.0 Epistaxis; R00.0 Tachycardia, unspecified
CPT/HCPCS: 0241U-QW; 36415; 36430; 71045-TC-FY; 80048; 80053; 80061; 80076; 82272; 82607; 82728; 82803; 83036; 83051; 83540; 83550; 83735; 83880; 84100; 84132; 84436; 84443; 84479; 84484; 85025; 85027; 85045; 85610; 85730; 86850; 86900; 86901; 86922; 93005; 93010; 93306-TC; 93926-TC; 94660; 94761; 97162-GP; 99285-25; J0282; J1756; J3490; P9058

== ENCOUNTER 2024-10-11 22:42 | Inpatient (IN) | payer BC, OTHER ==
[2024-10-11 23:11] VITALS: BMI 27.4
[2024-10-12 00:08] LABS: ABSOLUTE IMMATURE GRANULOCYTES 0.03 x10^3/uL (0.0-0.031); BASOPHILS # 0.02 x10^3/uL (0.01-0.08); EOSINOPHIL % 0.5 % (0.7-5.8); EOSINOPHILS # 0.04 x10^3/uL (0.04-0.36); MCHC 31.7 g/dl (32.2-35.5); MEAN CELL VOLUME 96.1 fl (79.4-94.8); MEAN PLT VOLUME 8.9 fl (9.4-12.3); MONOCYTE # 0.64 x10^3/uL (0.24-0.86); MONOCYTE % 7.2 % (4.7-12.5); RDW 16.7 % (12.5-17.0)
[2024-10-12] MEDS: SODIUM CHLORIDE 0.9% 500 ML INFUS.BAG IV ONE (00:10)
[2024-10-12 00:37] LABS: CO2 30.0 mmol/L (21-32); GLUCOSE,RANDOM 121.0 mg/dL (74-106)
[2024-10-12 00:40] LABS: CREATININE 1.2 mg/dL (0.55-1.3); SGOT/AST 34.0 U/L (15-37); SGPT/ALT 72.0 U/L (13-61)
[2024-10-12 00:42] LABS: TOT PROT 7.0 g/dl (6.4-8.2)
[2024-10-12 00:43] LABS: ALK PHOS 121.0 U/L (45-117)
[2024-10-12 00:45] LABS: N-TERMINAL BNP 1029.1 pg/ml (5-450)
[2024-10-12] MEDS: HEPARIN NA (PORCINE) 5,000 UNITS/ML 1ML VIAL SQ SCH (06:01)
[2024-10-12 08:03] LABS: CO2 29.0 mmol/L (21-32)
[2024-10-12 08:04] LABS: GLUCOSE,RANDOM 90.0 mg/dL (74-106)
[2024-10-12 08:06] LABS: CREATININE 0.9 mg/dL (0.55-1.3); MCHC 31.1 g/dl (32.2-35.5); MEAN CELL VOLUME 97.4 fl (79.4-94.8); MEAN PLT VOLUME 9.7 fl (9.4-12.3); RDW 16.9 % (12.5-17.0); SGOT/AST 29.0 U/L (15-37); SGPT/ALT 62.0 U/L (13-61)
[2024-10-12 08:07] LABS: TOT PROT 6.6 g/dl (6.4-8.2)
[2024-10-12 08:08] LABS: ALK PHOS 118.0 U/L (45-117)
[2024-10-12] MEDS: FUROSEMIDE 40 MG TABLET (FP) PO SCH (09:14)
[2024-10-12] MEDS: ASPIRIN 81 MG CHEWABLE TABLETS PO SCH (09:14)
[2024-10-12] MEDS: FOLIC ACID 1 MG TABLET (FP) PO SCH (09:14)
[2024-10-12] MEDS: METHIMAZOLE 5 MG TABLET PO SCH (10:30)
[2024-10-12] MEDS: METHOTREXATE 2.5 MG TABLET PO SCH (10:31)
[2024-10-12 14:16] VITALS: BP 81/59; PULSE 107; RESP 19; TEMP 98.2
[2024-10-12 16:39] LABS: LDL CHOLESTEROL (ONLY SJRH) 160.0 mg/dL (5-100)
[2024-10-12] MEDS ORDERED: ATORVASTATIN CA 10 MG TABLET (FP) PO SCH (22:00)
== END 2024-10-12 17:35 | disposition home or self-care (01) | DRG 309 ==
LOC: JER 22:42 → JERBED 10-12 01:56 → J4S 10-12 05:11
PROVIDERS: ADMIT Internal Medicine
DX: I49.5 Sick sinus syndrome (principal); I48.20 Chronic atrial fibrillation, unspecified; I50.32 Chronic diastolic (congestive) heart failure; J81.1 Chronic pulmonary edema; I27.22 Pulmonary hypertension due to left heart disease; I11.0 Hypertensive heart disease with heart failure; E05.90 Thyrotoxicosis, unspecified without thyrotoxic crisis or storm; E78.00 Pure hypercholesterolemia, unspecified; E78.5 Hyperlipidemia, unspecified; E83.41 Hypermagnesemia
CPT/HCPCS: 36415; 71046-TC-FY; 80053; 80061; 83036; 83735; 83880; 84100; 84439; 84443; 84484; 85025; 85027; 93005; 93010; 93306-TC; 99285-25; J8610